=== PATIENT | male | born 1960 | race Two or more races ===

== ENCOUNTER 2019-11-07 14:42 | Inpatient (IN) | payer MEDICARE, OTHER ==
[~2019-11-07] VITALS: Ht 165.1 cm; Wt 59.9 kg
[~2019-11-07 14:42] MED LIST: ACET650S26 NG; AMLO10TA7 GT; Blood Sugar Diagnostic VI; CHOL10002 GT; FOLI0.8T2 GT; HYDR50TA68 GT; INSU100V28 SQ; LOSA50TA3 GT; MINO2.5T GT; PROT30LI GT; SEVE0.8P GT; SUCR1ORA GT; ZINC1CAP2 GT
--- NOTE | 2019-11-07 15:06 | NUR ---
PT IS IN ROOM #1B. DR MIRZA EVALUATED THE PT.
[2019-11-07 15:26] LABS: BASOPHILS # (AUTO) 0.1 K/uL (0.0-8.0); EOSINOPHILS # (AUTO) 0.2 K/uL (0.0-0.7); EOSINOPHILS % (AUTO) 1.3 % (0.0-7.0); NEUTROPHILS # (AUTO) 12.1 K/uL (1.8-8.9); WHITE BLOOD COUNT (AUTO) 14.2 K/uL (3.6-10.2)
[2019-11-07 15:27] LABS: BASOPHILS % (AUTO) 0.9 % (0.0-2.0); LYMPHOCYTES # (AUTO) 1.1 K/uL (20.0-40.0); LYMPHOCYTES % (AUTO) 7.4 % (20.5-51.5); MEAN CORPUSCULAR HEMOGLOBIN 30.6 uug (23.8-33.4); MEAN CORPUSCULAR HGB CONC 34 g/dL (32.5-36.3); MEAN CORPUSCULAR VOLUME 91.4 fL (73.0-96.2); MONOCYTES # (AUTO) 0.7 K/uL (2.0-10.0); NEUTROPHILS % (AUTO) 85.4 % (38.5-71.5); PLATELET COUNT (AUTO) 268 K/uL (152-348)
[2019-11-07] MEDS ORDERED: ONDA4TAB5 GT (15:28)
[2019-11-07] MEDS ORDERED: EPOE1VIA12 SQ (15:28)
[2019-11-07] MEDS ORDERED: IPRA3AMP22 HHN (15:28)
[2019-11-07] MEDS ORDERED: LEVO25TA9 GT (15:28)
[2019-11-07 15:29] LABS: RED BLOOD CELL COUNT(AUTO) 2.23 MIL/uL (4.06-5.63)
[2019-11-07 15:30] LABS: HEMATOCRIT 20.4 % (36.7-47.1); HEMOGLOBIN 6.8 g/dL (12.5-16.3)
[2019-11-07 15:34] LABS: CREATININE 3.2 mg/dL (0.6-1.3); POTASSIUM 2.9 mmol/L (3.5-5.1)
--- NOTE | 2019-11-07 15:37 | NUR ---
called [facility] for panel call
[2019-11-07 15:39] LABS: BILIRUBIN,TOTAL 0.3 mg/dL (0.2-1.0)
[2019-11-07 15:40] LABS: BILIRUBIN,DIRECT 0.1 mg/dL (0.0-0.2); TOTAL PROTEIN, SERUM 7.3 g/dL (6.4-8.2)
--- NOTE | 2019-11-07 17:03 | NUR ---
DR MIRZA DISCUSSED PT CARE WITH DR ARORA. ACCORDING TO DR ARORA PT DOES NOT NEED COVID19 TEST ORIOR TO ADMISSION TO [facility].
[2019-11-07] MEDS ORDERED: Z GUARD REMEDY PASTE 57 GM TUBE TOP PRN (17:15)
[2019-11-07] MEDS ORDERED: MAGNESIUM HYDROXIDE 30 ML LIQUID UDC GT PRN (17:15)
[2019-11-07] MEDS ORDERED: ACETAMINOPHEN 325 MG TABLET GT PRN (17:15)
--- NOTE | 2019-11-07 18:22 | NUR ---
REPORT WAS GIVEN TO RN [facility]. PT WAS TRANSFERED TO [facility] ROOM #312.
[2019-11-07 18:39] LABS: NEUTROPHILS % (MANUAL) 85 % (42-75)
[2019-11-07 18:40] LABS: EOSINOPHILS % (MANUAL) 3 % (0-8); LYMPHOCYTES % (MANUAL) 7 % (20-40); MONOCYTES % (MANUAL) 5 % (2-10)
[2019-11-07 19:45] VITALS: BP 138/50
[2019-11-07] MEDS: POTASSIUM CHLORIDE 50 ML IV SCH ×4 (19:45→23:09)
[2019-11-07] MEDS: HYDROCODONE/APAP 5-325MG TABLET GT PRN (20:39)
[2019-11-07] MEDS ORDERED: ONDANSETRON HCL 4 MG TABLET GT PRN (20:45)
[2019-11-07] MEDS ORDERED: ACETAMINOPHEN 650 MG/20 ML UDC- SA PATIENTS-PAIN ONLY NG PRN (20:45)
[2019-11-07] MEDS ORDERED: INSULIN REGULAR, HUMAN 300 UNIT/3 ML VIAL SQ PRN ×2 (20:45→21:15)
[2019-11-07] MEDS ORDERED: DEXTROSE 50% 50 ML DISP.SYRIN IV PRN (21:15)
[2019-11-07] MEDS ORDERED: BLOOD SUGAR DIAGNOSTIC 1 EACH STRIP VI SCH (21:15)
[2019-11-07] MEDS: MINOXIDIL 2.5 MG TABLET GT SCH (22:34)
[2019-11-07] MEDS: hydrALAZINE HCL 50 MG TABLET GT SCH (22:35)
[2019-11-07] MEDS: SUCRALFATE 1 G/10 ML LIQUID UDC GT SCH (22:38)
[2019-11-07 23:14] VITALS: BP 125/52
[2019-11-07 23:29] VITALS: BP 133/49
[2019-11-08] VITALS (8 sets, daily range): BP systolic 108–147; BP diastolic 27–74
[2019-11-08] MEDS ORDERED: Medication Not On Formulary EA (Ipratropium/Albuterol Sulfate (Ipratr-Albuterol 0.5-3 Mg HHN SCH
[2019-11-08] MEDS: BLOOD SUGAR DIAGNOSTIC 1 EACH STRIP VI SCH ×5 (00:06→23:30)
[2019-11-08] MEDS: NEPRO 1000 ML GT PRN ×2 (00:39→23:30)
[2019-11-08] MEDS: ALBUTEROL SULFATE 2.5 MG/ 0.5 ML NEBU NEB SCH ×4 (02:20→20:53)
[2019-11-08] MEDS: IPRATROPIUM BROMIDE 0.5 MG/2.5 ML NEBU NEB SCH ×4 (02:20→20:53)
[2019-11-08] MEDS: POTASSIUM CHLORIDE 50 ML IV SCH ×4 (03:12→06:07)
[2019-11-08] MEDS: MINOXIDIL 2.5 MG TABLET GT SCH ×3 (05:10→20:47)
[2019-11-08] MEDS: hydrALAZINE HCL 50 MG TABLET GT SCH ×3 (05:10→22:22)
--- NOTE | 2019-11-08 06:00 | NUR ---
ADMITTED TO ROOM 312; ADMISSION PROCEDURES DONE; RECTAL TUBE CHANGED; BLOOD TRANSFUSION DONE AND TOLERATED WELL; MAMTA CARE DONE; REFERRED TO [facility] FOR SKIN ISSUES; POTASSIUM REPLACED PER DR ARORA; REPOSITIONED Q2H; C/O PAIN LAST NIGHT AND MEDICATED WITH NORCO WITH GOOD RESULT.
[2019-11-08] MEDS: SUCRALFATE 1 G/10 ML LIQUID UDC GT SCH ×4 (06:09→20:49)
[2019-11-08] MEDS: LEVOTHYROXINE SODIUM 25 MCG TABLET GT SCH (06:09)
--- NOTE | 2019-11-08 07:15 | NUR ---
Received patient in bed, awake and responsive. trach tube intact and midline. connected to ventilator with Settings of AC 20 VT 550 peep +5 FiO2 40%. No signs of distress noted. No complain of Pain or discomfort. GT intact and patent. Abdomen soft and non distended. Will continue to monitor.
[2019-11-08 07:37] LABS: BASOPHILS # (AUTO) 0.2 K/uL (0.0-8.0); BASOPHILS % (AUTO) 1.4 % (0.0-2.0); EOSINOPHILS # (AUTO) 0.3 K/uL (0.0-0.7); EOSINOPHILS % (AUTO) 1.8 % (0.0-7.0); HEMATOCRIT 22.1 % (36.7-47.1); LYMPHOCYTES # (AUTO) 1.2 K/uL (20.0-40.0); LYMPHOCYTES % (AUTO) 7.8 % (20.5-51.5); MEAN CORPUSCULAR HEMOGLOBIN 30.1 uug (23.8-33.4); MEAN CORPUSCULAR HGB CONC 34 g/dL (32.5-36.3); MEAN CORPUSCULAR VOLUME 89.5 fL (73.0-96.2); MONOCYTES # (AUTO) 0.8 K/uL (2.0-10.0); MONOCYTES % (AUTO) 5.3 % (0.0-11.0); NEUTROPHILS % (AUTO) 83.7 % (38.5-71.5); PLATELET COUNT (AUTO) 241 K/uL (152-348); WHITE BLOOD COUNT (AUTO) 15.5 K/uL (3.6-10.2)
--- NOTE | 2019-11-08 07:46 | NUR ---
PT RECEIVED TRACH TO VENT ON CMV, MINDY #8 TRACH IS PATENT AND SECURE. PT IS ON A MEJIA VENT ON SETTINGS OF A/C 20, VT 550, PEEP +5, AND 40% FIO2. PT IS TOLERATING VENT SETTINGS WELL, NO RESP. DISTRESS NOTED. IN-LINE TX TOLERATED WELL, NO ADVERSE REACTION NOTED. BACK-UP TRACH AND BVM AT BEDSIDE. VENT PLUGGED INTO RED OUTLET. SUCTION PRN. WILL CONTINUE TO MONITOR.
[2019-11-08 07:58] LABS: CREATININE 3.9 mg/dL (0.6-1.3); MAGNESIUM 2.3 mg/dL (1.8-2.4); PHOSPHOROUS 3.2 mg/dL (2.5-4.9); POTASSIUM 3.9 mmol/L (3.5-5.1)
[2019-11-08] MEDS: ZINC SULFATE 220 MG CAPSULE GT SCH (08:10)
[2019-11-08] MEDS: ACETAMINOPHEN 650 MG/20.3 ML LIQUID UDC GT PRN ×2 (08:10→16:51)
[2019-11-08] MEDS: CHOLECALCIFEROL 1,000 UNIT TABLET GT SCH (08:10)
[2019-11-08] MEDS: FOLIC ACID/VITAMIN B COMP W-C TABLET GT SCH (08:11)
[2019-11-08] MEDS: PROTEIN SUPPLEMENT (PROSTAT) 30 ML LIQUID PO SCH (08:11)
[2019-11-08 08:18] LABS: RED BLOOD CELL COUNT(AUTO) 2.47 MIL/uL (4.06-5.63)
[2019-11-08 08:19] LABS: HEMOGLOBIN 7.4 g/dL (12.5-16.3)
[2019-11-08] MEDS: SEVELAMER CARBONATE 800 MG POWD.PACK GT SCH ×3 (08:42→17:29)
[2019-11-08] MEDS: AMLODIPINE 10 MG TABLET GT SCH (09:00)
[2019-11-08] MEDS: LOSARTAN POTASSIUM 50 MG TABLET GT SCH ×2 (09:00→17:00)
--- NOTE | 2019-11-08 09:00 | NUR ---
Blood pressure medication was held, Patient will have Dialysis today.
[2019-11-08] MEDS: HYDROCODONE/APAP 5-325MG TABLET GT PRN ×2 (13:42→20:47)
--- NOTE | 2019-11-08 18:21 | NUR ---
patient in bed, trach tube intact and midline. No signs of distress noted. Afebrile. pain medication given as ordered. Patient is dialyzing at this time started at 1630. BS at 1800 was 114. All needs attended and met. kept clean and comfortable. Will continue to monitor.
--- NOTE | 2019-11-08 18:50 | NUR ---
Dialysis output 2000ml.
[2019-11-09] VITALS: BP 156/44
[2019-11-09] MEDS: IPRATROPIUM BROMIDE 0.5 MG/2.5 ML NEBU NEB SCH ×4 (01:01→19:53)
[2019-11-09] MEDS: ALBUTEROL SULFATE 2.5 MG/ 0.5 ML NEBU NEB SCH ×4 (01:01→19:53)
[2019-11-09] MEDS: HYDROCODONE/APAP 5-325MG TABLET GT PRN ×3 (03:53→14:59)
[2019-11-09] MEDS: MINOXIDIL 2.5 MG TABLET GT SCH ×3 (03:55→21:10)
--- NOTE | 2019-11-09 04:00 | NUR ---
Pt rested well; oral care and trache care done; cleansed enrique rectum and applied mepilex to sacrum; needs attended.
[2019-11-09 04:06] VITALS: BP 134/42
[2019-11-09] MEDS: hydrALAZINE HCL 50 MG TABLET GT SCH ×3 (05:50→21:39)
[2019-11-09] MEDS: BLOOD SUGAR DIAGNOSTIC 1 EACH STRIP VI SCH ×3 (05:51→17:26)
[2019-11-09] MEDS: LEVOTHYROXINE SODIUM 25 MCG TABLET GT SCH (06:17)
[2019-11-09] MEDS: SUCRALFATE 1 G/10 ML LIQUID UDC GT SCH ×4 (06:17→21:11)
--- NOTE | 2019-11-09 06:37 | NUR ---
Pt rested well in between care; VSS; needs attended; HD nurse here and patient refused dialysis this AM; Dr Pantoja here as well and is aware.
[2019-11-09 06:50] LABS: BASOPHILS # (AUTO) 0.1 K/uL (0.0-8.0); BASOPHILS % (AUTO) 0.8 % (0.0-2.0); EOSINOPHILS # (AUTO) 0.3 K/uL (0.0-0.7); EOSINOPHILS % (AUTO) 1.8 % (0.0-7.0); HEMATOCRIT 21.4 % (36.7-47.1); LYMPHOCYTES # (AUTO) 0.8 K/uL (20.0-40.0); LYMPHOCYTES % (AUTO) 4.5 % (20.5-51.5); MEAN CORPUSCULAR HEMOGLOBIN 30.5 uug (23.8-33.4); MEAN CORPUSCULAR HGB CONC 34 g/dL (32.5-36.3); MEAN CORPUSCULAR VOLUME 90.5 fL (73.0-96.2); MONOCYTES # (AUTO) 0.9 K/uL (2.0-10.0); MONOCYTES % (AUTO) 4.9 % (0.0-11.0); NEUTROPHILS # (AUTO) 16.1 K/uL (1.8-8.9); PLATELET COUNT (AUTO) 249 K/uL (152-348); WHITE BLOOD COUNT (AUTO) 18.3 K/uL (3.6-10.2)
[2019-11-09 06:55] LABS: CREATININE 3.3 mg/dL (0.6-1.3); POTASSIUM 3.6 mmol/L (3.5-5.1)
[2019-11-09 07:20] VITALS: BP 186/75
[2019-11-09 07:23] LABS: ABG BASE EXCESS 1.9 mmol/L; ABG HCO3 26.2 mmol/L; ABG PCO2 39.5 mmHg (35.0-45.0); ABG PO2 148.6 mmHg (75.0-100.0); ABG SITE RIGHT RADIAL; ABG TOTAL HEMOGLOBIN 7.4 G/dL (13.5-18.0); COHb 1.2 % (0.5-1.5); MetHb 0.6 % (0.0-1.5); O2Hb 97.8 % (94.0-97.0); VENT MODE VENT - A/C; VT, ABG 550 mL
[2019-11-09] MEDS: ACETAMINOPHEN 650 MG/20.3 ML LIQUID UDC GT PRN ×2 (07:23→13:32)
[2019-11-09] MEDS: PROTEIN SUPPLEMENT (PROSTAT) 30 ML LIQUID PO SCH (07:25)
[2019-11-09] MEDS: SEVELAMER CARBONATE 800 MG POWD.PACK GT SCH ×3 (07:25→17:10)
--- NOTE | 2019-11-09 07:30 | NUR ---
Received patient in bed, trach tube intact and midline connected to Ventilator. No complain of SOB, saturating 100%. patient noted with Temp of 100.1, Tylenol 650mg given as ordered. No complain of pain or discomfort. Kept clean and comfortable. Will continue to monitor.
[2019-11-09 07:53] LABS: HEMOGLOBIN 7.2 g/dL (12.5-16.3); RED BLOOD CELL COUNT(AUTO) 2.36 MIL/uL (4.06-5.63)
[2019-11-09] MEDS: FOLIC ACID/VITAMIN B COMP W-C TABLET GT SCH (08:02)
[2019-11-09] MEDS: CHOLECALCIFEROL 1,000 UNIT TABLET GT SCH (08:02)
[2019-11-09] MEDS: ZINC SULFATE 220 MG CAPSULE GT SCH (08:02)
[2019-11-09] MEDS: LOSARTAN POTASSIUM 50 MG TABLET GT SCH ×2 (08:17→16:41)
[2019-11-09] MEDS: AMLODIPINE 10 MG TABLET GT SCH (08:18)
--- NOTE | 2019-11-09 10:33 | NUR ---
Started Blood transfusion, BP 120/27 P 100 R 20 T 98.8 PA 0/10.
[2019-11-09 11:30] VITALS: BP 130/28
--- NOTE | 2019-11-09 12:07 | NUR ---
WOUND CARE CONSULT: PT NOT TURNED AT THIS TIME DUE TO BLOOD TRANSFUSION IN PROGRESS. LEFT HEEL INTACT DEEP TISSUE INJURY NOTED TO BE PRESENT ON ADMISSION. REVIEWED ADMISSION PHOTOS WHICH SHOW SOME INCONTINENCE ASSOCIATED SKIN DAMAGE AROUND RECTAL TUBE AND THICKENED SCAR TO SACRAL AREA, PRESENT ON ADMISSION. RECOMMENDATIONS MADE FOR SKIN PROTECTION AND WOUND CARE. DISCUSSED WITH NURSING STAFF. MD IN AGREEMENT WITH PLAN OF CARE. Addendum: 11/09/19 at 1211 by GABI NICHOLSON RN FIRST STEP LOW AIRLOSS MATTRESS IS ON ORDER.
[2019-11-09] MEDS ORDERED: EPOETIN ALFA 10,000 UNITS/ML VIAL SQ SCH (15:00)
[2019-11-09 15:01] LABS: BASOPHILS # (AUTO) 0.1 K/uL (0.0-8.0); BASOPHILS % (AUTO) 0.4 % (0.0-2.0); EOSINOPHILS # (AUTO) 0.2 K/uL (0.0-0.7); EOSINOPHILS % (AUTO) 0.6 % (0.0-7.0); HEMATOCRIT 25.6 % (36.7-47.1); HEMOGLOBIN 8.4 g/dL (12.5-16.3); LYMPHOCYTES # (AUTO) 0.9 K/uL (20.0-40.0); MEAN CORPUSCULAR HEMOGLOBIN 29.7 uug (23.8-33.4); MEAN CORPUSCULAR HGB CONC 33 g/dL (32.5-36.3); MONOCYTES # (AUTO) 1.4 K/uL (2.0-10.0); MONOCYTES % (AUTO) 4.8 % (0.0-11.0); NEUTROPHILS # (AUTO) 27.2 K/uL (1.8-8.9); NEUTROPHILS % (AUTO) 91.2 % (38.5-71.5); PLATELET COUNT (AUTO) 272 K/uL (152-348); RED BLOOD CELL COUNT(AUTO) 2.81 MIL/uL (4.06-5.63); WHITE BLOOD COUNT (AUTO) 29.9 K/uL (3.6-10.2)
[2019-11-09 15:28] VITALS: BP 148/56
--- NOTE | 2019-11-09 17:14 | NUR ---
Patient is awake and responsive. trach tube intact and midline, connected to ventilator. Suctioned PRN. Pain medication given as ordered. Patient noted with temperature of 100.0F, tylenol 650 mg given as ordered. continuos cooling measures provided Dr. Orona is aware. current temperature 99.8F. 1 unit PRBC given, current hgb is 8.4. kept clean and comfortable. All needs attended and met. Will endorse to Oncoming Nurse.
[2019-11-09 20:11] VITALS: BP 117/37
--- NOTE | 2019-11-09 20:26 | NUR ---
RECEIVED PT IN BED,,ALERT ORIENTED, VERBALLY RESPONSIVE,MACEDONIAN SPEAKING, ABLE TO MAKE NEEDS KNOWN.TELE READING SINUS TACH 105, HOB UP, REPOSITIONED FOR COMFORT, USES YONKER SUCTION TIP PRN,COOLING MEASURES IMPLEMENTED, STILL WITH TEMP 100.2, GT FEEDING ON AT 60 ML./HR,RT UPPER ARM PICC LINE INTACT AND PATENT, AV SHUNT ON L UPPER ARM PRESENT.SAMANTHA HEELS OFF LOADED.ABDOMEN SOFT AND NON DISTENDE.RECTAL RUBE IN PLACE.CALL LITE W/I REACH.RESP THERAPIST AT BEDSIDE, TREATMENT ADMINISTERED AND TOLERATED WELL.KEPT COOL AND COMFORTABLE.
--- NOTE | 2019-11-09 22:00 | NUR ---
RESTING QUIETLY , NO ACUTE DISTRESS NOTED.
[2019-11-10] VITALS (10 sets, daily range): BP systolic 101–141; BP diastolic 26–60
[2019-11-10] MEDS: BLOOD SUGAR DIAGNOSTIC 1 EACH STRIP VI SCH ×5 (00:15→23:46)
--- NOTE | 2019-11-10 00:15 | NUR ---
ACCUCHECK DONE 106, NO SSX OF DIABETIC CRISIS PRESENTED, LATEST TEMP 99.3, STILL SINUS TACH 95,REPOSITIONED.
[2019-11-10] MEDS: IPRATROPIUM BROMIDE 0.5 MG/2.5 ML NEBU NEB SCH ×4 (01:58→20:08)
[2019-11-10] MEDS: ALBUTEROL SULFATE 2.5 MG/ 0.5 ML NEBU NEB SCH ×4 (01:58→20:08)
[2019-11-10] MEDS: ONDANSETRON 4 MG/2 ML VIAL IV PRN (02:48)
--- NOTE | 2019-11-10 02:56 | NUR ---
suctioned aseptically via trach copious amt of thick greenish secretions,procedure tolerated well by pt, complained of nausea, zofran iv given.no actual emesis noted.
--- NOTE | 2019-11-10 06:32 | NUR ---
ENDORSED TO AM SHIFT NURSE IN AM CARE DONE, GT FEED STOPPED AND WILL BE ON AT 10 ,O2 RESTING AT THIS TIME. SAT AT 100%, SINUS R 77,BS 99.
[2019-11-10] MEDS: MINOXIDIL 2.5 MG TABLET GT SCH ×3 (06:39→20:54)
[2019-11-10] MEDS: hydrALAZINE HCL 50 MG TABLET GT SCH (06:42)
[2019-11-10] MEDS: LEVOTHYROXINE SODIUM 25 MCG TABLET GT SCH (06:46)
[2019-11-10] MEDS: ACETAMINOPHEN 650 MG/20.3 ML LIQUID UDC GT PRN (06:47)
[2019-11-10 06:48] LABS: BASOPHILS # (AUTO) 0.1 K/uL (0.0-8.0); MEAN CORPUSCULAR VOLUME 91.2 fL (73.0-96.2)
[2019-11-10 06:51] LABS: BASOPHILS % (AUTO) 0.4 % (0.0-2.0); EOSINOPHILS % (AUTO) 0.2 % (0.0-7.0); HEMATOCRIT 21.5 % (36.7-47.1); LYMPHOCYTES # (AUTO) 0.9 K/uL (20.0-40.0); LYMPHOCYTES % (AUTO) 3.4 % (20.5-51.5); MEAN CORPUSCULAR HEMOGLOBIN 30.1 uug (23.8-33.4); MEAN CORPUSCULAR HGB CONC 33 g/dL (32.5-36.3); MONOCYTES # (AUTO) 1.2 K/uL (2.0-10.0); MONOCYTES % (AUTO) 4.7 % (0.0-11.0); NEUTROPHILS # (AUTO) 23.8 K/uL (1.8-8.9); NEUTROPHILS % (AUTO) 91.3 % (38.5-71.5); PLATELET COUNT (AUTO) 234 K/uL (152-348); WHITE BLOOD COUNT (AUTO) 26.1 K/uL (3.6-10.2)
[2019-11-10 07:04] LABS: HEMOGLOBIN 7.1 g/dL (12.5-16.3); RED BLOOD CELL COUNT(AUTO) 2.36 MIL/uL (4.06-5.63)
[2019-11-10 07:20] LABS: CREATININE 4.4 mg/dL (0.6-1.3); POTASSIUM 3.7 mmol/L (3.5-5.1)
--- NOTE | 2019-11-10 07:30 | NUR ---
SEEN BY DR ARORA NOTED LOW HH WITH ORDER TO TRANSFUSE 1 UNIT PRBC. PATIENT AWAKE, ALERT AND ABLE TO RESPOND THROUGH GESTURES. NO SS OF DISTRESS WITH VENT SETTINGS AT 20-550-40-5
[2019-11-10] MEDS: SUCRALFATE 1 G/10 ML LIQUID UDC GT SCH ×4 (07:57→20:55)
[2019-11-10] MEDS: HYDROCODONE/APAP 5-325MG TABLET GT PRN (07:58)
[2019-11-10] MEDS: FOLIC ACID/VITAMIN B COMP W-C TABLET GT SCH (08:00)
[2019-11-10] MEDS: CHOLECALCIFEROL 1,000 UNIT TABLET GT SCH (08:00)
[2019-11-10] MEDS: ZINC SULFATE 220 MG CAPSULE GT SCH (08:00)
[2019-11-10] MEDS: SEVELAMER CARBONATE 800 MG POWD.PACK GT SCH ×3 (08:01→17:28)
[2019-11-10] MEDS: PROTEIN SUPPLEMENT (PROSTAT) 30 ML LIQUID PO SCH (08:03)
[2019-11-10] MEDS: LOSARTAN POTASSIUM 50 MG TABLET GT SCH ×2 (08:03→16:15)
[2019-11-10] MEDS: AMLODIPINE 10 MG TABLET GT SCH (08:04)
[2019-11-10] MEDS ORDERED: NEPRO 1000 ML GT PRN (08:15)
--- NOTE | 2019-11-10 09:22 | NUR ---
blood transfusion started by dialysis nurse. closely monitored
--- NOTE | 2019-11-10 10:27 | NUR ---
BLOOD TRANSFUSION COMPLETED WITHOUT ANY REACTION, CONTINUE WITH HD. CLOSELY MONITORED
[2019-11-10] MEDS: NEPRO 1000 ML GT PRN (12:13)
[2019-11-10] MEDS ORDERED: hydrALAZINE HCL 50 MG TABLET GT PRN (13:15)
--- NOTE | 2019-11-10 14:35 | NUR ---
SEEN BY DR COTTRELL MADE AWARE OF LOW BP, ADJUSTED MEDS WITH PARAMETERS.
--- NOTE | 2019-11-10 20:45 | NUR ---
Received hand-off report from IBRAHIMA Ambrosio. Patient received into care, laying in bed, resting comfortably. Patient is alert/oriented x3 and has no complaints of pain or discomfort and this nurse does not observe any s/s of acute distress or discomfort. All safety, vent, and fall precaution measures are in place. Call light and personal items are within reach at all times. Will continue to monitor and assess.
--- NOTE | 2019-11-10 23:00 | NUR ---
Patient requesting to have his feeding turned off. This nurse explained risks/benefits three times regarding turning off feeding but patient still insists on having feeding turned off. This nurse turned off feeding at patient's request.
[2019-11-11] VITALS (18 sets, daily range): BP systolic 55–177; BP diastolic 28–72
--- NOTE | 2019-11-11 00:47 | NUR ---
Patient complaining of bloating/gas pressure. This nurse reviewed emar and found no rx for simethicone. This nurse contacted [facility] and spoke with ty Joyce who gave t.o. for simethicone via [employer].
[2019-11-11] MEDS ORDERED: SIMETHICONE 80 MG TAB.CHEW GT PRN (01:00)
--- NOTE | 2019-11-11 01:00 | NUR ---
This nurse was notified by JOHNY Peraza that patient has temperature of 102.8. This nurse implemented cooling measures and provided patient prescribed Tylenol via gtube. Patient is also complaining of nausea. Addendum: 11/11/19 at 0144 by XENA HOBBS RN [id number] This nurse provided patient with prescribed zofran via IV push to help relieve complaints of nausea. Patient now complaining that he is not getting any air. Pulse ox reflects 98% oxygen saturation, however, this nurse called Respiratory and spoke with RT Garcia who said he will come and see patient regarding request for air.
[2019-11-11] MEDS: ONDANSETRON 4 MG/2 ML VIAL IV PRN ×2 (01:09→17:36)
[2019-11-11] MEDS: ACETAMINOPHEN 650 MG/20.3 ML LIQUID UDC GT PRN ×2 (01:09→13:30)
[2019-11-11] MEDS: ALBUTEROL SULFATE 2.5 MG/ 0.5 ML NEBU NEB SCH ×4 (01:19→20:08)
[2019-11-11] MEDS: IPRATROPIUM BROMIDE 0.5 MG/2.5 ML NEBU NEB SCH ×4 (01:19→20:08)
--- NOTE | 2019-11-11 04:17 | NUR ---
This nurse notified on-call COPING MACHINE OPERATOR Isiah of patient having 2 episodes of coffee ground emesis and noted tachycardia. Waiting for COPING MACHINE OPERATOR's return call.
[2019-11-11] MEDS: MINOXIDIL 2.5 MG TABLET GT SCH ×4 (04:45→20:47)
--- NOTE | 2019-11-11 05:00 | NUR ---
Patient slept intermittently throughout night with all nursing needs met promptly. All safety and fall precaution measures remain in place. Call light and personal items remain within reach.
--- NOTE | 2019-11-11 05:56 | NUR ---
This nurse spoke with HYPERION ANALYST Isiah regarding episodes of emesis, multiple episodes of burping, and this nurse providing gas relief via g-tube. HYPERION ANALYST Isiah advised to place pt as NPO and order GI consult with MD Foote. This nurse read back order to HYPERION ANALYST and processed orders as requested by HYPERION ANALYST.
--- NOTE | 2019-11-11 06:15 | NUR ---
Patient request for this nurse to removed BL compression devices. This nurse explained the risks/benefits three times but patient still request for the compression devices to be removed. This nurse removed BL compression devices per patient's request. Patient then request for this nurse to remove O2 saturation monitor. This nurse advised patient that monitor must stay on so that this nurse can evaluate his oxygen saturation. This nurse left the O2 monitor in place.
[2019-11-11] MEDS: BLOOD SUGAR DIAGNOSTIC 1 EACH STRIP VI SCH ×3 (06:30→17:32)
[2019-11-11] MEDS: LEVOTHYROXINE SODIUM 25 MCG TABLET GT SCH (06:31)
[2019-11-11] MEDS: SUCRALFATE 1 G/10 ML LIQUID UDC GT SCH ×4 (06:31→20:52)
--- NOTE | 2019-11-11 07:31 | NUR ---
pt rec'd awake, alert on recinos vent. pt vent'd via trach in place, patent and secure, pt is tolerating current vent settings well. In-line neb tx's given per MD order. vent alarms audible, checked and reset, bvm/backup trach at bedside.
[2019-11-11] MEDS: SEVELAMER CARBONATE 800 MG POWD.PACK GT SCH ×3 (08:00→17:31)
[2019-11-11] MEDS: PROTEIN SUPPLEMENT (PROSTAT) 30 ML LIQUID PO SCH (08:00)
--- NOTE | 2019-11-11 08:00 | NUR ---
AWAKE ALERT AND ABLE TO ANSWER SIMPLE QUESTIONS APPROPRIATELY, NO SS OF PAIN OR DISTRESS ST ON MONITOR. CONTINUE WITH [facility] OBSERVATION
[2019-11-11 08:35] LABS: BASOPHILS # (AUTO) 0.1 K/uL (0.0-8.0); BASOPHILS % (AUTO) 0.3 % (0.0-2.0); EOSINOPHILS % (AUTO) 0.1 % (0.0-7.0); HEMATOCRIT 25.6 % (36.7-47.1); HEMOGLOBIN 8.5 g/dL (12.5-16.3); LYMPHOCYTES # (AUTO) 1.4 K/uL (20.0-40.0); LYMPHOCYTES % (AUTO) 5.9 % (20.5-51.5); MEAN CORPUSCULAR HEMOGLOBIN 30.4 uug (23.8-33.4); MEAN CORPUSCULAR HGB CONC 33 g/dL (32.5-36.3); MEAN CORPUSCULAR VOLUME 91.3 fL (73.0-96.2); MONOCYTES # (AUTO) 2.1 K/uL (2.0-10.0); MONOCYTES % (AUTO) 8.7 % (0.0-11.0); NEUTROPHILS # (AUTO) 20.4 K/uL (1.8-8.9); PLATELET COUNT (AUTO) 247 K/uL (152-348)
[2019-11-11 08:40] LABS: CREATININE 3.8 mg/dL (0.6-1.3); POTASSIUM 3.2 mmol/L (3.5-5.1)
[2019-11-11] MEDS: LOSARTAN POTASSIUM 50 MG TABLET GT SCH ×2 (08:45→16:17)
[2019-11-11] MEDS: FOLIC ACID/VITAMIN B COMP W-C TABLET GT SCH (08:46)
[2019-11-11] MEDS: CHOLECALCIFEROL 1,000 UNIT TABLET GT SCH (08:46)
[2019-11-11] MEDS: ZINC SULFATE 220 MG CAPSULE GT SCH (08:46)
[2019-11-11] MEDS: AMLODIPINE 10 MG TABLET GT SCH (08:46)
[2019-11-11] MEDS: HYDROCODONE/APAP 5-325MG TABLET GT PRN ×2 (10:01→13:39)
--- NOTE | 2019-11-11 13:18 | NUR ---
CONTINUE WITH [facility] MONITORING, NO SS OF DISTRESS WITH VENT SETS AT 20-550-40-5. REQUIRES FREQUENT SUCTIONING/PATIENT SUCTION SELF ORALLY WITH MODERATE THICK WHITE SECRETION. GOOD ORAL CARE DONE
--- NOTE | 2019-11-11 15:29 | NUR ---
SEEN BY DR COTTRELL FOR CARDIAC FOLLOW-UP, SEE NOTES
--- NOTE | 2019-11-11 17:49 | NUR ---
PATIENT KEEPS WIPING MOUTH WITH WASHCLOTHS AND NOTED TO HAVE DARK BROWN STAINED MODERATE AMOUNT. DR ARORA NOTIFIED AND ORDER STAT H/H
[2019-11-11 19:13] LABS: HEMATOCRIT 22.7 % (36.7-47.1); HEMOGLOBIN 7.5 g/dL (12.5-16.3)
--- NOTE | 2019-11-11 21:30 | NUR ---
Dr Orona here and reported H/H; ordered to transfuse one unit PRBC;
--- NOTE | 2019-11-11 22:30 | NUR ---
Rapid Response called, for low B/P. Transferred patient to ICU #3. Trach Shabbir #8: vent A/C 20, FiO2 100 %, TV 550, PEEP 5: sAo2 100%. Diaphoretic. Andreas colored lloyd. Noted vital signs.
--- NOTE | 2019-11-11 22:30 | NUR ---
Pt found to be diaphoretic; blood sugar check = 102; blood pressure low76/35 and 55/27; Rapid response was called and transferred to CCU bed 3; bedside report given to Mohit.
--- NOTE | 2019-11-11 23:10 | NUR ---
Dr Orona telephone aware pt now in ICU s/p low B/P episode.
[2019-11-12] VITALS (18 sets, daily range): BP systolic 102–153; BP diastolic 30–80
[2019-11-12] MEDS: BLOOD SUGAR DIAGNOSTIC 1 EACH STRIP VI SCH ×5 (00:23→23:38)
[2019-11-12] MEDS: ALBUTEROL SULFATE 2.5 MG/ 0.5 ML NEBU NEB SCH ×4 (01:12→20:13)
[2019-11-12] MEDS: IPRATROPIUM BROMIDE 0.5 MG/2.5 ML NEBU NEB SCH ×4 (01:12→20:13)
[2019-11-12] MEDS: MINOXIDIL 2.5 MG TABLET GT SCH ×2 (04:20→16:15)
[2019-11-12] MEDS: SUCRALFATE 1 G/10 ML LIQUID UDC GT SCH ×4 (05:26→21:00)
[2019-11-12] MEDS: LEVOTHYROXINE SODIUM 25 MCG TABLET GT SCH (05:26)
[2019-11-12 05:38] LABS: BASOPHILS # (AUTO) 0.1 K/uL (0.0-8.0); BASOPHILS % (AUTO) 0.5 % (0.0-2.0); EOSINOPHILS # (AUTO) 0.1 K/uL (0.0-0.7); EOSINOPHILS % (AUTO) 0.3 % (0.0-7.0); HEMATOCRIT 25.5 % (36.7-47.1); HEMOGLOBIN 8.5 g/dL (12.5-16.3); LYMPHOCYTES # (AUTO) 0.9 K/uL (20.0-40.0); MEAN CORPUSCULAR HEMOGLOBIN 30.4 uug (23.8-33.4); MEAN CORPUSCULAR HGB CONC 33 g/dL (32.5-36.3); MEAN CORPUSCULAR VOLUME 91.3 fL (73.0-96.2); MONOCYTES # (AUTO) 0.9 K/uL (2.0-10.0); MONOCYTES % (AUTO) 5.2 % (0.0-11.0); NEUTROPHILS # (AUTO) 15.7 K/uL (1.8-8.9); PLATELET COUNT (AUTO) 220 K/uL (152-348); RED BLOOD CELL COUNT(AUTO) 2.79 MIL/uL (4.06-5.63); WHITE BLOOD COUNT (AUTO) 17.6 K/uL (3.6-10.2)
[2019-11-12 05:46] LABS: BILIRUBIN,TOTAL 0.7 mg/dL (0.2-1.0); CREATININE 4.5 mg/dL (0.6-1.3); MAGNESIUM 2.4 mg/dL (1.8-2.4); PHOSPHOROUS 2.1 mg/dL (2.5-4.9); POTASSIUM 3.4 mmol/L (3.5-5.1); TOTAL PROTEIN, SERUM 7.1 g/dL (6.4-8.2)
--- NOTE | 2019-11-12 07:30 | NUR ---
RECEIVED PT IN BED, HD IN PROGRESS. HR SR. AFEBRILE. NO SOB NOTED ON VENT WITH A SETTING OF AC-20, FIO2-40%, VT-550, PEEP-5. TOLERATING HD
[2019-11-12] MEDS: PROTEIN SUPPLEMENT (PROSTAT) 30 ML LIQUID PO SCH (08:00)
[2019-11-12] MEDS: SEVELAMER CARBONATE 800 MG POWD.PACK GT SCH ×3 (08:00→16:49)
[2019-11-12] MEDS: CHOLECALCIFEROL 1,000 UNIT TABLET GT SCH (09:00)
[2019-11-12] MEDS: LOSARTAN POTASSIUM 50 MG TABLET GT SCH ×2 (09:00→16:49)
[2019-11-12] MEDS: ZINC SULFATE 220 MG CAPSULE GT SCH (09:00)
[2019-11-12] MEDS: AMLODIPINE 10 MG TABLET GT SCH (09:00)
[2019-11-12] MEDS: FOLIC ACID/VITAMIN B COMP W-C TABLET GT SCH (09:00)
--- NOTE | 2019-11-12 09:00 | NUR ---
HEMODIALYSIS DONE. TOTAL FLUID OUT IS 2.5L. PT IS NPO. PEG IS CLAMPED. FLEXISEAL DRAINING MODERATE AMOUNT OF LIQUID BLCKISH STOOLS. GT MEDICATIONS NOT GIVEN BECAUSE PT STILL NPO.
[2019-11-12] MEDS ORDERED: VANCOMYCIN IV 1,000 MG in IV DEXTROSE 5% 250 ML IV ONE (10:00)
--- NOTE | 2019-11-12 10:00 | NUR ---
SEEN AND EXAMINED BY DR ARORA . MARY TO TRANSFER BACK TO [facility].
[2019-11-12] MEDS: CEFEPIME HCL 1 G in IV DEXTROSE 5% 50 ML IV SCH (11:33)
[2019-11-12] MEDS ORDERED: CEFEPIME HCL 2 G in IV DEXTROSE 5% 100 ML IV SCH (14:00)
--- NOTE | 2019-11-12 15:45 | NUR ---
REPORT GIVEN TO HOMER RN.
--- NOTE | 2019-11-12 16:20 | NUR ---
PT TRANSFERRED TO [facility] RM 310 VIA BED. ACCOMPANIED BY RT AND RN. CONDITION IS STABLE
--- NOTE | 2019-11-12 16:30 | NUR ---
Pt received from ccu. Pt is in no acute distress. Call light is within reach. Pt denies any complain of pain.
[2019-11-12 18:12] LABS: BILIRUBIN,TOTAL 0.6 mg/dL (0.2-1.0); MAGNESIUM 2.2 mg/dL (1.8-2.4); PHOSPHOROUS 1.7 mg/dL (2.5-4.9); POTASSIUM 3.2 mmol/L (3.5-5.1)
[2019-11-12] MEDS: HYDROCODONE/APAP 5-325MG TABLET GT PRN (23:38)
[2019-11-13] MEDS: MINOXIDIL 2.5 MG TABLET GT SCH ×2 (00:15→10:01)
[2019-11-13 00:30] VITALS: BP 125/42
[2019-11-13] MEDS: IPRATROPIUM BROMIDE 0.5 MG/2.5 ML NEBU NEB SCH ×4 (02:01→21:40)
[2019-11-13] MEDS: ALBUTEROL SULFATE 2.5 MG/ 0.5 ML NEBU NEB SCH ×4 (02:01→21:40)
[2019-11-13 04:00] VITALS: BP 142/54
[2019-11-13] MEDS: BLOOD SUGAR DIAGNOSTIC 1 EACH STRIP VI SCH ×4 (05:35→23:38)
[2019-11-13] MEDS ORDERED: VANCOMYCIN IV 500 MG in IV DEXTROSE 5% 100 ML IV PRN (06:00)
[2019-11-13 06:53] LABS: BASOPHILS # (AUTO) 0.1 K/uL (0.0-8.0); BASOPHILS % (AUTO) 0.6 % (0.0-2.0); EOSINOPHILS # (AUTO) 0.2 K/uL (0.0-0.7); EOSINOPHILS % (AUTO) 1.2 % (0.0-7.0); HEMATOCRIT 25.7 % (36.7-47.1); HEMOGLOBIN 8.6 g/dL (12.5-16.3); LYMPHOCYTES # (AUTO) 0.8 K/uL (20.0-40.0); LYMPHOCYTES % (AUTO) 5.5 % (20.5-51.5); MEAN CORPUSCULAR HEMOGLOBIN 30.5 uug (23.8-33.4); MEAN CORPUSCULAR HGB CONC 33 g/dL (32.5-36.3); MEAN CORPUSCULAR VOLUME 91.7 fL (73.0-96.2); MONOCYTES # (AUTO) 0.8 K/uL (2.0-10.0); MONOCYTES % (AUTO) 5.6 % (0.0-11.0); NEUTROPHILS # (AUTO) 13.1 K/uL (1.8-8.9); NEUTROPHILS % (AUTO) 87.1 % (38.5-71.5); PLATELET COUNT (AUTO) 223 K/uL (152-348)
[2019-11-13] MEDS: LEVOTHYROXINE SODIUM 25 MCG TABLET GT SCH (07:00)
[2019-11-13 07:02] LABS: CREATININE 3.5 mg/dL (0.6-1.3); MAGNESIUM 2.2 mg/dL (1.8-2.4); POTASSIUM 3.1 mmol/L (3.5-5.1)
[2019-11-13] MEDS: SUCRALFATE 1 G/10 ML LIQUID UDC GT SCH ×4 (07:30→20:48)
[2019-11-13] MEDS: PROTEIN SUPPLEMENT (PROSTAT) 30 ML LIQUID PO SCH (07:34)
[2019-11-13] MEDS: SEVELAMER CARBONATE 800 MG POWD.PACK GT SCH ×3 (07:34→15:27)
--- NOTE | 2019-11-13 07:36 | NUR ---
Kept pt NPO secondary to pt was having severe n/v and abd pain. Will clarify with Hospitalist if they want to restart feeding slowly. Awaiting GI consult. Flexiseal collecting dark brownish stool. Vent settings as ordered. PT on continous pulse ox with saturation of 100%. Flushed NS with minimal resistance on the santana and red lumen and no resistance on white port in PICC line with triple lumen on right brachial no s/s of infiltration and redness. Left av shunt with good bruit. G tube audible in stomach no residual. Pt on air Mattress. Pt vietnamese speaking but able to make his needs known. Pt able to communicate with writing his needs in Mongolian. PT able to self suction himself with Kennedi. PT comfortable in bed and denies any c/o pain. Call light is within reach.
[2019-11-13] MEDS: LOSARTAN POTASSIUM 50 MG TABLET GT SCH ×2 (09:00→15:19)
[2019-11-13] MEDS: FOLIC ACID/VITAMIN B COMP W-C TABLET GT SCH (09:00)
[2019-11-13] MEDS: ZINC SULFATE 220 MG CAPSULE GT SCH (09:00)
[2019-11-13] MEDS: AMLODIPINE 10 MG TABLET GT SCH ×2 (09:00→15:19)
[2019-11-13] MEDS: CHOLECALCIFEROL 1,000 UNIT TABLET GT SCH (10:00)
[2019-11-13] MEDS: CEFEPIME HCL 1 G in IV DEXTROSE 5% 50 ML IV SCH (10:11)
[2019-11-13] MEDS: IV D5/ 0.9% NACL 1,000 ML IV PRN (11:00)
[2019-11-13 11:51] VITALS: BP 146/48
--- NOTE | 2019-11-13 14:00 | NUR ---
Dr rooney aware of K and phos levels. Pharmacy would not replace electrolytes secondary to pt being a kidney patient.
[2019-11-13 15:54] VITALS: BP 181/61
[2019-11-13 18:01] VITALS: BP 150/40
--- NOTE | 2019-11-13 18:01 | NUR ---
Pt remains on recinos vent, with trach in place, patent and secure, tolerating current settings well. In-line neb tx's given per MD order. vent alarms audible, checked and reset, bvm/backup trach at bedside. Secretions, small, thick, white / timmons..
--- NOTE | 2019-11-13 18:03 | NUR ---
B/P rechecked 150/40 HR 82. Pt is in no acute distress. Call light is within reach.
[2019-11-13] MEDS ORDERED: POTASSIUM PHOSPHATE MM 7.5 MMOL in IV NORMAL SALINE 97.5 ML IV ONE (19:00)
[2019-11-13 20:09] VITALS: BP 154/55
--- NOTE | 2019-11-13 23:09 | NUR ---
PT ON CONT MEJIA VENT WITH SAME CURRENT VENT SETTINGS, PT DOES ASSIST AT TIMES, AND AWAKE, CHECK CUFF, SUCTIONED LIGHT PALE YELL TINGE SECRETIONS, GOOD COUGH EFFORT, NO SOB NOTED , NO BLOOD, PT STABLE , TRACH CARE DONE, B/S SLIGHT RHONCHI., Q6 NEB INLINE TOLL WELL. Grace THURMAN SUBPOENA SERVER Addendum: 11/13/19 at 2312 by VICKY THURMAN RT Amended: Links added.
[2019-11-14] MEDS: ENALAPRILAT DIHYDRATE 1.25 MG/1 ML VIAL IV PRN ×2 (00:06→16:20)
[2019-11-14 01:15] LABS: HEPATITIS Be ANTIGEN Negative (Negative)
[2019-11-14] MEDS: IPRATROPIUM BROMIDE 0.5 MG/2.5 ML NEBU NEB SCH ×4 (01:25→19:31)
[2019-11-14] MEDS: ALBUTEROL SULFATE 2.5 MG/ 0.5 ML NEBU NEB SCH ×4 (01:26→19:31)
[2019-11-14 04:00] VITALS: BP 154/65
[2019-11-14 04:12] LABS: HEPATITIS B SURFACE AB Reactive (.); HEPATITIS Be ANTIGEN Negative (Negative)
[2019-11-14] MEDS: BLOOD SUGAR DIAGNOSTIC 1 EACH STRIP VI SCH ×4 (05:14→23:16)
[2019-11-14] MEDS: LEVOTHYROXINE SODIUM 25 MCG TABLET GT SCH (06:14)
--- NOTE | 2019-11-14 06:37 | NUR ---
Patient rested well in between care; repositioned q2h; suctioned secretions orally and via trache; hhn per RT; repositioned q2h; needs attended; BP elevated earlier and vasotec given; HD nurse here and started dialysis.
[2019-11-14 07:25] LABS: BILIRUBIN,TOTAL 0.5 mg/dL (0.2-1.0); CREATININE 4.4 mg/dL (0.6-1.3); MAGNESIUM 2.2 mg/dL (1.8-2.4); PHOSPHOROUS 2.3 mg/dL (2.5-4.9)
[2019-11-14 07:26] LABS: POTASSIUM 2.8 mmol/L (3.5-5.1)
[2019-11-14] MEDS: SUCRALFATE 1 G/10 ML LIQUID UDC GT SCH ×4 (07:30→20:00)
[2019-11-14] MEDS: PROTEIN SUPPLEMENT (PROSTAT) 30 ML LIQUID PO SCH (08:00)
[2019-11-14] MEDS: SEVELAMER CARBONATE 800 MG POWD.PACK GT SCH ×3 (08:00→17:21)
--- NOTE | 2019-11-14 08:00 | NUR ---
AWAKE ALERT WITH ONGOING HEMODIALYSIS TOLERATING FAIRLY, SATURATING 100% WITHE VENT SETTINGS AT 20-550-30-5 SHILEY 8, SR ON MONITOR
[2019-11-14 08:31] LABS: BASOPHILS # (AUTO) 0.1 K/uL (0.0-8.0); BASOPHILS % (AUTO) 0.9 % (0.0-2.0); EOSINOPHILS # (AUTO) 0.2 K/uL (0.0-0.7); EOSINOPHILS % (AUTO) 1.6 % (0.0-7.0); HEMATOCRIT 28.5 % (36.7-47.1); HEMOGLOBIN 9.5 g/dL (12.5-16.3); LYMPHOCYTES % (AUTO) 8.2 % (20.5-51.5); MEAN CORPUSCULAR HEMOGLOBIN 30.6 uug (23.8-33.4); MEAN CORPUSCULAR HGB CONC 34 g/dL (32.5-36.3); MEAN CORPUSCULAR VOLUME 91.1 fL (73.0-96.2); MONOCYTES # (AUTO) 0.8 K/uL (2.0-10.0); NEUTROPHILS # (AUTO) 10.6 K/uL (1.8-8.9); NEUTROPHILS % (AUTO) 83.3 % (38.5-71.5); PLATELET COUNT (AUTO) 238 K/uL (152-348); RED BLOOD CELL COUNT(AUTO) 3.12 MIL/uL (4.06-5.63); WHITE BLOOD COUNT (AUTO) 12.8 K/uL (3.6-10.2)
[2019-11-14] MEDS: CHOLECALCIFEROL 1,000 UNIT TABLET GT SCH (08:41)
[2019-11-14] MEDS: FOLIC ACID/VITAMIN B COMP W-C TABLET GT SCH (08:41)
[2019-11-14] MEDS: ZINC SULFATE 220 MG CAPSULE GT SCH (08:42)
[2019-11-14] MEDS ORDERED: POTASSIUM PHOSPHATE MM 15 MMOL in IV NORMAL SALINE 250 ML IV ONE (09:15)
[2019-11-14] MEDS: IV D5/ 0.9% NACL 1,000 ML IV PRN (09:57)
--- NOTE | 2019-11-14 10:00 | NUR ---
SEEN BY DR ZAMARRIPA FOR PULMONARY FOLLOW-UP NO NEW ORDERS, DR MONTESINOS FOR CARDIO-REPLACED K2.8 WITH KLOR CON IN ADDITION TO K-PHOS 15 MM IV. HEMODIALYSIS COMPLETED WITH NO COMPLICATION
[2019-11-14] MEDS ORDERED: POTASSIUM CHLORIDE 20 MEQ POWDER PACKET GT ONE (11:15)
[2019-11-14] MEDS: ONDANSETRON 4 MG/2 ML VIAL IV PRN (11:27)
[2019-11-14] MEDS: HYDROCODONE/APAP 5-325MG TABLET GT PRN ×2 (11:27→23:33)
[2019-11-14] MEDS: AMLODIPINE 10 MG TABLET GT SCH (11:28)
[2019-11-14] MEDS: LOSARTAN POTASSIUM 50 MG TABLET GT SCH ×2 (11:29→17:21)
[2019-11-14 11:50] VITALS: BP 186/72
--- NOTE | 2019-11-14 12:41 | NUR ---
CONTINUE CURRENT TX PLAN. OER DR NIETO OK TO START TF AT 20ML/HR VIA GT
[2019-11-14] MEDS: DEXTROSE IV SCH (13:40)
[2019-11-14] MEDS: TRIMETHOPRI IV SCH (13:40)
[2019-11-14] MEDS: SULFAMETHOXAZOL IV SCH (13:40)
[2019-11-14] MEDS ORDERED: VANCOMYCIN IV 1,000 MG in IV DEXTROSE 5% 250 ML IV ONE (14:00)
[2019-11-14] MEDS ORDERED: SULFAMETHOXAZOL/TRIMETHOPRI IV 10 ML in IV DEXTROSE 5% 250 ML IV SCH (14:00)
[2019-11-14] MEDS: NEPRO 1000 ML GT PRN (15:13)
[2019-11-14 16:08] VITALS: BP 183/61
--- NOTE | 2019-11-14 17:53 | NUR ---
PATIENT TOLERATING MEDS AND FEEDING THROUGH THE GT, NO SS OF BLEEDING. SR ON MONITOR, AFEBRILE
--- NOTE | 2019-11-14 20:00 | NUR ---
Received patient awake and oriented X 3. In no acute distress. Denies pain. TELE SR at 78. Trach to vent, sating at 98%. Yakut speaking with very little Spanish. PICC on the right upper arm, patent and intact. IVF running. Left upper arm dialysis access, bruit and thrill present. GT feeding is running at 20 cc/hr. Patient c/o slight bloating. Noted open sacral wound, mepilex in place. Anuric. Flexiseal draining brown liquid stool. Flexiseal bag replaced. DVT in place. Safety initiated. Call light within reach. Will closely monitor.
--- NOTE | 2019-11-14 20:00 | NUR ---
BP was elevated at 179/40 HR 76. Apresoline 100 mg. GT given, BP rechecked 169/24 HR 78. Will closely monitor.
[2019-11-14 20:15] VITALS: BP 179/40
--- NOTE | 2019-11-14 23:34 | NUR ---
Patient c/o generalized pain 09/13. [place] given, will closely monitor.
[2019-11-15] VITALS (7 sets, daily range): BP systolic 154–189; BP diastolic 36–68
[2019-11-15] MEDS: IPRATROPIUM BROMIDE 0.5 MG/2.5 ML NEBU NEB SCH ×4 (01:38→20:09)
[2019-11-15] MEDS: ALBUTEROL SULFATE 2.5 MG/ 0.5 ML NEBU NEB SCH ×4 (01:38→20:09)
--- NOTE | 2019-11-15 05:31 | NUR ---
Patient slept intermittently t/o shift. No acute distress noted. Reported generalized pain, medication given, stated relief. Vital signs stable however, BP is elevated 167/36. Tele SR at 71. PICC line in the LISA remains patent and intact, IVF running. Tolerating GT feeding at 200 cc/hr. Flexiseal draining brown loose stool. Remains anuric. Safety and comfort measures maintained t/o shift. All meds given as ordered. All needs met.
[2019-11-15] MEDS: BLOOD SUGAR DIAGNOSTIC 1 EACH STRIP VI SCH ×4 (05:50→23:47)
[2019-11-15] MEDS: LEVOTHYROXINE SODIUM 25 MCG TABLET GT SCH (06:01)
--- NOTE | 2019-11-15 06:22 | NUR ---
Rechecked BP 154/48. Will continue to monitor.
[2019-11-15 07:08] LABS: BASOPHILS # (AUTO) 0.1 K/uL (0.0-8.0); BASOPHILS % (AUTO) 0.8 % (0.0-2.0); EOSINOPHILS # (AUTO) 0.2 K/uL (0.0-0.7); EOSINOPHILS % (AUTO) 2.5 % (0.0-7.0); HEMATOCRIT 30.1 % (36.7-47.1); HEMOGLOBIN 10.3 g/dL (12.5-16.3); LYMPHOCYTES # (AUTO) 1.1 K/uL (20.0-40.0); LYMPHOCYTES % (AUTO) 11.7 % (20.5-51.5); MEAN CORPUSCULAR HGB CONC 34 g/dL (32.5-36.3); MEAN CORPUSCULAR VOLUME 90.5 fL (73.0-96.2); MONOCYTES # (AUTO) 0.7 K/uL (2.0-10.0); MONOCYTES % (AUTO) 7.8 % (0.0-11.0); NEUTROPHILS # (AUTO) 7.4 K/uL (1.8-8.9); NEUTROPHILS % (AUTO) 77.2 % (38.5-71.5); PLATELET COUNT (AUTO) 250 K/uL (152-348); RED BLOOD CELL COUNT(AUTO) 3.33 MIL/uL (4.06-5.63); WHITE BLOOD COUNT (AUTO) 9.5 K/uL (3.6-10.2)
--- NOTE | 2019-11-15 07:10 | NUR ---
Received patient in bed, awake and responsive. Trach intact and midline connected to ventilator with Settings of AC 20 VT 550 peep +5 FiO2 40%, saturating 100%. No complain of SOB. Afebrile. No complain or discomfort at this time. GT intact and patent, Will turn ON at 10AM. Will continue to monitor.
[2019-11-15 07:36] LABS: CREATININE 3.3 mg/dL (0.6-1.3); MAGNESIUM 2.1 mg/dL (1.8-2.4); PHOSPHOROUS 2.4 mg/dL (2.5-4.9); POTASSIUM 3.1 mmol/L (3.5-5.1)
[2019-11-15] MEDS: SUCRALFATE 1 G/10 ML LIQUID UDC GT SCH ×4 (07:49→20:34)
[2019-11-15] MEDS: FOLIC ACID/VITAMIN B COMP W-C TABLET GT SCH (08:01)
[2019-11-15] MEDS: CHOLECALCIFEROL 1,000 UNIT TABLET GT SCH (08:01)
[2019-11-15] MEDS: SEVELAMER CARBONATE 800 MG POWD.PACK GT SCH (08:01)
[2019-11-15] MEDS: ZINC SULFATE 220 MG CAPSULE GT SCH (08:01)
[2019-11-15] MEDS: AMLODIPINE 10 MG TABLET GT SCH (08:04)
[2019-11-15] MEDS: LOSARTAN POTASSIUM 50 MG TABLET GT SCH ×2 (08:04→16:37)
[2019-11-15] MEDS: PROTEIN SUPPLEMENT (PROSTAT) 30 ML LIQUID PO SCH (08:07)
[2019-11-15] MEDS: hydrALAZINE HCL 50 MG TABLET GT SCH ×3 (09:07→23:16)
[2019-11-15] MEDS ORDERED: POTASSIUM PHOSPHATE MM 15 MMOL in IV NORMAL SALINE 250 ML IV ONE (11:00)
[2019-11-15] MEDS: SULFAMETHOXAZOL IV SCH (14:10)
[2019-11-15] MEDS: TRIMETHOPRI IV SCH (14:10)
[2019-11-15] MEDS: DEXTROSE IV SCH (14:10)
[2019-11-15] MEDS: IV D5/ 0.9% NACL 1,000 ML IV PRN (15:01)
[2019-11-15] MEDS: ACIDOPHILUS/BULGARICUS CHEW TAB GT SCH (16:33)
--- NOTE | 2019-11-15 18:08 | NUR ---
Patient in bed, awake, and responsive, trach tube intact and midline. No signs of distress noted. GT intact and patent, GTF running at 20cc/hr. Patient still noted with GI discomfort. Kept clean and comfortable. All needs attended and met. Will endorse to Oncoming Nurse.
--- NOTE | 2019-11-15 19:40 | NUR ---
Awake during initial rounds, in bed, on mechanical ventilator, tolerating prescribed setting. No s/s of respiratory distress., saturating 96%. Denies any pain/discomforts at this time. GT feeding via Enteral pump. no s/s of aspiration, no gastric residual, tolerating feeding well. Safety measures and fall prevention maintained. Continue care as planned.
[2019-11-15] MEDS: HYDROCODONE/APAP 5-325MG TABLET GT PRN (20:34)
[2019-11-16 00:06] VITALS: BP 150/41
[2019-11-16] MEDS: IPRATROPIUM BROMIDE 0.5 MG/2.5 ML NEBU NEB SCH ×4 (01:20→21:59)
[2019-11-16] MEDS: ALBUTEROL SULFATE 2.5 MG/ 0.5 ML NEBU NEB SCH ×4 (01:20→21:59)
[2019-11-16] MEDS: HYDROCODONE/APAP 5-325MG TABLET GT PRN ×2 (04:41→14:47)
[2019-11-16] MEDS: hydrALAZINE HCL 50 MG TABLET GT SCH ×3 (05:15→22:03)
[2019-11-16] MEDS: LEVOTHYROXINE SODIUM 25 MCG TABLET GT SCH (05:15)
[2019-11-16] MEDS: BLOOD SUGAR DIAGNOSTIC 1 EACH STRIP VI SCH ×3 (05:18→17:24)
[2019-11-16] MEDS: SUCRALFATE 1 G/10 ML LIQUID UDC GT SCH ×4 (05:27→20:11)
--- NOTE | 2019-11-16 06:08 | NUR ---
HD in progress.
--- NOTE | 2019-11-16 06:29 | NUR ---
Shift End Report: VS stable. Medicated twice for complaint of generalized pain. Continuous GT feeding at 20 cc/hour, tolerated well. Maintained fluid restriction d/t renal problem. No s/s of hypo/hyperglycemia. Still had episode of loose/watery BM with some mucus and red bright blood on it possible from the sacral multiple wounds. Good enrique-care/skin care rendered. Swollen scrotal area noted, elevated with towel. Tolerating HD right now. Continue current plan of care. Remain afebrile.
[2019-11-16 06:50] LABS: BASOPHILS # (AUTO) 0.1 K/uL (0.0-8.0); BASOPHILS % (AUTO) 1.1 % (0.0-2.0); EOSINOPHILS # (AUTO) 0.3 K/uL (0.0-0.7); EOSINOPHILS % (AUTO) 3.5 % (0.0-7.0); HEMATOCRIT 30.5 % (36.7-47.1); HEMOGLOBIN 10.4 g/dL (12.5-16.3); LYMPHOCYTES # (AUTO) 1.3 K/uL (20.0-40.0); LYMPHOCYTES % (AUTO) 14.9 % (20.5-51.5); MEAN CORPUSCULAR HEMOGLOBIN 31.1 uug (23.8-33.4); MEAN CORPUSCULAR HGB CONC 34 g/dL (32.5-36.3); MEAN CORPUSCULAR VOLUME 91.1 fL (73.0-96.2); MONOCYTES # (AUTO) 0.8 K/uL (2.0-10.0); MONOCYTES % (AUTO) 8.9 % (0.0-11.0); NEUTROPHILS # (AUTO) 6.1 K/uL (1.8-8.9); NEUTROPHILS % (AUTO) 71.6 % (38.5-71.5); PLATELET COUNT (AUTO) 283 K/uL (152-348); RED BLOOD CELL COUNT(AUTO) 3.35 MIL/uL (4.06-5.63); WHITE BLOOD COUNT (AUTO) 8.5 K/uL (3.6-10.2)
--- NOTE | 2019-11-16 07:00 | NUR ---
RECEIVED WITH ON-GOING HEMODIALYSI AT BEDSIDE, AWAKE ALERT AND RESPONSIVE, ABLE TO VERBALIZE NEEDS. SR ON MONITOR. NO SS OF PAIN OR DISTRESS WITH VENT SETTINGS AT 20-550-30-5 SATURATING 100%
[2019-11-16 07:06] LABS: ALANINE AMINOTRANSFERASE < 6 U/L (16-63); ALKALINE PHOSPHATASE 109 U/L (50-136); ASPARTATE AMINOTRANSFERASE 18 U/L (15-37); BILIRUBIN,TOTAL 0.3 mg/dL (0.2-1.0); CARBON DIOXIDE 26 mmol/L (21-32); CHLORIDE 108 mmol/L (98-107); CREATININE 3.9 mg/dL (0.6-1.3); GLUCOSE 123 mg/dL (74-106); MAGNESIUM 2.2 mg/dL (1.8-2.4); PHOSPHOROUS 3.7 mg/dL (2.5-4.9); POTASSIUM 2.9 mmol/L (3.5-5.1); TOTAL PROTEIN, SERUM 6.6 g/dL (6.4-8.2); UREA NITROGEN, BLOOD 44 mg/dL (7-18)
--- NOTE | 2019-11-16 07:40 | NUR ---
Pt is on dialysis. No SOB noted. Pt vital sign stable. will cont to monitor.
[2019-11-16] MEDS ORDERED: POTASSIUM CHLORIDE 20 MEQ POWDER PACKET GT ONE (08:30)
[2019-11-16] MEDS: CHOLECALCIFEROL 1,000 UNIT TABLET GT SCH (10:14)
[2019-11-16] MEDS: ACIDOPHILUS/BULGARICUS CHEW TAB GT SCH ×2 (10:14→17:24)
[2019-11-16] MEDS: LOSARTAN POTASSIUM 50 MG TABLET GT SCH ×2 (10:15→17:24)
[2019-11-16] MEDS: FOLIC ACID/VITAMIN B COMP W-C TABLET GT SCH (10:15)
[2019-11-16] MEDS: ZINC SULFATE 220 MG CAPSULE GT SCH (10:15)
[2019-11-16] MEDS: PROTEIN SUPPLEMENT (PROSTAT) 30 ML LIQUID PO SCH (10:16)
[2019-11-16] MEDS: AMLODIPINE 10 MG TABLET GT SCH (10:16)
[2019-11-16 11:30] VITALS: BP 153/57
[2019-11-16] MEDS: SULFAMETHOXAZOL IV SCH (14:45)
[2019-11-16] MEDS: DEXTROSE IV SCH (14:45)
[2019-11-16] MEDS: TRIMETHOPRI IV SCH (14:45)
[2019-11-16] MEDS ORDERED: EPOETIN ALFA 10,000 UNITS/ML VIAL SQ SCH (15:00)
[2019-11-16] MEDS: NEPRO 1000 ML GT PRN (15:12)
[2019-11-16 15:14] VITALS: BP 178/71
--- NOTE | 2019-11-16 15:57 | NUR ---
SEEN BY DR ZAMARRIPA, NO NEW ORDERS. SEE NOTES
--- NOTE | 2019-11-16 17:13 | NUR ---
DR MONTESINOS IN MADE AWARE OF HR 37-50 IN AND OUT JUNCTIONAL, ASYMPTOMATIC. ALSO MADE AWARE ABOUT FAMILY WANTING TO TAKE PATIENT HOME. PLS SEE NOTES
[2019-11-16] MEDS: IV D5/ 0.9% NACL 1,000 ML IV PRN (17:48)
[2019-11-16 20:00] VITALS: BP 156/38
--- NOTE | 2019-11-16 20:00 | NUR ---
Received patient lying in bed. Asleep but easily arouse to verbal stimuli. AOx4. Non-verbal but able to make needs known. HOB elevated. Denies any SOB or pain at this time. Gt feeding ongoing. PICC line on right upper arm intact and patent. IVF infusing. NSR on tele at 75/min. Trach with vent on place. O2 sat at 99%. Continue to monitor.
[2019-11-16 20:15] VITALS: BP 126/38
[2019-11-17] VITALS (8 sets, daily range): BP systolic 130–170; BP diastolic 35–93
[2019-11-17] MEDS: BLOOD SUGAR DIAGNOSTIC 1 EACH STRIP VI SCH ×4 (00:35→17:40)
[2019-11-17] MEDS: IPRATROPIUM BROMIDE 0.5 MG/2.5 ML NEBU NEB SCH ×4 (01:30→21:07)
[2019-11-17] MEDS: ALBUTEROL SULFATE 2.5 MG/ 0.5 ML NEBU NEB SCH ×4 (01:30→21:07)
[2019-11-17] MEDS: HYDROCODONE/APAP 5-325MG TABLET GT PRN ×3 (02:45→20:13)
--- NOTE | 2019-11-17 05:18 | NUR ---
PT ON CONT MEJIA VENT WITH SHILEY #[address], WITH SAME CURRENT VENT SETTINGS, PT DOES ASSIST,AT TIMES, CHECK CUFF, CHANGE HME, DOING WELL, SUCTION SLIGHT PALE YELL TINGE SECRETIONS, , NEB INLINE X 2 , ALL VENT ALARMS GOOD, NO VENT CHANGES MADE, PT AWAKE A LOT DOING NIGHT, NO SIGNS OF RESP. DISTRESS. Grace OMALLEYP Addendum: 11/17/19 at 0521 by VICKY THURMAN RT Amended: Links added.
--- NOTE | 2019-11-17 06:11 | NUR ---
AOx4. Non-verbal but able to make needs known. HOB kept elevated. Denies any SOB. Worthing given for complain of headache and effective. Patient able to suction secretions PRN and has small amount of thick mucus. GT feeding and flushing well tolerated. PICC line on right upper arm intact and patent. IVF infusing. NSR on tele at 77/min. Needs attended to and met. Turned and reposition q2HR. Safety measure maintained and call miranda within reach.
[2019-11-17] MEDS: LEVOTHYROXINE SODIUM 25 MCG TABLET GT SCH (06:30)
[2019-11-17] MEDS: SUCRALFATE 1 G/10 ML LIQUID UDC GT SCH ×4 (06:30→22:27)
[2019-11-17] MEDS: hydrALAZINE HCL 50 MG TABLET GT SCH ×3 (06:31→22:28)
--- NOTE | 2019-11-17 07:30 | NUR ---
STARTED ON C-PAP 11/03 SATURATING 100%. WILL FOLLOW-UP ABG ORDERED
[2019-11-17 08:53] LABS: ABG BASE EXCESS 1.6 mmol/L; ABG HCO3 25.4 mmol/L; ABG PCO2 36.9 mmHg (35.0-45.0); ABG PH 7.455 (7.350-7.450); ABG PO2 149.6 mmHg (75.0-100.0); ABG SITE RIGHT RADIAL; ABG TOTAL HEMOGLOBIN 10.7 G/dL (13.5-18.0); COHb 0.3 % (0.5-1.5); CPAP,BG 8 cmH20; MetHb 0.6 % (0.0-1.5); O2Hb 98.1 % (94.0-97.0); VENT MODE CPAP
--- NOTE | 2019-11-17 09:00 | NUR ---
ABG DONE WILL GIVE RESULTS TO JACOBY ZAMARRIPA . PATIENT VERY COMFORTABLE WITH CURRENT SETTINGS.
[2019-11-17] MEDS: ACIDOPHILUS/BULGARICUS CHEW TAB GT SCH ×2 (09:17→17:40)
[2019-11-17] MEDS: CHOLECALCIFEROL 1,000 UNIT TABLET GT SCH (09:17)
[2019-11-17] MEDS: ZINC SULFATE 220 MG CAPSULE GT SCH (09:17)
[2019-11-17] MEDS: AMLODIPINE 10 MG TABLET GT SCH (09:18)
[2019-11-17] MEDS: FOLIC ACID/VITAMIN B COMP W-C TABLET GT SCH (09:18)
[2019-11-17] MEDS: LOSARTAN POTASSIUM 50 MG TABLET GT SCH ×2 (09:19→17:00)
[2019-11-17] MEDS: PROTEIN SUPPLEMENT (PROSTAT) 30 ML LIQUID PO SCH (09:22)
--- NOTE | 2019-11-17 10:00 | NUR ---
STARTED FEEDING TOLERATED VIA GT, AM CARE AND WOUND CARE DONE. MEDICATED X1 WITH NORCO FOR GENERALIZED PAIN WITH GOOD RELIEF. CONTINUE WITH C-PAP TOLERATED PER DR ZAMARRIPA
[2019-11-17] MEDS: NEPRO 1000 ML GT PRN (10:46)
--- NOTE | 2019-11-17 12:00 | NUR ---
SEEN BY DR ZAMARRIPA AND DR MONTESINOS FOR FOLLOW-UP SEE NOTES
[2019-11-17] MEDS: TRIMETHOPRI IV SCH (14:07)
[2019-11-17] MEDS: DEXTROSE IV SCH (14:07)
[2019-11-17] MEDS: SULFAMETHOXAZOL IV SCH (14:07)
[2019-11-17] MEDS: IV D5/ 0.9% NACL 1,000 ML IV PRN (14:32)
--- NOTE | 2019-11-17 17:10 | NUR ---
tolerating c-pap at 8/30 saturating 100%. no ss of distress. PM care done. tolerating feeding at 20mls/hr
--- NOTE | 2019-11-17 17:18 | NUR ---
PLAN DC TO SNF IN AM IF REMAINS STABLE. SEE DR NIETO'S NOTES
[2019-11-18] MEDS: BLOOD SUGAR DIAGNOSTIC 1 EACH STRIP VI SCH ×2 (00:29→05:29)
[2019-11-18 00:36] VITALS: BP 144/38
[2019-11-18] MEDS: ALBUTEROL SULFATE 2.5 MG/ 0.5 ML NEBU NEB SCH ×3 (00:45→15:16)
[2019-11-18] MEDS: IPRATROPIUM BROMIDE 0.5 MG/2.5 ML NEBU NEB SCH ×3 (00:45→15:16)
[2019-11-18] MEDS: ONDANSETRON 4 MG/2 ML VIAL IV PRN ×3 (02:54→14:05)
[2019-11-18] MEDS: hydrALAZINE HCL 50 MG TABLET GT SCH ×2 (05:29→14:00)
[2019-11-18 05:31] VITALS: BP 108/62
[2019-11-18] MEDS: LEVOTHYROXINE SODIUM 25 MCG TABLET GT SCH (06:16)
--- NOTE | 2019-11-18 06:17 | NUR ---
Pt rested well in between care; no distress; oral trache and enrique care done; per RT pt tolerated CPAP overnight and now on P MIST; needs attended; BM x1 incontinence care done; nauseous earlier; zofran given IVP.
--- NOTE | 2019-11-18 07:32 | NUR ---
Pt received on cool aerosol, 30%, SpO2 100%.. Tolerating well.. Post ABG, lowered FiO2 to 28%.. Secretions, moderate amount, thick, yellow..
[2019-11-18 08:00] VITALS: BP 159/59
--- NOTE | 2019-11-18 08:00 | NUR ---
Report received.Pt remains awake,alert.Trach Shiley #8 intact,patent.No SOB noted.Seen,examined by .
[2019-11-18 08:44] LABS: ABG BASE EXCESS -0.1 mmol/L; ABG HCO3 24.3 mmol/L; ABG PCO2 38.7 mmHg (35.0-45.0); ABG PH 7.416 (7.350-7.450); ABG PO2 135.6 mmHg (75.0-100.0); ABG SITE RIGHT RADIAL; ABG TOTAL HEMOGLOBIN 10.9 G/dL (13.5-18.0); COHb 0.7 % (0.5-1.5); MetHb 0.8 % (0.0-1.5); O2Hb 97.2 % (94.0-97.0); VENT MODE T-Piece- cool aerosol 30%
[2019-11-18] MEDS: CHOLECALCIFEROL 1,000 UNIT TABLET GT SCH (09:09)
[2019-11-18] MEDS: FOLIC ACID/VITAMIN B COMP W-C TABLET GT SCH (09:09)
[2019-11-18] MEDS: SUCRALFATE 1 G/10 ML LIQUID UDC GT SCH ×3 (09:09→16:25)
[2019-11-18] MEDS: ZINC SULFATE 220 MG CAPSULE GT SCH (09:09)
[2019-11-18] MEDS: ACIDOPHILUS/BULGARICUS CHEW TAB GT SCH ×2 (09:09→16:26)
[2019-11-18] MEDS: AMLODIPINE 10 MG TABLET GT SCH (09:10)
[2019-11-18] MEDS: LOSARTAN POTASSIUM 50 MG TABLET GT SCH ×2 (09:10→16:26)
[2019-11-18] MEDS: PROTEIN SUPPLEMENT (PROSTAT) 30 ML LIQUID PO SCH (09:11)
[2019-11-18] MEDS ORDERED: SULF10VI2 IV (14:30)
[2019-11-18] MEDS ORDERED: Nepro GT (14:30)
[2019-11-18] MEDS ORDERED: SUCR1ORA GT (14:30)
[2019-11-18] MEDS ORDERED: PROT30LI PO (14:30)
[2019-11-18] MEDS ORDERED: SIME80TA45 GT (14:30)
[2019-11-18] MEDS ORDERED: MENT71OI TOP (14:30)
[2019-11-18] MEDS ORDERED: ACID1TAB4 GT (14:30)
[2019-11-18] MEDS ORDERED: MINOXIDIL 2.5 MG TABLET GT ONE (14:32)
[2019-11-18] MEDS: TRIMETHOPRI IV SCH (15:23)
[2019-11-18] MEDS: SULFAMETHOXAZOL IV SCH (15:23)
[2019-11-18] MEDS: DEXTROSE IV SCH (15:23)
[2019-11-18 15:55] VITALS: BP 159/49
[2019-11-18 16:26] VITALS: BP 159/68
[2019-11-18] MEDS: HYDROCODONE/APAP 5-325MG TABLET GT PRN (16:27)
--- NOTE | 2019-11-18 17:39 | NUR ---
Called to [facility] .Report was given to IBRAHIMA Serrano
--- NOTE | 2019-11-18 19:21 | NUR ---
Pt was discharged to [facility] via ambulance.
== END 2019-11-18 19:25 | DRG 870 ==
LOC: ER 14:42 → TELE-TD3 18:23 → ICUOV2 11-11 22:30 → CCU 11-11 22:31 → MEDSURG3 11-12 16:30 → TELE-TD3 11-12 16:32
PROVIDERS: ADMIT Family Medicine; ATTEND Internal Medicine
PROC: 30233N1 Transfusion of Nonautologous Red Blood Cells into Peripheral Vein, Percutaneous Approach (ICD-10-PCS; principal; 2019-11-07)
PROC: 5A1955Z Respiratory Ventilation, Greater than 96 Consecutive Hours (ICD-10-PCS; 2019-11-07)
PROC: 5A1D70Z Performance of Urinary Filtration, Intermittent, Less than 6 Hours Per Day (ICD-10-PCS; 2019-11-08)
DX: A41.9 Sepsis, unspecified organism (principal); R53.2 Functional quadriplegia; N18.6 End stage renal disease; E43 Unspecified severe protein-calorie malnutrition; J96.22 Acute and chronic respiratory failure with hypercapnia; J96.21 Acute and chronic respiratory failure with hypoxia; J69.0 Pneumonitis due to inhalation of food and vomit; I50.33 Acute on chronic diastolic (congestive) heart failure; G92 Toxic encephalopathy; K92.2 Gastrointestinal hemorrhage, unspecified; D62 Acute posthemorrhagic anemia; I13.2 Hypertensive heart and chronic kidney disease with heart failure and with stage 5 chronic kidney disease, or end stage renal disease; E87.1 Hypo-osmolality and hyponatremia; D68.69 Other thrombophilia; Z99.11 Dependence on respirator [ventilator] status; D63.1 Anemia in chronic kidney disease; Z99.2 Dependence on renal dialysis; Z86.19 Personal history of other infectious and parasitic diseases; E86.1 Hypovolemia; E87.6 Hypokalemia; E11.22 Type 2 diabetes mellitus with diabetic chronic kidney disease; E03.9 Hypothyroidism, unspecified; E88.09 Other disorders of plasma-protein metabolism, not elsewhere classified; R13.10 Dysphagia, unspecified; N25.0 Renal osteodystrophy; Z68.22 Body mass index [BMI] 22.0-22.9, adult; Z86.74 Personal history of sudden cardiac arrest; R19.5 Other fecal abnormalities; I25.10 Atherosclerotic heart disease of native coronary artery without angina pectoris; I35.0 Nonrheumatic aortic (valve) stenosis; Z87.891 Personal history of nicotine dependence; Z79.4 Long term (current) use of insulin; Z93.1 Gastrostomy status; I25.2 Old myocardial infarction
CPT/HCPCS: 36415; 36600; 70030-TC; 71045; 82803; 83735; 84100; 85018; 85025; 85730; 86140; 86704; 86706; 86850; 86900; 86901; 86920; 87040; 87070; 87077; 87350; 90937; 93005; 94002; 94003; 94640; A4217; A4663; G0378; J0692; J0885; J1815; J2405; J3370; J3480; J3490; J3590; J7030; J7040; J7042; J7050; J7060; P9016-BL; P9021

== ENCOUNTER 2019-12-05 15:21 | Inpatient (IN) | payer MEDICARE, OTHER ==
[~2019-12-05] VITALS: Ht 160 cm; Wt 69.7 kg
[~2019-12-05 15:21] MED LIST changes: +ACID1TAB4 GT; -Blood Sugar Diagnostic VI; +EPOE1VIA12 SQ; -INSU100V28 SQ; +IPRA3AMP22 HHN; +LEVO25TA9 GT; +MENT71OI TOP; +Nepro GT; +ONDA4TAB5 GT; -PROT30LI GT; +PROT30LI PO; +SIME80TA45 GT; +SULF10VI2 IV
[2019-12-05 15:59] LABS: EOSINOPHILS # (AUTO) 0.1 K/uL (0.0-0.7); LYMPHOCYTES # (AUTO) 0.8 K/uL (20.0-40.0); LYMPHOCYTES % (AUTO) 15.2 % (20.5-51.5); MEAN CORPUSCULAR HEMOGLOBIN 33.1 uug (23.8-33.4); MONOCYTES # (AUTO) 0.5 K/uL (2.0-10.0)
[2019-12-05 16:05] LABS: BASOPHILS % (AUTO) 0.5 % (0.0-2.0); EOSINOPHILS % (AUTO) 1.8 % (0.0-7.0); MEAN CORPUSCULAR HGB CONC 34 g/dL (32.5-36.3); MONOCYTES % (AUTO) 10.4 % (0.0-11.0); NEUTROPHILS # (AUTO) 3.8 K/uL (1.8-8.9); NEUTROPHILS % (AUTO) 72.1 % (38.5-71.5); PLATELET COUNT (AUTO) 200 K/uL (152-348); WHITE BLOOD COUNT (AUTO) 5.2 K/uL (3.6-10.2)
[2019-12-05 16:06] LABS: RED BLOOD CELL COUNT(AUTO) 1.64 MIL/uL (4.06-5.63)
[2019-12-05 16:10] LABS: HEMATOCRIT 16.1 % (36.7-47.1); HEMOGLOBIN 5.4 g/dL (12.5-16.3)
[2019-12-05] MEDS ORDERED: ACETAMINOPHEN ES 500 MG TABLET GT ONE (16:15)
[2019-12-05] MEDS ORDERED: ACETAMINOPHEN 650 MG/20.3 ML LIQUID UDC ONE ×2 (16:15)
[2019-12-05] MEDS ORDERED: PIPERACILLIN SODIUM/TAZOBACTAM 3.375 G in IV DEXTROSE 5% 50 ML IV ONE (16:15)
[2019-12-05 16:16] LABS: CREATININE 2.8 mg/dL (0.6-1.3); POTASSIUM 3.7 mmol/L (3.5-5.1)
[2019-12-05] MEDS ORDERED: PIPERACILLIN/TAZOBACTAM/D5W 50 ML IV ONE (16:18)
[2019-12-05 16:21] LABS: BILIRUBIN,DIRECT 0.3 mg/dL (0.0-0.2); TOTAL PROTEIN, SERUM 6.4 g/dL (6.4-8.2)
[2019-12-05 16:25] LABS: MAGNESIUM 2.3 mg/dL (1.8-2.4); PHOSPHOROUS 2.7 mg/dL (2.5-4.9)
[2019-12-05] MEDS ORDERED: PANTOPRAZOLE SODIUM IV 80 MG in IV DEXTROSE 5% 500 ML IV ONE (16:30)
[2019-12-05] MEDS ORDERED: PANTOPRAZOLE SODIUM 40 MG VIAL IV ONE (16:30)
--- NOTE | 2019-12-05 16:35 | NUR ---
Per pt to be admitted to tele, [facility] paged.
[2019-12-05 16:40] LABS: THYROID STIMULATING HORMONE 9.67 mIU/mL (0.358-3.740)
--- NOTE | 2019-12-05 16:40 | NUR ---
Tele floor called for bed assignment.
[2019-12-05] MEDS ORDERED: levoFLOXacin 750 MG/D5W 150 ML PIGGYBACK IV ONE (16:45)
[2019-12-05] MEDS ORDERED: VANCOMYCIN IV 1,000 MG in IV DEXTROSE 5% 250 ML IV ONE (16:45)
[2019-12-05] MEDS ORDERED: levoFLOXacin 750MG/D5W 150 ML IV ONE (16:46)
[2019-12-05] MEDS ORDERED: VANCOMYCIN IV 200 ML ONE (16:46)
[2019-12-05] MEDS ORDERED: AMIN887L GT (16:52)
[2019-12-05] MEDS ORDERED: ALPR0.5T GT (16:52)
[2019-12-05 17:03] LABS: *OCCULT BLOOD STOOL NEGATIVE (NEGATIVE)
[2019-12-05] MEDS ORDERED: PANTOPRAZOLE SODIUM IV 40 MG in IV DEXTROSE 5% 100 ML IV SCH (17:45)
[2019-12-05] MEDS ORDERED: ACETAMINOPHEN 325 MG SUPP RC ONE (17:45)
[2019-12-05 17:47] LABS: EOSINOPHILS % (MANUAL) 2 % (0-8); LYMPHOCYTES % (MANUAL) 12 % (20-40); MONOCYTES % (MANUAL) 15 % (2-10); NEUTROPHILS % (MANUAL) 71 % (42-75)
[2019-12-05] MEDS ORDERED: DEXTROSE 50% 50 ML DISP.SYRIN IV PRN (18:15)
[2019-12-05] MEDS ORDERED: INSULIN REGULAR, HUMAN 300 UNIT/3 ML VIAL SQ PRN (18:15)
[2019-12-05] MEDS ORDERED: ONDANSETRON HCL 4 MG TABLET GT PRN (18:30)
[2019-12-05] MEDS ORDERED: SIMETHICONE 80 MG TAB.CHEW GT PRN (18:30)
[2019-12-05 18:36] VITALS: BP 204/50
[2019-12-05 18:45] VITALS: BP 163/37
--- NOTE | 2019-12-05 19:20 | NUR ---
Pt in bed awake. Tajik speaking. Came here for generalized weakness with Hgb of 5.4. Will transfuse 3 units of PRBC. Denies SOB/chest pain. Patient on trach with 4L of O2. Gtube intact and patent. Pt is noted with L. lateral ft, Medial buttocks and sacral and L hand full thickness loss. LISA midline and RA IV intact and patent. Pt is on isolation, had a history of Covid. PCR still pending. Safety measures in place. Call light within reach. Will continue with the plan of care.
[2019-12-05] MEDS: IPRATROPIUM BROMIDE 0.5 MG/2.5 ML NEBU NEB SCH (19:30)
[2019-12-05] MEDS: ALBUTEROL SULFATE 2.5 MG/ 0.5 ML NEBU NEB SCH (19:30)
[2019-12-05 20:24] VITALS: BP 136/70
--- NOTE | 2019-12-05 20:38 | NUR ---
Patient will have dialysis tomorrow, nurse will just give 1 unit of PRBC tonight, 2 units will be transfused by dialysis nurse. Charge nurse Apurva and Dr. Pulido both are aware.
[2019-12-05] MEDS: MINOXIDIL 2.5 MG TABLET GT SCH (20:49)
[2019-12-05] MEDS: PANTOPRAZOLE SODIUM 40 MG VIAL IV SCH (20:49)
[2019-12-05] MEDS: SUCRALFATE 1 G/10 ML LIQUID UDC GT SCH (20:49)
[2019-12-05] MEDS: SULFAMETHOXAZOL/TRIMETHOPRI IV 15 ML in IV DEXTROSE 5% 250 ML IV SCH (20:50)
[2019-12-05] MEDS: BLOOD SUGAR DIAGNOSTIC 1 EACH STRIP VI SCH (23:38)
[2019-12-06] VITALS (16 sets, daily range): BP systolic 124–179; BP diastolic 35–54
--- NOTE | 2019-12-06 00:10 | NUR ---
Pt is currently getting blood transfusion. V/S stable. will monitor
[2019-12-06] MEDS: ALPRAZOLAM 0.5 MG TABLET GT PRN (00:14)
[2019-12-06] MEDS: ACETAMINOPHEN 650 MG/20.3 ML LIQUID UDC GT PRN ×3 (00:14→17:16)
[2019-12-06] MEDS: IPRATROPIUM BROMIDE 0.5 MG/2.5 ML NEBU NEB SCH ×4 (01:25→19:46)
[2019-12-06] MEDS: ALBUTEROL SULFATE 2.5 MG/ 0.5 ML NEBU NEB SCH ×4 (01:25→19:47)
[2019-12-06] MEDS: MINOXIDIL 2.5 MG TABLET GT SCH ×3 (02:30→18:19)
--- NOTE | 2019-12-06 02:49 | NUR ---
Pt's blood pressure is 172/42. Nanette Patiño NP aware. No new orders. Will continue to monitor.
[2019-12-06] MEDS: LEVOTHYROXINE SODIUM 50 MCG TABLET GT SCH (06:00)
[2019-12-06] MEDS: BLOOD SUGAR DIAGNOSTIC 1 EACH STRIP VI SCH ×4 (06:00→23:46)
[2019-12-06] MEDS: NEPRO 1000 ML GT PRN (06:01)
[2019-12-06] MEDS: SUCRALFATE 1 G/10 ML LIQUID UDC GT SCH ×4 (06:30→20:21)
--- NOTE | 2019-12-06 06:47 | NUR ---
Patient slept intermittently through the night. Pt has no s/s of acute distress. Pt tolerated blood transfusion, V/S stable. Gtube intact with Nepro running at 20cc. Comfort care and needs attended. Repositioned for comfort. Incontinence care provided. Safety measures in place. Call light within reach. Will endorse to the oncoming nurse accordingly.
--- NOTE | 2019-12-06 07:25 | NUR ---
Received report from overnight associate nurse, patient in bed on back, with trach to 4L oxygen. Sinus rhythm on the monitor, continuous pulse ox reading 100%. Suction equipment set up and tubing attached. Scd's placed on patient with dvt pump. Midline to right upper arm. No distress noted at this time, and diaper removed to reveal soft brown stool on open wound, mepilex applied.
[2019-12-06] MEDS ORDERED: Medication Not On Formulary EA (Protein Supplement (Prosource) 30 ML) PO SCH (08:00)
[2019-12-06 08:54] LABS: CREATININE 3.2 mg/dL (0.6-1.3); POTASSIUM 3.8 mmol/L (3.5-5.1)
[2019-12-06 09:00] LABS: MAGNESIUM 2.3 mg/dL (1.8-2.4); PHOSPHOROUS 3.2 mg/dL (2.5-4.9); TOTAL PROTEIN, SERUM 6.3 g/dL (6.4-8.2)
[2019-12-06] MEDS: ZINC SULFATE 220 MG CAPSULE GT SCH (09:03)
[2019-12-06] MEDS: FOLIC ACID/VITAMIN B COMP W-C TABLET GT SCH (09:03)
[2019-12-06] MEDS: CHOLECALCIFEROL 1,000 UNIT TABLET GT SCH (09:03)
[2019-12-06] MEDS: PANTOPRAZOLE SODIUM 40 MG VIAL IV SCH ×2 (09:03→20:21)
[2019-12-06] MEDS: ACIDOPHILUS/BULGARICUS CHEW TAB GT SCH ×2 (09:04→17:16)
[2019-12-06] MEDS: LOSARTAN POTASSIUM 50 MG TABLET GT SCH ×2 (09:04→17:16)
[2019-12-06] MEDS: AMLODIPINE 10 MG TABLET GT SCH (09:05)
[2019-12-06] MEDS: SEVELAMER CARBONATE 800 MG POWD.PACK GT SCH ×3 (09:05→17:17)
[2019-12-06] MEDS: PROTEIN SUPPLEMENT (PROSTAT) 30 ML LIQUID GT SCH (09:05)
[2019-12-06] MEDS: hydrALAZINE HCL 50 MG TABLET PO SCH ×3 (09:07→21:44)
[2019-12-06] MEDS: SULFAMETHOXAZOL/TRIMETHOPRI IV 15 ML in IV DEXTROSE 5% 250 ML IV SCH ×2 (09:14→20:24)
[2019-12-06 09:19] LABS: BASOPHILS # (AUTO) 0.1 K/uL (0.0-8.0); BASOPHILS % (AUTO) 0.8 % (0.0-2.0); EOSINOPHILS # (AUTO) 0.3 K/uL (0.0-0.7); EOSINOPHILS % (AUTO) 4.2 % (0.0-7.0); LYMPHOCYTES # (AUTO) 1.2 K/uL (20.0-40.0); LYMPHOCYTES % (AUTO) 16.5 % (20.5-51.5); MEAN CORPUSCULAR HGB CONC 35 g/dL (32.5-36.3); MEAN CORPUSCULAR VOLUME 94.7 fL (73.0-96.2); MONOCYTES # (AUTO) 0.7 K/uL (2.0-10.0); MONOCYTES % (AUTO) 9.7 % (0.0-11.0); NEUTROPHILS # (AUTO) 4.9 K/uL (1.8-8.9); NEUTROPHILS % (AUTO) 68.8 % (38.5-71.5); PLATELET COUNT (AUTO) 187 K/uL (152-348); WHITE BLOOD COUNT (AUTO) 7.1 K/uL (3.6-10.2)
[2019-12-06 09:31] LABS: RED BLOOD CELL COUNT(AUTO) 2.03 MIL/uL (4.06-5.63)
[2019-12-06 09:32] LABS: HEMATOCRIT 19.3 % (36.7-47.1); HEMOGLOBIN 6.7 g/dL (12.5-16.3)
[2019-12-06 09:42] LABS: THYROID STIMULATING HORMONE 11.121 mIU/mL (0.358-3.740)
--- NOTE | 2019-12-06 11:06 | NUR ---
WOUND CARE CONSULT: REVIEWED CHART, NURSING DOCUMENTATION AND PHOTOS WHICH INDICATE SACRAL SCARRING WITH ULCER TO SACRUM EXTENDING TO BUTTOCKS AND LEFT FOOT DEEP TISSUE INJURY, PRESENT ON ADMISSION. RECOMMEND SURGICAL AND DPM CONSULTS. DR KUMAR AND DR GILL NOTIFIED OF CONSULT REQUESTS. FIRST STEP LOW AIRLOSS MATTRESS IS ON ORDER. RECOMMENDATIONS MADE FOR SKIN PROTECTION. DISCUSSED WITH NURSING STAFF. MD IN AGREEMENT WITH PLAN OF CARE.
[2019-12-06 13:48] LABS: EOSINOPHILS % (MANUAL) 3 % (0-8); LYMPHOCYTES % (MANUAL) 15 % (20-40); MONOCYTES % (MANUAL) 6 % (2-10); NEUTROPHILS % (MANUAL) 76 % (42-75)
--- NOTE | 2019-12-06 14:19 | NUR ---
patient receiving dialysis at this time, no hydralizine given.
--- NOTE | 2019-12-06 15:28 | NUR ---
Blood completed with dialysis and no complications.
--- NOTE | 2019-12-06 16:09 | NUR ---
2nd unit of blood complete , no adverse reactions noted.
[2019-12-06] MEDS ORDERED: METOCLOPRAMIDE HCL 10 MG/2 ML VIAL IV PRN (18:45)
--- NOTE | 2019-12-06 18:57 | NUR ---
patient continues to be on trach with 4L oxygen and t-piece. Sinus rhythm on the monitor, left upper arm shunt with dialysis today removing 3500ml. G-tube in place with nepro 20cc running and patient tolerating it. Received a call from Dr. Foote that patient is to be prepped at 8pm for EGD and colonoscpy tomorrow and tube feeding stopped before prep.
[2019-12-06] MEDS ORDERED: GOLYTELY 4000 ML BOTTLE PO ONE (19:00)
[2019-12-06] MEDS ORDERED: IV D5W-0.45% NS 1000 ML BAG IV PRN (19:45)
--- NOTE | 2019-12-06 20:00 | NUR ---
RECEIVED PT ALERT & ORIENTED X3, UNDERSTAND SPANISH WELL, OTHERWISE SPEAKS NEPALI. ON 02 @ 4L T-PIECE W/ O2 SAT OF 100%. OFF TUBE FDG @ 1930 WHEN GOLYTELY SOLUTION STARTED VIA G-TUBE. MIDLINE INTACT & PATENT ON LISA. HEP LOCK INTACT ON LISA. NOT IN ANY DISTRESS.
[2019-12-06] MEDS: THERAHONEY GEL 1.5 OZ TUBE TOP SCH (20:15)
[2019-12-06] MEDS: IV D5 1/2 NS 1000 ML 1,000 ML IV PRN (20:27)
--- NOTE | 2019-12-06 20:27 | NUR ---
STARTED ON IVF D51/2 NS @ 75CC/HR VIA MIDLINE ON LISA.
--- NOTE | 2019-12-07 | NUR ---
ZOË DONE BS-92. DOMINGA DALE IN PROGRESS VIA G-TUBE.
[2019-12-07 00:09] VITALS: BP 129/32
[2019-12-07] MEDS: IPRATROPIUM BROMIDE 0.5 MG/2.5 ML NEBU NEB SCH ×4 (01:18→19:28)
[2019-12-07] MEDS: ALBUTEROL SULFATE 2.5 MG/ 0.5 ML NEBU NEB SCH ×4 (01:19→19:28)
[2019-12-07] MEDS: MINOXIDIL 2.5 MG TABLET GT SCH ×3 (02:04→18:40)
[2019-12-07] MEDS: ACETAMINOPHEN 650 MG/20.3 ML LIQUID UDC GT PRN ×2 (02:14→20:54)
[2019-12-07 04:15] VITALS: BP 149/37
--- NOTE | 2019-12-07 05:30 | NUR ---
LARGE AMT OF BOWEL MOVEMENT AFTER THE GOLYTELY. BEDBATH GIVEN.
[2019-12-07] MEDS: hydrALAZINE HCL 50 MG TABLET PO SCH ×3 (05:32→21:07)
[2019-12-07] MEDS: BLOOD SUGAR DIAGNOSTIC 1 EACH STRIP VI SCH ×3 (05:50→17:45)
[2019-12-07] MEDS ORDERED: SORBITOL 70% SOLUTION 30 ML UDC PO ONE (06:00)
[2019-12-07 06:07] LABS: BASOPHILS # (AUTO) 0.1 K/uL (0.0-8.0); BASOPHILS % (AUTO) 1.4 % (0.0-2.0); EOSINOPHILS # (AUTO) 0.1 K/uL (0.0-0.7); LYMPHOCYTES # (AUTO) 0.8 K/uL (20.0-40.0); LYMPHOCYTES % (AUTO) 12.4 % (20.5-51.5); MEAN CORPUSCULAR HEMOGLOBIN 32.7 uug (23.8-33.4); MEAN CORPUSCULAR HGB CONC 36 g/dL (32.5-36.3); MEAN CORPUSCULAR VOLUME 91.2 fL (73.0-96.2); MONOCYTES # (AUTO) 0.7 K/uL (2.0-10.0); MONOCYTES % (AUTO) 11.3 % (0.0-11.0); NEUTROPHILS # (AUTO) 4.4 K/uL (1.8-8.9); NEUTROPHILS % (AUTO) 72.9 % (38.5-71.5); PLATELET COUNT (AUTO) 172 K/uL (152-348); RED BLOOD CELL COUNT(AUTO) 2.75 MIL/uL (4.06-5.63); WHITE BLOOD COUNT (AUTO) 6.1 K/uL (3.6-10.2)
[2019-12-07] MEDS: LEVOTHYROXINE SODIUM 50 MCG TABLET GT SCH (06:20)
[2019-12-07 06:32] LABS: CREATININE 2.5 mg/dL (0.6-1.3); MAGNESIUM 2.1 mg/dL (1.8-2.4); PHOSPHOROUS 2.5 mg/dL (2.5-4.9); POTASSIUM 3.3 mmol/L (3.5-5.1)
[2019-12-07] MEDS: SUCRALFATE 1 G/10 ML LIQUID UDC GT SCH ×4 (06:42→20:29)
[2019-12-07] MEDS ORDERED: POTASSIUM CHLORIDE 20 MEQ POWDER PACKET GT ONE (07:00)
[2019-12-07 07:34] LABS: ABG BASE EXCESS 6.3 mmol/L; ABG HCO3 31.4 mmol/L; ABG PCO2 48.6 mmHg (35.0-45.0); ABG PH 7.428 (7.350-7.450); ABG PO2 102.8 mmHg (75.0-100.0); ABG SITE RIGHT RADIAL; COHb 2.6 % (0.5-1.5); MetHb 0.6 % (0.0-1.5); O2Hb 95.1 % (94.0-97.0)
[2019-12-07] MEDS: PANTOPRAZOLE SODIUM 40 MG VIAL IV SCH ×2 (08:14→20:29)
[2019-12-07] MEDS: ACIDOPHILUS/BULGARICUS CHEW TAB GT SCH ×2 (08:43→16:40)
[2019-12-07] MEDS: LOSARTAN POTASSIUM 50 MG TABLET GT SCH ×2 (08:43→16:57)
[2019-12-07] MEDS: FOLIC ACID/VITAMIN B COMP W-C TABLET GT SCH (08:44)
[2019-12-07] MEDS: ZINC SULFATE 220 MG CAPSULE GT SCH (08:44)
[2019-12-07] MEDS: SEVELAMER CARBONATE 800 MG POWD.PACK GT SCH ×3 (08:44→17:00)
[2019-12-07] MEDS: CHOLECALCIFEROL 1,000 UNIT TABLET GT SCH (08:44)
[2019-12-07] MEDS: AMLODIPINE 10 MG TABLET GT SCH (08:44)
[2019-12-07] MEDS: PROTEIN SUPPLEMENT (PROSTAT) 30 ML LIQUID GT SCH (08:44)
[2019-12-07 08:45] VITALS: BP 96/41
[2019-12-07] MEDS: SULFAMETHOXAZOL/TRIMETHOPRI IV 15 ML in IV DEXTROSE 5% 250 ML IV SCH (08:52)
[2019-12-07] MEDS: THERAHONEY GEL 1.5 OZ TUBE TOP SCH (08:52)
--- NOTE | 2019-12-07 09:38 | NUR ---
Pt resting in bed. No signs of distress and does not complain of pain. Pt had EXTRA LARGE bowel movement and was cleaned, changed, and made comfortable. Currently using a Trach and O2 saturation on monitor maintained at 100%. Wound care done on sacrum and foot during change. Patient comfortable. Will continue to monitor.
--- NOTE | 2019-12-07 12:57 | NUR ---
patient was picked up for EGD and colonoscopy in stable condition.
[2019-12-07] MEDS ORDERED: LIDOCAINE-MPF 2% 5 ML VIAL IJ ONE (13:45)
[2019-12-07] MEDS ORDERED: IV NORMAL SALINE 1000 ML BAG IV ONE (13:45)
[2019-12-07] MEDS ORDERED: PROPOFOL 200 MG/20 ML BOTTLE IV ONE (13:45)
[2019-12-07] MEDS ORDERED: EPOETIN ALFA 10,000 UNITS/ML VIAL SQ SCH (15:00)
[2019-12-07 15:06] VITALS: BP 151/29
[2019-12-07] MEDS: IV D5 1/2 NS 1000 ML 1,000 ML IV PRN (16:13)
[2019-12-07] MEDS: NEPRO 1000 ML GT PRN (16:28)
--- NOTE | 2019-12-07 17:00 | NUR ---
Dr. Foote with Order to Resume GTF Nephro at 20cc/hr.
--- NOTE | 2019-12-07 18:07 | NUR ---
Patient in bed, awake, alert and verbally responsive. trach tube intact and midline. No signs of distress noted. No SOB. No complain of pain or discomfort. EGD with colonoscopy was done by Dr. Foote. GT intact and patent, on nephro at 20cc/hr. Kept clean and comfortable. All needs attended and met. Will endorse to oncoming Nurse.
[2019-12-07 20:18] VITALS: BP 143/36
--- NOTE | 2019-12-07 21:00 | NUR ---
RECEIVED PATIENT IN BED, ASLEEP, EASILY AROUSABLE WITH CALLING OF NAME. ALERT AND VERBALLY RESPONSIVE. DIVEHI SPEAKING. PATIENT WITH TRACH AT 4L/MIN, NO RESPIRATORY DISTRESS. GT FEEDING ONGOING, TOLERATED WELL. GT SITE INTACT AND PATENT. MIDLINE AT RIGHT UPPER ARM AND PERIPHERAL LINE AT RIGHT AC ARE BOTH INTACT WITH NO S/S COMPLICATIONS. NO COMPLAINTS OF PAIN AT THIS TIME. FALL, SAFETY, AND ASPIRATION PRECAUTIONS OBSERVED. WILL CONTINUE TO ATTEND AND ANTICIPATE PATIENT'S NEEDS. WILL CONTINUE TO MONITOR PATIENT.
[2019-12-08] VITALS (11 sets, daily range): BP systolic 98–181; BP diastolic 33–50
[2019-12-08] MEDS: BLOOD SUGAR DIAGNOSTIC 1 EACH STRIP VI SCH ×5 (00:18→23:59)
[2019-12-08] MEDS: ALBUTEROL SULFATE 2.5 MG/ 0.5 ML NEBU NEB SCH ×4 (00:36→19:15)
[2019-12-08] MEDS: IPRATROPIUM BROMIDE 0.5 MG/2.5 ML NEBU NEB SCH ×4 (00:36→19:15)
[2019-12-08] MEDS: MINOXIDIL 2.5 MG TABLET GT SCH ×3 (01:42→18:30)
[2019-12-08] MEDS: hydrALAZINE HCL 50 MG TABLET PO SCH ×3 (05:29→21:11)
[2019-12-08] MEDS: LEVOTHYROXINE SODIUM 50 MCG TABLET GT SCH (06:05)
[2019-12-08] MEDS: IV D5 1/2 NS 1000 ML 1,000 ML IV PRN ×2 (06:23→23:49)
--- NOTE | 2019-12-08 06:30 | NUR ---
PATIENT IN BED, ASLEEP, WITH ONGOING DIALYSIS, ACCESS SITE LAKSHMI AV FISTULA. PATIENT IN NO DISTRESS. NO COMPLAINTS OF PAIN. ALL NEEDS ATTENDED.
[2019-12-08] MEDS: SUCRALFATE 1 G/10 ML LIQUID UDC GT SCH ×4 (06:33→21:11)
[2019-12-08 07:32] LABS: BASOPHILS # (AUTO) 0.1 K/uL (0.0-8.0); BASOPHILS % (AUTO) 0.9 % (0.0-2.0); EOSINOPHILS # (AUTO) 0.1 K/uL (0.0-0.7); EOSINOPHILS % (AUTO) 1.2 % (0.0-7.0); LYMPHOCYTES # (AUTO) 0.7 K/uL (20.0-40.0); LYMPHOCYTES % (AUTO) 11.5 % (20.5-51.5); MEAN CORPUSCULAR HEMOGLOBIN 31.7 uug (23.8-33.4); MEAN CORPUSCULAR HGB CONC 35 g/dL (32.5-36.3); MEAN CORPUSCULAR VOLUME 91.8 fL (73.0-96.2); MONOCYTES # (AUTO) 0.6 K/uL (2.0-10.0); NEUTROPHILS # (AUTO) 4.3 K/uL (1.8-8.9); NEUTROPHILS % (AUTO) 76.4 % (38.5-71.5); PLATELET COUNT (AUTO) 163 K/uL (152-348); WHITE BLOOD COUNT (AUTO) 5.7 K/uL (3.6-10.2)
[2019-12-08 07:38] LABS: CREATININE 2.7 mg/dL (0.6-1.3); MAGNESIUM 2.1 mg/dL (1.8-2.4); PHOSPHOROUS 2.3 mg/dL (2.5-4.9); POTASSIUM 3.6 mmol/L (3.5-5.1)
[2019-12-08 07:45] LABS: RED BLOOD CELL COUNT(AUTO) 2.24 MIL/uL (4.06-5.63)
--- NOTE | 2019-12-08 08:00 | NUR ---
Received pt awake and alert on hemodialysis. No signs of pain or acute distress. Remains SR on monitor. Will observe.
[2019-12-08 08:23] LABS: HEMATOCRIT 20.6 % (36.7-47.1); HEMOGLOBIN 7.1 g/dL (12.5-16.3)
[2019-12-08] MEDS: LOSARTAN POTASSIUM 50 MG TABLET GT SCH ×2 (09:08→16:31)
[2019-12-08] MEDS: CHOLECALCIFEROL 1,000 UNIT TABLET GT SCH (09:08)
[2019-12-08] MEDS: FOLIC ACID/VITAMIN B COMP W-C TABLET GT SCH (09:08)
[2019-12-08] MEDS: ACIDOPHILUS/BULGARICUS CHEW TAB GT SCH ×2 (09:08→16:16)
[2019-12-08] MEDS: ZINC SULFATE 220 MG CAPSULE GT SCH (09:08)
[2019-12-08] MEDS: AMLODIPINE 10 MG TABLET GT SCH (09:09)
[2019-12-08] MEDS: PANTOPRAZOLE SODIUM 40 MG VIAL IV SCH ×2 (09:09→21:11)
[2019-12-08] MEDS: ALPRAZOLAM 0.5 MG TABLET GT PRN ×2 (09:12)
[2019-12-08] MEDS: ACETAMINOPHEN 650 MG/20.3 ML LIQUID UDC GT PRN ×2 (09:13→19:33)
[2019-12-08 09:14] LABS: *IMMUNOGLOBULIN G, SERUM 2012 mg/dL (603-1613); IMMUNOGLOBULIN A, SERUM 224 mg/dL (90-386); IMMUNOGLOBULIN M, SERUM 67 mg/dL (20-172)
[2019-12-08] MEDS: PROTEIN SUPPLEMENT (PROSTAT) 30 ML LIQUID GT SCH (09:16)
[2019-12-08] MEDS: THERAHONEY GEL 1.5 OZ TUBE TOP SCH (09:16)
--- NOTE | 2019-12-08 10:00 | NUR ---
Hemodialysis completed without any complication and removed 2 liters of dialysis fluid. Pt tolerated well.
[2019-12-08 12:17] LABS: IRON, SERUM 47 ug/dL (50-175)
[2019-12-08] MEDS ORDERED: SEVELAMER CARBONATE 800 MG POWD.PACK GT SCH (13:00)
--- NOTE | 2019-12-08 13:27 | NUR ---
Seen by Dr. Vigil and noted low hgb and said that it was ok to give 1 unit of blood without dialysis. Will f/u with labs in the morning.
--- NOTE | 2019-12-08 15:00 | NUR ---
blood transfusion 1 unit packed RBCs started. Will monitor
--- NOTE | 2019-12-08 17:43 | NUR ---
blood transfusion complete with out any complication.
--- NOTE | 2019-12-08 18:35 | NUR ---
MINOXIDIL NOT GIVEN FOR 1829 DOSE - BP 97/43
--- NOTE | 2019-12-08 21:30 | NUR ---
RECEIVED PATIENT IN BED, WITH HEAD OF BED ELEVATED AT 45 DEGREES, ASPIRATION PRECAUTIONS OBSERVED, ONGOING TUBE FEEDING OF NEPRO AT 20CC/HR. ONGOING IV FLUID VIA MIDLINE AT RIGHT UPPER ARM, MID LINE INTACT WITH NO SIGNS OF COMPLICATION OR INFILTRATION. PATIENT RECEIVED DUE MEDICATIONS, TOLERATED WELL. TRACH CARE RENDERED BY RT. PT IN NO RESPIRATORY DISTRESS. WILL CONTINUE TO MONITOR PATIENT.
[2019-12-09 00:45] VITALS: BP 144/30
[2019-12-09] MEDS: IPRATROPIUM BROMIDE 0.5 MG/2.5 ML NEBU NEB SCH ×4 (01:16→19:48)
[2019-12-09] MEDS: ALBUTEROL SULFATE 2.5 MG/ 0.5 ML NEBU NEB SCH ×4 (01:17→19:48)
[2019-12-09] MEDS: MINOXIDIL 2.5 MG TABLET GT SCH ×3 (02:36→17:55)
[2019-12-09] MEDS: ACETAMINOPHEN 650 MG/20.3 ML LIQUID UDC GT PRN ×3 (02:48→21:27)
--- NOTE | 2019-12-09 04:29 | NUR ---
PATIENT IN BED, ASLEEP AT THIS TIME. NO CHANGES NOTED DURING THE NIGHT. ALL NEEDS ATTENDED AND ANTICIPATED. FALL, SAFETY, AND ASPIRATION PRECAUTIONS OBSERVED.
[2019-12-09 04:50] VITALS: BP 149/38
[2019-12-09 06:06] LABS: BASOPHILS # (AUTO) 0.2 K/uL (0.0-8.0); BASOPHILS % (AUTO) 2.7 % (0.0-2.0); EOSINOPHILS # (AUTO) 0.2 K/uL (0.0-0.7); EOSINOPHILS % (AUTO) 2.6 % (0.0-7.0); HEMATOCRIT 26.4 % (36.7-47.1); LYMPHOCYTES # (AUTO) 0.9 K/uL (20.0-40.0); LYMPHOCYTES % (AUTO) 13.4 % (20.5-51.5); MEAN CORPUSCULAR HEMOGLOBIN 31.7 uug (23.8-33.4); MEAN CORPUSCULAR HGB CONC 34 g/dL (32.5-36.3); MEAN CORPUSCULAR VOLUME 92.8 fL (73.0-96.2); MONOCYTES # (AUTO) 0.7 K/uL (2.0-10.0); MONOCYTES % (AUTO) 11.1 % (0.0-11.0); NEUTROPHILS # (AUTO) 4.7 K/uL (1.8-8.9); NEUTROPHILS % (AUTO) 70.2 % (38.5-71.5); PLATELET COUNT (AUTO) 177 K/uL (152-348); RED BLOOD CELL COUNT(AUTO) 2.85 MIL/uL (4.06-5.63); WHITE BLOOD COUNT (AUTO) 6.6 K/uL (3.6-10.2)
[2019-12-09] MEDS: BLOOD SUGAR DIAGNOSTIC 1 EACH STRIP VI SCH ×3 (06:09→18:44)
[2019-12-09 06:16] LABS: CREATININE 2.5 mg/dL (0.6-1.3); MAGNESIUM 2.1 mg/dL (1.8-2.4); PHOSPHOROUS 2.1 mg/dL (2.5-4.9); POTASSIUM 3.7 mmol/L (3.5-5.1)
[2019-12-09] MEDS: LEVOTHYROXINE SODIUM 50 MCG TABLET GT SCH (06:18)
[2019-12-09] MEDS: hydrALAZINE HCL 50 MG TABLET PO SCH ×3 (06:18→22:11)
[2019-12-09] MEDS: SUCRALFATE 1 G/10 ML LIQUID UDC GT SCH ×4 (06:33→21:09)
[2019-12-09] MEDS: THERAHONEY GEL 1.5 OZ TUBE TOP SCH (09:00)
[2019-12-09] MEDS: PROTEIN SUPPLEMENT (PROSTAT) 30 ML LIQUID GT SCH (09:00)
[2019-12-09] MEDS: LOSARTAN POTASSIUM 50 MG TABLET GT SCH ×2 (10:22→17:19)
[2019-12-09] MEDS: PANTOPRAZOLE SODIUM 40 MG VIAL IV SCH ×2 (10:22→21:10)
[2019-12-09] MEDS: FOLIC ACID/VITAMIN B COMP W-C TABLET GT SCH (10:22)
[2019-12-09] MEDS: ZINC SULFATE 220 MG CAPSULE GT SCH (10:22)
[2019-12-09] MEDS: CHOLECALCIFEROL 1,000 UNIT TABLET GT SCH (10:22)
[2019-12-09] MEDS: ACIDOPHILUS/BULGARICUS CHEW TAB GT SCH ×2 (10:23→17:19)
[2019-12-09] MEDS: AMLODIPINE 10 MG TABLET GT SCH (10:23)
[2019-12-09] MEDS ORDERED: MIRALAX 17 GM POWD.PACK PO PRN (12:15)
[2019-12-09] MEDS: IV D5 1/2 NS 1000 ML 1,000 ML IV PRN (16:50)
[2019-12-09] MEDS: NEPRO 1000 ML GT PRN (17:13)
--- NOTE | 2019-12-09 20:00 | NUR ---
Received patient lying in bed. AAOx3. No s/s of acute distress noted at this time. Addendum: 12/09/19 at 2226 by GAGAN LI RN G tube patent and intact. Zero residual at the beginning of shift. Nepro running at 20cc/hr. Right upper arm midline patent and intact. Infusing continuous fluids per order. Tracheostomy intact, care rendered by RT. Jermaine CRUMP. Will continue to monitor.
[2019-12-09 20:36] VITALS: BP 141/38
[2019-12-10] MEDS: BLOOD SUGAR DIAGNOSTIC 1 EACH STRIP VI SCH ×4 (00:08→17:14)
[2019-12-10 00:26] VITALS: BP 124/38
[2019-12-10] MEDS: ALBUTEROL SULFATE 2.5 MG/ 0.5 ML NEBU NEB SCH ×4 (00:40→19:39)
[2019-12-10] MEDS: IPRATROPIUM BROMIDE 0.5 MG/2.5 ML NEBU NEB SCH ×4 (00:40→19:39)
[2019-12-10] MEDS: MINOXIDIL 2.5 MG TABLET GT SCH ×3 (02:30→17:30)
[2019-12-10 02:45] VITALS: BP 128/35
[2019-12-10 05:11] VITALS: BP 147/32
[2019-12-10] MEDS: hydrALAZINE HCL 50 MG TABLET PO SCH ×3 (05:48→21:40)
[2019-12-10] MEDS: LEVOTHYROXINE SODIUM 50 MCG TABLET GT SCH (06:09)
[2019-12-10 06:21] LABS: BASOPHILS # (AUTO) 0.1 K/uL (0.0-8.0); BASOPHILS % (AUTO) 1.3 % (0.0-2.0); EOSINOPHILS # (AUTO) 0.3 K/uL (0.0-0.7); EOSINOPHILS % (AUTO) 4.2 % (0.0-7.0); HEMOGLOBIN 8.2 g/dL (12.5-16.3); LYMPHOCYTES # (AUTO) 0.9 K/uL (20.0-40.0); LYMPHOCYTES % (AUTO) 13.3 % (20.5-51.5); MEAN CORPUSCULAR HEMOGLOBIN 31.9 uug (23.8-33.4); MEAN CORPUSCULAR HGB CONC 34 g/dL (32.5-36.3); MEAN CORPUSCULAR VOLUME 93.2 fL (73.0-96.2); MONOCYTES # (AUTO) 0.6 K/uL (2.0-10.0); MONOCYTES % (AUTO) 9.8 % (0.0-11.0); NEUTROPHILS # (AUTO) 4.7 K/uL (1.8-8.9); NEUTROPHILS % (AUTO) 71.4 % (38.5-71.5); PLATELET COUNT (AUTO) 169 K/uL (152-348); RED BLOOD CELL COUNT(AUTO) 2.57 MIL/uL (4.06-5.63); WHITE BLOOD COUNT (AUTO) 6.6 K/uL (3.6-10.2)
[2019-12-10 06:38] LABS: CREATININE 3.1 mg/dL (0.6-1.3); MAGNESIUM 2.1 mg/dL (1.8-2.4); PHOSPHOROUS 2.4 mg/dL (2.5-4.9); POTASSIUM 3.7 mmol/L (3.5-5.1)
[2019-12-10] MEDS: ACETAMINOPHEN 650 MG/20.3 ML LIQUID UDC GT PRN ×3 (06:40→20:27)
[2019-12-10] MEDS: SUCRALFATE 1 G/10 ML LIQUID UDC GT SCH ×4 (06:41→20:27)
--- NOTE | 2019-12-10 07:30 | NUR ---
Awake, alert, oriented x 3. on moderate high back rest. Trach to 4L with O2 sat 96%. GTube feedings, ongoing.
[2019-12-10 08:07] LABS: A/G RATIO 0.7 (0.7-1.7); ALBUMIN 2.6 g/dL (2.9-4.4); ALPHA-1-GLOBULIN 0.3 g/dL (0.0-0.4); ALPHA-2-GLOBULIN 0.6 g/dL (0.4-1.0); BETA GLOBULIN 0.9 g/dL (0.7-1.3); GAMMA GLOBULIN 1.7 g/dL (0.4-1.8); GLOBULIN, TOTAL 3.5 g/dL (2.2-3.9); M-SPIKE Not Observed g/dL (Not Observed)
[2019-12-10 09:38] VITALS: BP 148/49
[2019-12-10] MEDS: LOSARTAN POTASSIUM 50 MG TABLET GT SCH ×2 (09:56→17:02)
[2019-12-10] MEDS: ZINC SULFATE 220 MG CAPSULE GT SCH (09:57)
[2019-12-10] MEDS: AMLODIPINE 10 MG TABLET GT SCH (09:57)
[2019-12-10] MEDS: FOLIC ACID/VITAMIN B COMP W-C TABLET GT SCH (09:57)
[2019-12-10] MEDS: PANTOPRAZOLE SODIUM 40 MG VIAL IV SCH ×2 (09:57→20:27)
[2019-12-10] MEDS: CHOLECALCIFEROL 1,000 UNIT TABLET GT SCH (09:57)
[2019-12-10] MEDS: ACIDOPHILUS/BULGARICUS CHEW TAB GT SCH ×2 (09:57→17:02)
[2019-12-10] MEDS: PROTEIN SUPPLEMENT (PROSTAT) 30 ML LIQUID GT SCH (09:58)
[2019-12-10] MEDS: THERAHONEY GEL 1.5 OZ TUBE TOP SCH (09:58)
[2019-12-10] MEDS: ALPRAZOLAM 0.5 MG TABLET GT PRN (10:15)
--- NOTE | 2019-12-10 10:15 | NUR ---
Complained of headache and anxiety. Tylenol and Alprazolam given as ordered , with relief.
[2019-12-10] MEDS ORDERED: LIDOCAINE HCL 1% 20 ML VIAL IJ PRN (11:00)
--- NOTE | 2019-12-10 13:30 | NUR ---
ST ejsse done, with recommendation for puree
[2019-12-10] MEDS ORDERED: NEUTRA PHOS PACKET GT ONE (14:00)
--- NOTE | 2019-12-10 15:09 | NUR ---
Consent for Bone marrow biopsy through interpreter for the deaf signed by patient. Materials needed prepared. Hemodialysis started, RN at bedside
[2019-12-10 15:18] VITALS: BP 143/60
--- NOTE | 2019-12-10 17:54 | NUR ---
Hemodialysis done with 500 ml output. Had BM again to loose dark orange yellow stool. Incontinence care done. Wound care done. Repositioned in bed comfortably. Trach with passey valve applied tolerated. O2 sat 100%.
[2019-12-10 19:30] VITALS: BP 138/62
[2019-12-11] MEDS: BLOOD SUGAR DIAGNOSTIC 1 EACH STRIP VI SCH ×4 (00:21→18:00)
[2019-12-11] MEDS: IPRATROPIUM BROMIDE 0.5 MG/2.5 ML NEBU NEB SCH ×4 (01:46→20:07)
[2019-12-11] MEDS: ALBUTEROL SULFATE 2.5 MG/ 0.5 ML NEBU NEB SCH ×4 (01:46→20:07)
[2019-12-11 02:42] VITALS: BP 146/69
[2019-12-11] MEDS: MINOXIDIL 2.5 MG TABLET GT SCH ×3 (02:48→17:31)
[2019-12-11] MEDS: ACETAMINOPHEN 650 MG/20.3 ML LIQUID UDC GT PRN ×4 (02:51→23:49)
[2019-12-11 04:30] VITALS: BP 146/62
[2019-12-11 05:57] LABS: BASOPHILS # (AUTO) 0.1 K/uL (0.0-8.0); BASOPHILS % (AUTO) 1.3 % (0.0-2.0); EOSINOPHILS # (AUTO) 0.3 K/uL (0.0-0.7); EOSINOPHILS % (AUTO) 3.8 % (0.0-7.0); HEMATOCRIT 23.6 % (36.7-47.1); LYMPHOCYTES # (AUTO) 0.8 K/uL (20.0-40.0); LYMPHOCYTES % (AUTO) 12.5 % (20.5-51.5); MEAN CORPUSCULAR HEMOGLOBIN 31.8 uug (23.8-33.4); MEAN CORPUSCULAR HGB CONC 34 g/dL (32.5-36.3); MEAN CORPUSCULAR VOLUME 93.4 fL (73.0-96.2); MONOCYTES # (AUTO) 0.6 K/uL (2.0-10.0); MONOCYTES % (AUTO) 8.9 % (0.0-11.0); NEUTROPHILS # (AUTO) 4.9 K/uL (1.8-8.9); NEUTROPHILS % (AUTO) 73.5 % (38.5-71.5); PLATELET COUNT (AUTO) 181 K/uL (152-348); RED BLOOD CELL COUNT(AUTO) 2.53 MIL/uL (4.06-5.63); WHITE BLOOD COUNT (AUTO) 6.7 K/uL (3.6-10.2)
[2019-12-11 06:12] LABS: CREATININE 2.9 mg/dL (0.6-1.3); PHOSPHOROUS 2.5 mg/dL (2.5-4.9); POTASSIUM 4.2 mmol/L (3.5-5.1)
[2019-12-11] MEDS: LEVOTHYROXINE SODIUM 50 MCG TABLET GT SCH (06:23)
[2019-12-11] MEDS: SUCRALFATE 1 G/10 ML LIQUID UDC GT SCH ×4 (06:23→21:44)
[2019-12-11] MEDS: hydrALAZINE HCL 50 MG TABLET PO SCH ×3 (06:24→21:44)
--- NOTE | 2019-12-11 07:57 | NUR ---
REPORT RECEIVED FROM IBRAHIMA GILLETTE
[2019-12-11 08:00] VITALS: BP 155/43
--- NOTE | 2019-12-11 08:59 | NUR ---
CALLED PHARMACY TO BRING LIDOCAINE FOR BONE BIOPSY PROCEDURE. THEY SAID THEY WILL BRING
[2019-12-11] MEDS: PROTEIN SUPPLEMENT (PROSTAT) 30 ML LIQUID GT SCH (09:00)
[2019-12-11] MEDS: THERAHONEY GEL 1.5 OZ TUBE TOP SCH (09:00)
--- NOTE | 2019-12-11 09:38 | NUR ---
CALLED PHARMACY AGAIN THAT LIDOCAINE NEEDED FOR THE PROCEDURE. ALSO COZAAR IS NOT LOGGED IN [facility]. THEY SAID THEY WILL BRING
--- NOTE | 2019-12-11 10:04 | NUR ---
LIDOCAINE BROUGHT FROM PHARMACY AND PLACED IN THE BIN IN PATIENT ROOM WITH BIOPSY SUPPLIES
--- NOTE | 2019-12-11 10:05 | NUR ---
PT IS HERE FOR EVAL
[2019-12-11] MEDS: AMLODIPINE 10 MG TABLET GT SCH (10:34)
[2019-12-11] MEDS: CHOLECALCIFEROL 1,000 UNIT TABLET GT SCH (10:34)
[2019-12-11] MEDS: FOLIC ACID/VITAMIN B COMP W-C TABLET GT SCH (10:34)
[2019-12-11] MEDS: ACIDOPHILUS/BULGARICUS CHEW TAB GT SCH ×2 (10:34→17:32)
[2019-12-11] MEDS: PANTOPRAZOLE SODIUM 40 MG VIAL IV SCH ×2 (10:34→21:44)
[2019-12-11] MEDS: ZINC SULFATE 220 MG CAPSULE GT SCH (10:34)
[2019-12-11] MEDS: LOSARTAN POTASSIUM 50 MG TABLET GT SCH ×2 (10:36→17:17)
--- NOTE | 2019-12-11 12:30 | NUR ---
called [facility] regarding patient's diet and oral intake. they said that patient was strictly on tube feeding
--- NOTE | 2019-12-11 12:40 | NUR ---
COMMUNICATED WITH TIMOTHY Do NP THAT IN [facility] PATIENT WAS ON TUBE FEEDING AT 40 ML/HR. TIMOTHY INCREASED FEEDING RATE TO 40 ML/HR
[2019-12-11] MEDS ORDERED: NEPRO 1000 ML GT PRN (14:30)
--- NOTE | 2019-12-11 19:30 | NUR ---
Received pt with Dr. Dale at bedside during bone medley biopsy aspiration procedure.
[2019-12-11 20:22] LABS: BASOPHILS # (AUTO) 0.1 K/uL (0.0-8.0); BASOPHILS % (AUTO) 1.4 % (0.0-2.0); EOSINOPHILS # (AUTO) 0.3 K/uL (0.0-0.7); EOSINOPHILS % (AUTO) 4.2 % (0.0-7.0); HEMATOCRIT 23.5 % (36.7-47.1); LYMPHOCYTES # (AUTO) 0.8 K/uL (20.0-40.0); LYMPHOCYTES % (AUTO) 10.9 % (20.5-51.5); MEAN CORPUSCULAR HEMOGLOBIN 31.9 uug (23.8-33.4); MEAN CORPUSCULAR HGB CONC 34 g/dL (32.5-36.3); MEAN CORPUSCULAR VOLUME 93.8 fL (73.0-96.2); MONOCYTES # (AUTO) 0.7 K/uL (2.0-10.0); MONOCYTES % (AUTO) 9.2 % (0.0-11.0); NEUTROPHILS # (AUTO) 5.4 K/uL (1.8-8.9); NEUTROPHILS % (AUTO) 74.3 % (38.5-71.5); PLATELET COUNT (AUTO) 188 K/uL (152-348); RED BLOOD CELL COUNT(AUTO) 2.51 MIL/uL (4.06-5.63); WHITE BLOOD COUNT (AUTO) 7.3 K/uL (3.6-10.2)
--- NOTE | 2019-12-11 20:30 | NUR ---
Specimen for bon medley biopsy sent to lab.
[2019-12-11 20:36] VITALS: BP 156/46
--- NOTE | 2019-12-11 21:00 | NUR ---
Patient resting in bed. No signs of distress noted. Does not complain of pain. Trach intact and O2 saturation on monitor maintained at 100%. Intact midline. Patient comfortable. Will continue to monitor.
--- NOTE | 2019-12-11 22:00 | NUR ---
All due medication administered, crushed and through G-tube. On going Nepro 40 ml/ hr. All needs attended to, repositioned for comfort on left side.
--- NOTE | 2019-12-12 | NUR ---
Pt complained of pain in hip and head, administered Tylenol Accucheck 84.
[2019-12-12 00:13] VITALS: BP 154/48
[2019-12-12] MEDS: BLOOD SUGAR DIAGNOSTIC 1 EACH STRIP VI SCH ×4 (00:14→18:33)
[2019-12-12] MEDS: ALBUTEROL SULFATE 2.5 MG/ 0.5 ML NEBU NEB SCH ×4 (00:53→19:41)
[2019-12-12] MEDS: IPRATROPIUM BROMIDE 0.5 MG/2.5 ML NEBU NEB SCH ×4 (00:53→19:41)
[2019-12-12] MEDS: MINOXIDIL 2.5 MG TABLET GT SCH ×3 (02:29→18:40)
[2019-12-12 04:19] LABS: *OCCULT BLOOD STOOL POSITIVE (NEGATIVE)
[2019-12-12 04:58] VITALS: BP 169/43
[2019-12-12] MEDS: hydrALAZINE HCL 50 MG TABLET PO SCH ×2 (06:07→14:12)
[2019-12-12] MEDS: LEVOTHYROXINE SODIUM 50 MCG TABLET GT SCH (06:07)
[2019-12-12] MEDS: SUCRALFATE 1 G/10 ML LIQUID UDC GT SCH ×3 (06:07→15:30)
[2019-12-12 07:12] LABS: BASOPHILS # (AUTO) 0.1 K/uL (0.0-8.0); BASOPHILS % (AUTO) 1.2 % (0.0-2.0); EOSINOPHILS # (AUTO) 0.4 K/uL (0.0-0.7); EOSINOPHILS % (AUTO) 4.3 % (0.0-7.0); HEMATOCRIT 24.2 % (36.7-47.1); HEMOGLOBIN 8.2 g/dL (12.5-16.3); LYMPHOCYTES # (AUTO) 0.7 K/uL (20.0-40.0); LYMPHOCYTES % (AUTO) 8.8 % (20.5-51.5); MEAN CORPUSCULAR HEMOGLOBIN 31.7 uug (23.8-33.4); MEAN CORPUSCULAR HGB CONC 34 g/dL (32.5-36.3); MONOCYTES # (AUTO) 0.7 K/uL (2.0-10.0); MONOCYTES % (AUTO) 8.4 % (0.0-11.0); NEUTROPHILS # (AUTO) 6.5 K/uL (1.8-8.9); NEUTROPHILS % (AUTO) 77.3 % (38.5-71.5); PLATELET COUNT (AUTO) 198 K/uL (152-348); RED BLOOD CELL COUNT(AUTO) 2.57 MIL/uL (4.06-5.63); WHITE BLOOD COUNT (AUTO) 8.3 K/uL (3.6-10.2)
[2019-12-12 07:16] LABS: CREATININE 3.5 mg/dL (0.6-1.3); POTASSIUM 4.2 mmol/L (3.5-5.1)
[2019-12-12 08:30] VITALS: BP 165/47
[2019-12-12] MEDS: FOLIC ACID/VITAMIN B COMP W-C TABLET GT SCH (08:32)
[2019-12-12] MEDS: LOSARTAN POTASSIUM 50 MG TABLET GT SCH ×2 (08:32→17:16)
[2019-12-12] MEDS: CHOLECALCIFEROL 1,000 UNIT TABLET GT SCH (08:32)
[2019-12-12] MEDS: ACIDOPHILUS/BULGARICUS CHEW TAB GT SCH ×2 (08:33→17:16)
[2019-12-12] MEDS: ZINC SULFATE 220 MG CAPSULE GT SCH (08:33)
[2019-12-12] MEDS: AMLODIPINE 10 MG TABLET GT SCH (08:33)
[2019-12-12] MEDS: PANTOPRAZOLE SODIUM 40 MG VIAL IV SCH (08:33)
[2019-12-12] MEDS: THERAHONEY GEL 1.5 OZ TUBE TOP SCH (08:34)
[2019-12-12] MEDS: PROTEIN SUPPLEMENT (PROSTAT) 30 ML LIQUID GT SCH (08:34)
[2019-12-12 10:53] VITALS: BP 90/43
[2019-12-12] MEDS: ACETAMINOPHEN 650 MG/20.3 ML LIQUID UDC GT PRN (15:23)
[2019-12-12 16:15] VITALS: BP 144/43
--- NOTE | 2019-12-12 18:00 | NUR ---
Pt stable throughout shift, AOx4, on trach mask 3L with 99-100% saturation. On tele SR denied any chest pain. Pt able to tolerate PO pureed diet for oral gratificiation. LISA midline flushed and patent. Left fistula noted with bruit. Wound treatment done as ordered. Gtube in place running Nepro 40cc/hr with no residual. Pt had small liquid stool. On air mattress. Safety and aspiration precaution in place.
--- NOTE | 2019-12-12 18:03 | NUR ---
Gave report to Ariana ALEXANDRA in [facility] for transfer endorsement
[2019-12-12 18:41] VITALS: BP 161/62
--- NOTE | 2019-12-12 20:49 | NUR ---
Report given to EMTNandini. Discharge instructions given to patient. Patient left in stable condition
[2019-12-13 06:09] LABS: HEPATITIS Be ANTIGEN Negative (Negative)
== END 2019-12-12 23:08 | DRG 291 ==
LOC: ER 15:25 → TELE3 17:32
PROVIDERS: ADMIT Registered Nurse; ATTEND Registered Nurse
PROC: 05H533Z Insertion of Infusion Device into Right Subclavian Vein, Percutaneous Approach (ICD-10-PCS; 2019-12-05)
PROC: B546ZZA Ultrasonography of Right Subclavian Vein, Guidance (ICD-10-PCS; 2019-12-05)
PROC: 30233N1 Transfusion of Nonautologous Red Blood Cells into Peripheral Vein, Percutaneous Approach (ICD-10-PCS; principal; 2019-12-06)
PROC: 5A1D70Z Performance of Urinary Filtration, Intermittent, Less than 6 Hours Per Day (ICD-10-PCS; 2019-12-06)
PROC: 0DBE8ZX Excision of Large Intestine, Via Natural or Artificial Opening Endoscopic, Diagnostic (ICD-10-PCS; 2019-12-07)
PROC: 0DB68ZX Excision of Stomach, Via Natural or Artificial Opening Endoscopic, Diagnostic (ICD-10-PCS; 2019-12-07)
PROC: 07DR3ZX Extraction of Iliac Bone Marrow, Percutaneous Approach, Diagnostic (ICD-10-PCS; 2019-12-11)
DX: I13.2 Hypertensive heart and chronic kidney disease with heart failure and with stage 5 chronic kidney disease, or end stage renal disease (principal); L89.323 Pressure ulcer of left buttock, stage 3; N18.6 End stage renal disease; E43 Unspecified severe protein-calorie malnutrition; J96.22 Acute and chronic respiratory failure with hypercapnia; J96.21 Acute and chronic respiratory failure with hypoxia; I50.33 Acute on chronic diastolic (congestive) heart failure; J15.9 Unspecified bacterial pneumonia; E87.1 Hypo-osmolality and hyponatremia; G61.0 Guillain-Barre syndrome; D63.1 Anemia in chronic kidney disease; Z86.19 Personal history of other infectious and parasitic diseases; Z93.1 Gastrostomy status; E11.22 Type 2 diabetes mellitus with diabetic chronic kidney disease; Z99.2 Dependence on renal dialysis; Z86.74 Personal history of sudden cardiac arrest; I25.10 Atherosclerotic heart disease of native coronary artery without angina pectoris; E03.9 Hypothyroidism, unspecified; I48.91 Unspecified atrial fibrillation; Z93.0 Tracheostomy status; E88.09 Other disorders of plasma-protein metabolism, not elsewhere classified; I25.2 Old myocardial infarction; N25.0 Renal osteodystrophy; L89.896 Pressure-induced deep tissue damage of other site; Z68.27 Body mass index [BMI] 27.0-27.9, adult; L89.156 Pressure-induced deep tissue damage of sacral region; K44.9 Diaphragmatic hernia without obstruction or gangrene; K64.8 Other hemorrhoids; K29.70 Gastritis, unspecified, without bleeding; Z79.4 Long term (current) use of insulin; L89.899 Pressure ulcer of other site, unspecified stage
CPT/HCPCS: 36415; 36600; 70030-TC; 71045; 82747; 82784; 83550; 83605; 83615; 83690; 83735; 84100; 84155; 84165; 84443; 85014; 85025; 85730; 86140; 86334; 86704; 86850; 86900; 86901; 86920; 87040; 87350; 87400; 88313-TC; 88342; 90937; 93005; 94640; A4217; A4663; C1758; C9113; G0378; J0885; J1815; J1956; J2543; J3370; J3490; J3590; J7030; J7040; J7050; J7060; P9016-BL; P9021; U0003-CS

== ENCOUNTER 2020-02-27 16:40 | Inpatient (IN) | payer MEDICARE, OTHER ==
[~2020-02-27] VITALS: Ht 162.6 cm; Wt 58.1 kg
[~2020-02-27 16:40] MED LIST changes: +ALPR0.5T GT; +AMIN887L GT; +AMLO10TA59 GT; -AMLO10TA7 GT; -MENT71OI TOP; -SULF10VI2 IV
[2020-02-27] MEDS ORDERED: IV NORMAL SALINE 500 ML BAG IV ONE (16:45)
[2020-02-27] MEDS ORDERED: PANTOPRAZOLE SODIUM 40 MG VIAL IV ONE (16:45)
[2020-02-27 17:22] LABS: *OCCULT BLOOD STOOL POSITIVE (NEGATIVE)
[2020-02-27] MEDS ORDERED: PANTOPRAZOLE SODIUM 40 MG VIAL ONE (17:24)
[2020-02-27 17:29] LABS: BASOPHILS # (AUTO) 0.1 K/uL (0.0-8.0); EOSINOPHILS # (AUTO) 0.2 K/uL (0.0-0.7); LYMPHOCYTES # (AUTO) 0.7 K/uL (20.0-40.0)
[2020-02-27 17:34] LABS: BASOPHILS % (AUTO) 0.7 % (0.0-2.0)
[2020-02-27 17:36] LABS: EOSINOPHILS % (AUTO) 1.9 % (0.0-7.0); MEAN CORPUSCULAR HEMOGLOBIN 26.4 uug (23.8-33.4); MEAN CORPUSCULAR HGB CONC 32 g/dL (32.5-36.3); MEAN CORPUSCULAR VOLUME 81.5 fL (73.0-96.2); MONOCYTES % (AUTO) 9.5 % (0.0-11.0); NEUTROPHILS # (AUTO) 8.4 K/uL (1.8-8.9); NEUTROPHILS % (AUTO) 80.9 % (38.5-71.5); PLATELET COUNT (AUTO) 301 K/uL (152-348); WHITE BLOOD COUNT (AUTO) 10.4 K/uL (3.6-10.2)
[2020-02-27 17:38] LABS: RED BLOOD CELL COUNT(AUTO) 1.89 MIL/uL (4.06-5.63)
[2020-02-27 17:41] LABS: IRON, SERUM 36 ug/dL (50-175)
[2020-02-27 17:43] LABS: HEMATOCRIT 15.4 % (36.7-47.1)
[2020-02-27 17:51] LABS: BILIRUBIN,DIRECT 0.1 mg/dL (0.0-0.2); BILIRUBIN,TOTAL 0.3 mg/dL (0.2-1.0); CREATININE 2.6 mg/dL (0.6-1.3); POTASSIUM 3.2 mmol/L (3.5-5.1); TOTAL PROTEIN, SERUM 7.4 g/dL (6.4-8.2)
[2020-02-27 17:57] LABS: LIPASE 153 U/L (73-393)
--- NOTE | 2020-02-27 17:58 | NUR ---
Charis CUSTOMER SUPPORT MANAGER condenser cleaner for Epic panel here to eval patient.
[2020-02-27 18:03] LABS: EOSINOPHILS % (MANUAL) 3 % (0-8); LYMPHOCYTES % (MANUAL) 8 % (20-40); MONOCYTES % (MANUAL) 6 % (2-10); NEUTROPHILS % (MANUAL) 83 % (42-75)
[2020-02-27] MEDS: POTASSIUM CHLORIDE 50 ML IV SCH (18:53)
[2020-02-27] MEDS ORDERED: ONDANSETRON 4 MG/2 ML VIAL IV PRN (19:45)
[2020-02-27] MEDS: MINOXIDIL 2.5 MG TABLET GT SCH (19:45)
[2020-02-27] MEDS ORDERED: Z GUARD REMEDY PASTE 57 GM TUBE TOP PRN (19:45)
[2020-02-27] MEDS ORDERED: SIMETHICONE 80 MG TAB.CHEW GT PRN (19:45)
[2020-02-27] MEDS ORDERED: MORPHINE SULFATE 2 MG/1 ML DISP.SYRIN IV PRN (19:45)
[2020-02-27] MEDS: SUCRALFATE 1 G/10 ML LIQUID UDC GT SCH (21:00)
--- NOTE | 2020-02-27 21:16 | NUR ---
Report given to IBRAHIMA Hadley for continuity of care
--- NOTE | 2020-02-27 21:52 | NUR ---
Patient transferred to room #319
[2020-02-27 22:00] VITALS: BP 154/51
[2020-02-27] MEDS: hydrALAZINE HCL 50 MG TABLET GT SCH (22:00)
--- NOTE | 2020-02-27 22:00 | NUR ---
Pt received from ER via [facility]. Denies SOB or pain at this time. All belongings accounted for. Assessment complete. No other issues or concerns at this time.
[2020-02-27] MEDS ORDERED: NEPRO 1000 ML GT PRN (22:30)
[2020-02-27 22:53] VITALS: BP 155/54
[2020-02-27 23:14] VITALS: BP 148/32
[2020-02-27 23:30] VITALS: BP 140/30
[2020-02-28] VITALS (16 sets, daily range): BP systolic 126–169; BP diastolic 31–60
[2020-02-28] MEDS: MINOXIDIL 2.5 MG TABLET GT SCH ×3 (03:45→21:13)
[2020-02-28] MEDS: ACETAMINOPHEN 650 MG/20.3 ML LIQUID UDC NG PRN (04:14)
--- NOTE | 2020-02-28 04:37 | NUR ---
Tolerated first blood transfusion well. Upon getting ready to infuse 2nd unit, pt had temp of 99.6. Nanette Patiño INSPECTOR HEALTH CARE FACILITIES notified. Gave pt tylenol and 20 min later temp was 97.8. Second unit is now transfusing. No complications so far. No other issues or concerns at this time.
--- NOTE | 2020-02-28 04:41 | NUR ---
BP meds held due to blood transfusion in process and BP 148/32
[2020-02-28] MEDS: hydrALAZINE HCL 50 MG TABLET GT SCH ×3 (06:00→21:14)
--- NOTE | 2020-02-28 06:35 | NUR ---
Pt slept throughout the night with no complaints. Is still transfusing second unit of blood and is tolerating well with no complaints. No acute distress noted. Pt is on a trach with 4L. Denies pain at this time. Will endorse to day shift.
[2020-02-28] MEDS: LEVOTHYROXINE SODIUM 50 MCG TABLET GT SCH (06:40)
[2020-02-28] MEDS: SUCRALFATE 1 G/10 ML LIQUID UDC GT SCH ×4 (06:40→21:12)
[2020-02-28 07:16] LABS: BASOPHILS # (AUTO) 0.1 K/uL (0.0-8.0); BASOPHILS % (AUTO) 0.7 % (0.0-2.0); BILIRUBIN,TOTAL 0.3 mg/dL (0.2-1.0); CREATININE 2.9 mg/dL (0.6-1.3); EOSINOPHILS # (AUTO) 0.1 K/uL (0.0-0.7); EOSINOPHILS % (AUTO) 1.2 % (0.0-7.0); LYMPHOCYTES # (AUTO) 0.8 K/uL (20.0-40.0); LYMPHOCYTES % (AUTO) 6.5 % (20.5-51.5); MAGNESIUM 2.5 mg/dL (1.8-2.4); MEAN CORPUSCULAR HEMOGLOBIN 27.5 uug (23.8-33.4); MEAN CORPUSCULAR HGB CONC 32 g/dL (32.5-36.3); MEAN CORPUSCULAR VOLUME 85.8 fL (73.0-96.2); MONOCYTES # (AUTO) 1.1 K/uL (2.0-10.0); NEUTROPHILS % (AUTO) 82.6 % (38.5-71.5); PHOSPHOROUS 2.8 mg/dL (2.5-4.9); PLATELET COUNT (AUTO) 295 K/uL (152-348); POTASSIUM 3.7 mmol/L (3.5-5.1); TOTAL PROTEIN, SERUM 7.2 g/dL (6.4-8.2); WHITE BLOOD COUNT (AUTO) 12.1 K/uL (3.6-10.2)
[2020-02-28 07:23] LABS: THYROID STIMULATING HORMONE 3.299 mIU/mL (0.358-3.740)
[2020-02-28] MEDS ORDERED: Medication Not On Formulary EA (Protein Supplement (Prosource) 30 ML) PO SCH (08:00)
[2020-02-28] MEDS: POTASSIUM CHLORIDE 50 ML IV SCH (08:00)
[2020-02-28] MEDS ORDERED: PROTEIN SUPPLEMENT (PROSTAT) 30 ML LIQUID GT SCH (08:00)
[2020-02-28] MEDS ORDERED: PANTOPRAZOLE ORAL SUSPENSION 40 MG SUSPDR.PKT GT SCH (09:00)
[2020-02-28] MEDS ORDERED: LEVOTHYROXINE SODIUM 25 MCG TABLET GT SCH (09:00)
[2020-02-28] MEDS ORDERED: PANTOPRAZOLE SODIUM 40 MG VIAL IV SCH (09:00)
[2020-02-28] MEDS: ACIDOPHILUS/BULGARICUS CHEW TAB GT SCH ×2 (10:30→17:26)
[2020-02-28] MEDS: FOLIC ACID/VITAMIN B COMP W-C TABLET GT SCH (10:31)
[2020-02-28] MEDS: CHOLECALCIFEROL 1,000 UNIT TABLET GT SCH (10:31)
[2020-02-28] MEDS: ZINC SULFATE 220 MG CAPSULE GT SCH (10:31)
[2020-02-28] MEDS: PROTEIN SUPPLEMENT (PROSTAT) 30 ML LIQUID GT SCH (10:32)
[2020-02-28] MEDS: LOSARTAN POTASSIUM 50 MG TABLET GT SCH ×2 (10:38→21:12)
[2020-02-28] MEDS: AMLODIPINE 10 MG TABLET GT SCH (10:38)
[2020-02-28] MEDS: SEVELAMER CARBONATE 800 MG POWD.PACK GT SCH ×3 (10:43→17:26)
[2020-02-28] MEDS: NEPRO 1000 ML GT PRN ×2 (11:30→13:39)
[2020-02-28 11:38] LABS: HEMOGLOBIN 6.4 g/dL (12.5-16.3); RED BLOOD CELL COUNT(AUTO) 2.33 MIL/uL (4.06-5.63)
[2020-02-28] MEDS: ALPRAZOLAM 0.5 MG TABLET GT PRN (13:36)
[2020-02-28] MEDS: HYDROCODONE/APAP 5-325MG TABLET GT PRN (13:37)
--- NOTE | 2020-02-28 19:45 | NUR ---
PATIENT IN BED ALERT ORIENTED, NO SOB NO CHEST PAIN. PATIENT HAS NO COMPLAIN OF PAIN, LEFT UPPER ARM AV SHUNT INTACT, NO BLEEDING NOTED, ON GTF TOLERATE WELL, TRACH INTACT, WITH VALVE IN PLACE, ABLE TO VERBALIZES NEEDS, CONT TO MONITOR.
[2020-02-28 20:57] LABS: BAND % (MANUAL) 1 % (0-10); EOSINOPHILS % (MANUAL) 1 % (0-8); LYMPHOCYTES % (MANUAL) 12 % (20-40); MONOCYTES % (MANUAL) 6 % (2-10); NEUTROPHILS % (MANUAL) 80 % (42-75)
[2020-02-28] MEDS: PANTOPRAZOLE SODIUM 40 MG VIAL IV SCH (21:12)
--- NOTE | 2020-02-28 23:16 | NUR ---
PATIENT ALERT ORIENTED, NO SOB NO CHEST PAIN, TELE MONITOR SINUS RHYTHM AT THIS TIME. TRANSFUSING PRBC TOLERATE WELL, NO S/S OF ADVERSE REACTION NOTED, NO COUGHING, NO CONGESTON , CONT TO MONITOR.
[2020-02-29] VITALS (8 sets, daily range): BP systolic 117–170; BP diastolic 31–50
--- NOTE | 2020-02-29 01:38 | NUR ---
PATIENT TRANSFUSED 1 UNIT PRBC TOLERATE WELL, NO SOB NO CHEST PAIN, NO CONGESTION NO COUGHING NOTED, NO ADVERSE REACTION NOTED. CONT TO MONITOR.
[2020-02-29] MEDS: hydrALAZINE HCL 50 MG TABLET GT SCH ×3 (06:00→22:00)
[2020-02-29] MEDS: LEVOTHYROXINE SODIUM 50 MCG TABLET GT SCH (06:00)
[2020-02-29] MEDS: MINOXIDIL 2.5 MG TABLET GT SCH ×3 (06:00→22:00)
[2020-02-29] MEDS: SUCRALFATE 1 G/10 ML LIQUID UDC GT SCH ×4 (06:00→21:41)
[2020-02-29 06:03] LABS: BASOPHILS # (AUTO) 0.1 K/uL (0.0-8.0); BASOPHILS % (AUTO) 0.6 % (0.0-2.0); EOSINOPHILS # (AUTO) 0.1 K/uL (0.0-0.7); EOSINOPHILS % (AUTO) 0.7 % (0.0-7.0); HEMATOCRIT 23.5 % (36.7-47.1); HEMOGLOBIN 7.7 g/dL (12.5-16.3); LYMPHOCYTES # (AUTO) 0.5 K/uL (20.0-40.0); LYMPHOCYTES % (AUTO) 4.3 % (20.5-51.5); MEAN CORPUSCULAR HEMOGLOBIN 27.8 uug (23.8-33.4); MEAN CORPUSCULAR HGB CONC 33 g/dL (32.5-36.3); MEAN CORPUSCULAR VOLUME 85.1 fL (73.0-96.2); MONOCYTES # (AUTO) 1.1 K/uL (2.0-10.0); MONOCYTES % (AUTO) 8.7 % (0.0-11.0); NEUTROPHILS # (AUTO) 10.5 K/uL (1.8-8.9); NEUTROPHILS % (AUTO) 85.7 % (38.5-71.5); PLATELET COUNT (AUTO) 290 K/uL (152-348); RED BLOOD CELL COUNT(AUTO) 2.76 MIL/uL (4.06-5.63); WHITE BLOOD COUNT (AUTO) 12.3 K/uL (3.6-10.2)
[2020-02-29] MEDS: ACETAMINOPHEN 650 MG/20.3 ML LIQUID UDC NG PRN ×2 (06:09→23:36)
--- NOTE | 2020-02-29 06:39 | NUR ---
PATIENT ALERT ORIENTED, NO SOB NO CHEST PAIN, NO DESATURATION NOTED. PATIENT TRACH INTACT, GT INTACT NO RESIDUAL NOTED. TREATMENT DONE ON GT SITE AND RT DID TRACH CARE. PATIENT HAS NO ADVERSE REACTION FROM BLOOD TRANSFUSION. KEPT COMFORTABLE.
[2020-02-29 07:24] LABS: CREATININE 2.7 mg/dL (0.6-1.3); MAGNESIUM 2.6 mg/dL (1.8-2.4); POTASSIUM 3.7 mmol/L (3.5-5.1)
[2020-02-29] MEDS ORDERED: EPOETIN ALFA 10,000 UNITS/ML VIAL SQ SCH (09:00)
[2020-02-29] MEDS: ACIDOPHILUS/BULGARICUS CHEW TAB GT SCH ×2 (09:06→17:00)
[2020-02-29] MEDS: LOSARTAN POTASSIUM 50 MG TABLET GT SCH ×2 (09:06→21:42)
[2020-02-29] MEDS: FOLIC ACID/VITAMIN B COMP W-C TABLET GT SCH (09:06)
[2020-02-29] MEDS: PROTEIN SUPPLEMENT (PROSTAT) 30 ML LIQUID GT SCH (09:06)
[2020-02-29] MEDS: ZINC SULFATE 220 MG CAPSULE GT SCH (09:06)
[2020-02-29] MEDS: CHOLECALCIFEROL 1,000 UNIT TABLET GT SCH (09:06)
[2020-02-29] MEDS: HYDROCODONE/APAP 5-325MG TABLET GT PRN (09:07)
[2020-02-29] MEDS: AMLODIPINE 10 MG TABLET GT SCH (09:07)
[2020-02-29] MEDS: PANTOPRAZOLE SODIUM 40 MG VIAL IV SCH ×2 (09:09→21:41)
[2020-02-29] MEDS: SEVELAMER CARBONATE 800 MG POWD.PACK GT SCH ×3 (09:12→17:00)
[2020-02-29] MEDS: EPOETIN ALFA 20,000 UNIT/ML ML SQ SCH (11:00)
[2020-02-29] MEDS: NEPRO 1000 ML GT PRN (13:03)
--- NOTE | 2020-02-29 14:30 | NUR ---
Gt plugged. Attempts to declog gt unsuccessful. Coughing up sputum most of the am. Suctioned prn.
--- NOTE | 2020-02-29 16:30 | NUR ---
Rafael Steele notified of mrsa of nares., and clogged gt. - orders received.
--- NOTE | 2020-02-29 19:30 | NUR ---
Pt received awake and alert in bed. Denies pain at this time. Denies SOB. Pt was suctioned through trach and tolerated well. Denies any discomfort. No other issues or concerns at this time.
[2020-03-01 01:05] VITALS: BP 140/41
[2020-03-01 05:30] VITALS: BP 147/33
[2020-03-01] MEDS: hydrALAZINE HCL 50 MG TABLET GT SCH ×3 (05:37→22:00)
[2020-03-01] MEDS: MINOXIDIL 2.5 MG TABLET GT SCH ×3 (05:37→22:00)
[2020-03-01] MEDS: LEVOTHYROXINE SODIUM 50 MCG TABLET GT SCH (06:02)
[2020-03-01] MEDS: SUCRALFATE 1 G/10 ML LIQUID UDC GT SCH ×4 (06:34→21:07)
--- NOTE | 2020-03-01 06:44 | NUR ---
Pt slept throughout the night with no complaints. Denies pain or SOB at this time. On 4L sating at 100%. All medications given throughout GT with no complications. Will endorse to day shift.
[2020-03-01 08:00] VITALS: BP 151/40
[2020-03-01 09:26] LABS: BASOPHILS # (AUTO) 0.1 K/uL (0.0-8.0); BASOPHILS % (AUTO) 0.5 % (0.0-2.0); EOSINOPHILS # (AUTO) 0.1 K/uL (0.0-0.7); EOSINOPHILS % (AUTO) 0.7 % (0.0-7.0); HEMATOCRIT 23.6 % (36.7-47.1); HEMOGLOBIN 7.9 g/dL (12.5-16.3); LYMPHOCYTES # (AUTO) 0.7 K/uL (20.0-40.0); MEAN CORPUSCULAR HEMOGLOBIN 28.1 uug (23.8-33.4); MEAN CORPUSCULAR HGB CONC 34 g/dL (32.5-36.3); MEAN CORPUSCULAR VOLUME 83.7 fL (73.0-96.2); MONOCYTES # (AUTO) 1.2 K/uL (2.0-10.0); MONOCYTES % (AUTO) 7.2 % (0.0-11.0); NEUTROPHILS # (AUTO) 14.8 K/uL (1.8-8.9); NEUTROPHILS % (AUTO) 87.6 % (38.5-71.5); PLATELET COUNT (AUTO) 330 K/uL (152-348); RED BLOOD CELL COUNT(AUTO) 2.82 MIL/uL (4.06-5.63); WHITE BLOOD COUNT (AUTO) 16.9 K/uL (3.6-10.2)
[2020-03-01] MEDS: ACIDOPHILUS/BULGARICUS CHEW TAB GT SCH ×2 (09:40→17:03)
[2020-03-01] MEDS: LOSARTAN POTASSIUM 50 MG TABLET GT SCH ×2 (09:40→21:07)
[2020-03-01] MEDS: FOLIC ACID/VITAMIN B COMP W-C TABLET GT SCH (09:40)
[2020-03-01] MEDS: CHOLECALCIFEROL 1,000 UNIT TABLET GT SCH (09:40)
[2020-03-01] MEDS: AMLODIPINE 10 MG TABLET GT SCH (09:40)
[2020-03-01] MEDS: PROTEIN SUPPLEMENT (PROSTAT) 30 ML LIQUID GT SCH (09:40)
[2020-03-01] MEDS: PANTOPRAZOLE SODIUM 40 MG VIAL IV SCH ×2 (09:41→21:57)
[2020-03-01] MEDS: SEVELAMER CARBONATE 800 MG POWD.PACK GT SCH ×3 (09:41→17:03)
[2020-03-01] MEDS: ZINC SULFATE 220 MG CAPSULE GT SCH (09:41)
[2020-03-01] MEDS: HYDROCODONE/APAP 5-325MG TABLET GT PRN (09:43)
[2020-03-01 09:44] LABS: CREATININE 2.3 mg/dL (0.6-1.3); MAGNESIUM 2.4 mg/dL (1.8-2.4); PHOSPHOROUS 1.4 mg/dL (2.5-4.9); POTASSIUM 4.5 mmol/L (3.5-5.1)
[2020-03-01 11:50] VITALS: BP 150/34
[2020-03-01] MEDS: MUPIROCIN 2% OINT 22 GM TUBE NS SCH ×2 (13:33→21:11)
[2020-03-01] MEDS: ALPRAZOLAM 0.5 MG TABLET GT PRN (13:34)
[2020-03-01] MEDS ORDERED: NEUTRA PHOS PACKET PO ONE (15:45)
[2020-03-01 16:31] VITALS: BP 118/34
[2020-03-01] MEDS: NEPRO 1000 ML GT PRN (17:49)
[2020-03-01 20:00] VITALS: BP 108/71
--- NOTE | 2020-03-01 20:00 | NUR ---
NSG: Pt received alert and oriented lying in bed. Denies pain or discomfort at this time. Denies SOB. Pt was suctioned through trach and tolerated well. No other issues or concerns at this time. call light w/in reach.
[2020-03-01] MEDS: ACETAMINOPHEN 650 MG/20.3 ML LIQUID UDC NG PRN (21:15)
--- NOTE | 2020-03-01 21:15 | NUR ---
patient c/o gen: pain. tylenol 650 mg given via gt.
--- NOTE | 2020-03-01 22:15 | NUR ---
patient stated i am feeling better now. Tylenol effective for pain.
[2020-03-02] VITALS: BP 112/68
[2020-03-02 04:00] VITALS: BP 112/65
--- NOTE | 2020-03-02 04:45 | NUR ---
Remain calm and cooperative. GTF running on 50 cc/hrs. f/c draining yellow urine. patient resting quietly. no s/s of pain or discomfort noted at this time. call light w/in reach.
[2020-03-02] MEDS: hydrALAZINE HCL 50 MG TABLET GT SCH ×3 (05:04→22:11)
[2020-03-02] MEDS: MINOXIDIL 2.5 MG TABLET GT SCH ×3 (05:04→22:12)
[2020-03-02] MEDS: LEVOTHYROXINE SODIUM 50 MCG TABLET GT SCH (06:06)
[2020-03-02] MEDS: SUCRALFATE 1 G/10 ML LIQUID UDC GT SCH ×4 (06:12→22:28)
[2020-03-02] MEDS: PROTEIN SUPPLEMENT (PROSTAT) 30 ML LIQUID GT SCH (08:36)
[2020-03-02] MEDS: MUPIROCIN 2% OINT 22 GM TUBE NS SCH ×2 (08:36→22:16)
[2020-03-02] MEDS: SEVELAMER CARBONATE 800 MG POWD.PACK GT SCH ×3 (08:36→17:00)
[2020-03-02] MEDS: ACIDOPHILUS/BULGARICUS CHEW TAB GT SCH ×2 (08:37→17:00)
[2020-03-02] MEDS: PANTOPRAZOLE SODIUM 40 MG VIAL IV SCH ×2 (08:37→22:12)
[2020-03-02] MEDS: ZINC SULFATE 220 MG CAPSULE GT SCH (08:37)
[2020-03-02] MEDS: CHOLECALCIFEROL 1,000 UNIT TABLET GT SCH (08:38)
[2020-03-02] MEDS: AMLODIPINE 10 MG TABLET GT SCH (08:38)
[2020-03-02] MEDS: FOLIC ACID/VITAMIN B COMP W-C TABLET GT SCH (08:38)
[2020-03-02] MEDS: LOSARTAN POTASSIUM 50 MG TABLET GT SCH ×2 (08:38→22:10)
[2020-03-02] MEDS ORDERED: NEUTRA PHOS PACKET GT ONE (11:00)
[2020-03-02 11:12] VITALS: BP 135/35
--- NOTE | 2020-03-02 14:00 | NUR ---
found patient lying on kinked gt. gt occluded. Unsuccessful attempts made unplug gt.
[2020-03-02 15:46] VITALS: BP 138/36
--- NOTE | 2020-03-02 17:30 | NUR ---
Still unable to declog gt.
[2020-03-02 18:43] LABS: *BILIRUBIN,URIN NEGATIVE (NEGATIVE); *BLOOD, URINE 3+ (NEGATIVE); *CLARITY,URINE SLIGHTLY CLOUDY (CLEAR); *COLOR,URINE DARK YELLOW (YELLOW); *KETONES,URINE 1+ (NEGATIVE); *UROBILINOGEN,URINE 0.2 E.U./dl (NORMAL); LEUKOCYTE ESTERASE ,URINE NEGATIVE (NEGATIVE); NITRITE, URINE NEGATIVE (NEGATIVE); PH,URINE 5.5 (5.0-8.0); UGLUCOSE NEGATIVE (NEGATIVE)
[2020-03-02 18:57] LABS: RBC,URINE 80-100 /HPF (0-3)
[2020-03-02 18:58] LABS: BACTERIA,URINE FEW /HPF (NONE SEEN); SQUAMOUS EPITHELIAL CELL,UR NONE SEEN /HPF (NONE SEEN)
[2020-03-02 18:59] LABS: CALCIUM OXALATE CRYSTALS,UR FEW /HPF (NONE SEEN)
[2020-03-02 20:50] VITALS: BP 126/38
[2020-03-02] MEDS: HYDROCODONE/APAP 5-325MG TABLET GT PRN (22:12)
[2020-03-03 01:08] VITALS: BP 124/34
[2020-03-03 05:36] VITALS: BP 159/43
[2020-03-03] MEDS: MINOXIDIL 2.5 MG TABLET GT SCH ×3 (06:21→22:00)
[2020-03-03] MEDS: LEVOTHYROXINE SODIUM 50 MCG TABLET GT SCH (06:21)
[2020-03-03] MEDS: SUCRALFATE 1 G/10 ML LIQUID UDC GT SCH ×4 (06:21→20:43)
[2020-03-03] MEDS: hydrALAZINE HCL 50 MG TABLET GT SCH ×3 (06:23→22:00)
[2020-03-03 07:42] LABS: BASOPHILS # (AUTO) 0.1 K/uL (0.0-8.0); BASOPHILS % (AUTO) 0.4 % (0.0-2.0); EOSINOPHILS # (AUTO) 0.2 K/uL (0.0-0.7); EOSINOPHILS % (AUTO) 1.2 % (0.0-7.0); HEMATOCRIT 25.4 % (36.7-47.1); HEMOGLOBIN 8.1 g/dL (12.5-16.3); LYMPHOCYTES # (AUTO) 0.7 K/uL (20.0-40.0); LYMPHOCYTES % (AUTO) 4.4 % (20.5-51.5); MEAN CORPUSCULAR HEMOGLOBIN 27.1 uug (23.8-33.4); MEAN CORPUSCULAR HGB CONC 32 g/dL (32.5-36.3); MEAN CORPUSCULAR VOLUME 84.5 fL (73.0-96.2); MONOCYTES # (AUTO) 0.9 K/uL (2.0-10.0); MONOCYTES % (AUTO) 5.9 % (0.0-11.0); NEUTROPHILS # (AUTO) 13.6 K/uL (1.8-8.9); NEUTROPHILS % (AUTO) 88.1 % (38.5-71.5); PLATELET COUNT (AUTO) 345 K/uL (152-348); WHITE BLOOD COUNT (AUTO) 15.5 K/uL (3.6-10.2)
[2020-03-03 08:05] LABS: BILIRUBIN,TOTAL 0.4 mg/dL (0.2-1.0); CREATININE 4.1 mg/dL (0.6-1.3); MAGNESIUM 2.7 mg/dL (1.8-2.4); PHOSPHOROUS 2.2 mg/dL (2.5-4.9); POTASSIUM 4.8 mmol/L (3.5-5.1); TOTAL PROTEIN, SERUM 8.2 g/dL (6.4-8.2)
[2020-03-03] MEDS: ZINC SULFATE 220 MG CAPSULE GT SCH (09:28)
[2020-03-03] MEDS: FOLIC ACID/VITAMIN B COMP W-C TABLET GT SCH (09:28)
[2020-03-03] MEDS: PANTOPRAZOLE SODIUM 40 MG VIAL IV SCH ×2 (09:28→20:45)
[2020-03-03] MEDS: ACETAMINOPHEN 650 MG/20.3 ML LIQUID UDC NG PRN ×2 (09:28→20:47)
[2020-03-03] MEDS: CHOLECALCIFEROL 1,000 UNIT TABLET GT SCH (09:28)
[2020-03-03] MEDS: LOSARTAN POTASSIUM 50 MG TABLET GT SCH ×2 (09:29→22:00)
[2020-03-03] MEDS: ACIDOPHILUS/BULGARICUS CHEW TAB GT SCH ×2 (09:29→16:30)
[2020-03-03] MEDS: PROTEIN SUPPLEMENT (PROSTAT) 30 ML LIQUID GT SCH (09:30)
[2020-03-03] MEDS: AMLODIPINE 10 MG TABLET GT SCH (09:30)
[2020-03-03] MEDS: MUPIROCIN 2% OINT 22 GM TUBE NS SCH ×2 (09:31→23:28)
[2020-03-03] MEDS: SEVELAMER CARBONATE 800 MG POWD.PACK GT SCH ×3 (09:31→16:34)
[2020-03-03 11:47] VITALS: BP 135/43
[2020-03-03 15:25] VITALS: BP 132/49
[2020-03-03] MEDS ORDERED: NEUTRA PHOS PACKET PO ONE (17:45)
[2020-03-03 20:35] VITALS: BP 135/33
--- NOTE | 2020-03-03 21:54 | NUR ---
PATIENT HAS ELEVATED TEMP 101.4, NOTIFY CHEYENNE ADMISSIONS DIRECTOR WITH ORDER BLOOD CULTURE. GIVEN TYLENOL PLUS COOLING MEASURE. CONT TO MONITOR.
[2020-03-04 04:25] VITALS: BP 129/30
[2020-03-04] MEDS: hydrALAZINE HCL 50 MG TABLET GT SCH ×3 (06:00→21:22)
[2020-03-04] MEDS: MINOXIDIL 2.5 MG TABLET GT SCH ×3 (06:00→21:23)
[2020-03-04] MEDS: ACETAMINOPHEN 650 MG/20.3 ML LIQUID UDC NG PRN ×2 (06:40→13:44)
--- NOTE | 2020-03-04 06:43 | NUR ---
PATIENT BLOOD PRESSURE LOW, ALL BP MEDS HELD, PATIENT HAS ELEVATED TEMP 101. GIVEN TYLENOL AND COOLING MEASURES, TX DONE ON SACRAL, L TROCHANTER, CONT TO MONITOR.
[2020-03-04] MEDS: NEPRO 1000 ML GT PRN (06:45)
[2020-03-04] MEDS: LEVOTHYROXINE SODIUM 50 MCG TABLET GT SCH (06:50)
[2020-03-04 07:15] LABS: CREATININE 3.6 mg/dL (0.6-1.3); MAGNESIUM 2.5 mg/dL (1.8-2.4); PHOSPHOROUS 1.6 mg/dL (2.5-4.9); POTASSIUM 5.1 mmol/L (3.5-5.1)
[2020-03-04] MEDS: SUCRALFATE 1 G/10 ML LIQUID UDC GT SCH ×4 (07:30→21:12)
--- NOTE | 2020-03-04 07:45 | NUR ---
Sleeping. O2 per trach mask at 4L. Gtube on
[2020-03-04 08:53] LABS: BASOPHILS # (AUTO) 0.1 K/uL (0.0-8.0); LYMPHOCYTES # (AUTO) 0.5 K/uL (20.0-40.0); MONOCYTES # (AUTO) 0.8 K/uL (2.0-10.0)
[2020-03-04 08:55] LABS: BASOPHILS % (AUTO) 0.8 % (0.0-2.0); EOSINOPHILS % (AUTO) 0.2 % (0.0-7.0); HEMATOCRIT 21.4 % (36.7-47.1); LYMPHOCYTES % (AUTO) 4.6 % (20.5-51.5); MEAN CORPUSCULAR HEMOGLOBIN 28.5 uug (23.8-33.4); MEAN CORPUSCULAR HGB CONC 34 g/dL (32.5-36.3); MEAN CORPUSCULAR VOLUME 85.1 fL (73.0-96.2); NEUTROPHILS # (AUTO) 9.5 K/uL (1.8-8.9); NEUTROPHILS % (AUTO) 87.4 % (38.5-71.5); PLATELET COUNT (AUTO) 282 K/uL (152-348); RED BLOOD CELL COUNT(AUTO) 2.52 MIL/uL (4.06-5.63); WHITE BLOOD COUNT (AUTO) 10.9 K/uL (3.6-10.2)
[2020-03-04] MEDS: ZINC SULFATE 220 MG CAPSULE GT SCH (09:48)
[2020-03-04] MEDS: FOLIC ACID/VITAMIN B COMP W-C TABLET GT SCH (09:48)
[2020-03-04] MEDS: PANTOPRAZOLE SODIUM 40 MG VIAL IV SCH ×2 (09:48→21:12)
[2020-03-04] MEDS: ACIDOPHILUS/BULGARICUS CHEW TAB GT SCH ×2 (09:48→18:03)
[2020-03-04] MEDS: LOSARTAN POTASSIUM 50 MG TABLET GT SCH ×2 (09:49→21:00)
[2020-03-04] MEDS: MUPIROCIN 2% OINT 22 GM TUBE NS SCH ×2 (09:49→21:24)
[2020-03-04] MEDS: CHOLECALCIFEROL 1,000 UNIT TABLET GT SCH (09:54)
[2020-03-04] MEDS: SEVELAMER CARBONATE 800 MG POWD.PACK GT SCH ×3 (09:55→18:03)
[2020-03-04] MEDS: PROTEIN SUPPLEMENT (PROSTAT) 30 ML LIQUID GT SCH (09:57)
[2020-03-04] MEDS: AMLODIPINE 10 MG TABLET GT SCH (09:57)
[2020-03-04 10:15] LABS: HEMOGLOBIN 7.2 g/dL (12.5-16.3)
--- NOTE | 2020-03-04 10:30 | NUR ---
Patient scheduled to have surgery (right total hip arthoplasty). Patient left unit for surgery conducted by MD Julian. Taken out by bed. Addendum: 03/04/20 at 1953 by RAMESH CAMERON RN note not for this patient
--- NOTE | 2020-03-04 11:53 | NUR ---
WOUND CARE CONSULT: PT PRESENTS WITH RASH TO PERINEUM, GROIN AREAS AND PENIS, SACRAL SCAR, LEFT BUTTOCK SCARRING, SCARRING TO HEELS AND ANKLES, AND LEFT POSTERIOR THIGH ABSCESS WITH PURULENT DRAINAGE, PRESENT ON ADMISSION. DISCUSSED WITH NILES ALEJANDRE NP. GENERAL SURGERY CONSULT TO BE CALLED BY ATTENDING SHEET METAL SMITH. RECOMMENDATIONS MADE FOR SKIN PROTECTION. DISCUSSED WITH NURSING STAFF. MD IN AGREEMENT WITH PLAN OF CARE. Addendum: 03/04/20 at 1156 by GABI NICHOLSON RN Amended: Links added.
[2020-03-04] MEDS: CEFTRIAXONE 1 G in IV DEXTROSE 5% 50 ML IV SCH (12:13)
[2020-03-04 12:32] LABS: BASOPHILS # (AUTO) 0.1 K/uL (0.0-8.0); BASOPHILS % (AUTO) 0.6 % (0.0-2.0); EOSINOPHILS # (AUTO) 0.1 K/uL (0.0-0.7); EOSINOPHILS % (AUTO) 0.7 % (0.0-7.0); HEMATOCRIT 21.9 % (36.7-47.1); LYMPHOCYTES # (AUTO) 0.6 K/uL (20.0-40.0); LYMPHOCYTES % (AUTO) 5.4 % (20.5-51.5); MEAN CORPUSCULAR HEMOGLOBIN 27.1 uug (23.8-33.4); MEAN CORPUSCULAR HGB CONC 32 g/dL (32.5-36.3); MEAN CORPUSCULAR VOLUME 84.9 fL (73.0-96.2); MONOCYTES # (AUTO) 0.8 K/uL (2.0-10.0); MONOCYTES % (AUTO) 7.2 % (0.0-11.0); NEUTROPHILS % (AUTO) 86.1 % (38.5-71.5); PLATELET COUNT (AUTO) 279 K/uL (152-348); RED BLOOD CELL COUNT(AUTO) 2.58 MIL/uL (4.06-5.63); WHITE BLOOD COUNT (AUTO) 11.7 K/uL (3.6-10.2)
[2020-03-04 12:34] LABS: CREATININE 3.7 mg/dL (0.6-1.3); MAGNESIUM 2.6 mg/dL (1.8-2.4); POTASSIUM 4.9 mmol/L (3.5-5.1)
[2020-03-04 12:42] VITALS: BP 130/29
--- NOTE | 2020-03-04 14:00 | NUR ---
Patient is alert and orientated x4. G-tube clogged throughout morning, and was successfully declogged. Trach care completed. Patient swabbed for Covid-19 as per order, pending results. Per metal gauge maker, general surgery to be called by attending SAP GATHERER to evaluation of abscess. Safety precautions in place, bed in lowest position, call light in place.
[2020-03-04 16:05] VITALS: BP 110/25
[2020-03-04] MEDS ORDERED: VANCOMYCIN IV 1,000 MG in IV DEXTROSE 5% 250 ML IV ONE (16:30)
--- NOTE | 2020-03-04 18:00 | NUR ---
Oral care and trach care done. Nephro per Gtube tolerated. Repositioned in bed comfortably.
[2020-03-04] MEDS: CLOTRIMAZOLE 1% CREAM 30 GM TUBE TOP SCH (18:05)
[2020-03-04 20:30] VITALS: BP 122/30
[2020-03-04] MEDS: METRONIDAZOLE 500 MG/NS 100ML 500 MG in PREMIXED 1 EACH IV SCH (21:12)
[2020-03-05] VITALS (8 sets, daily range): BP systolic 103–161; BP diastolic 49–78
[2020-03-05] MEDS: ACETAMINOPHEN 650 MG/20.3 ML LIQUID UDC NG PRN ×2 (01:05→21:01)
[2020-03-05] MEDS: METRONIDAZOLE 500 MG/NS 100ML 500 MG in PREMIXED 1 EACH IV SCH ×3 (05:20→22:19)
[2020-03-05] MEDS: hydrALAZINE HCL 50 MG TABLET GT SCH ×3 (05:22→22:17)
[2020-03-05] MEDS: MINOXIDIL 2.5 MG TABLET GT SCH ×3 (05:23→22:18)
[2020-03-05] MEDS: LEVOTHYROXINE SODIUM 50 MCG TABLET GT SCH (05:25)
[2020-03-05] MEDS: SUCRALFATE 1 G/10 ML LIQUID UDC GT SCH ×4 (07:30→21:00)
[2020-03-05 08:00] LABS: CREATININE 4.3 mg/dL (0.6-1.3); MAGNESIUM 2.7 mg/dL (1.8-2.4); PHOSPHOROUS 2.4 mg/dL (2.5-4.9); POTASSIUM 5.2 mmol/L (3.5-5.1); VANCOMYCIN,RANDOM 15.2 ug/mL (18.0-26.0)
[2020-03-05 08:06] LABS: HEPATITIS B SURFACE AB Reactive (.); HEPATITIS B SURFACE AG Negative (Negative)
[2020-03-05 08:57] LABS: BASOPHILS # (AUTO) 0.1 K/uL (0.0-8.0); BASOPHILS % (AUTO) 0.6 % (0.0-2.0); EOSINOPHILS # (AUTO) 0.2 K/uL (0.0-0.7); EOSINOPHILS % (AUTO) 1.4 % (0.0-7.0); LYMPHOCYTES # (AUTO) 0.7 K/uL (20.0-40.0); LYMPHOCYTES % (AUTO) 4.9 % (20.5-51.5); MEAN CORPUSCULAR HEMOGLOBIN 27.1 uug (23.8-33.4); MEAN CORPUSCULAR HGB CONC 32 g/dL (32.5-36.3); MEAN CORPUSCULAR VOLUME 84.1 fL (73.0-96.2); MONOCYTES # (AUTO) 0.9 K/uL (2.0-10.0); MONOCYTES % (AUTO) 6.3 % (0.0-11.0); NEUTROPHILS # (AUTO) 12.6 K/uL (1.8-8.9); NEUTROPHILS % (AUTO) 86.8 % (38.5-71.5); PLATELET COUNT (AUTO) 267 K/uL (152-348); WHITE BLOOD COUNT (AUTO) 14.5 K/uL (3.6-10.2)
[2020-03-05] MEDS: LOSARTAN POTASSIUM 50 MG TABLET GT SCH ×2 (10:02→22:17)
[2020-03-05] MEDS: CHOLECALCIFEROL 1,000 UNIT TABLET GT SCH (10:02)
[2020-03-05] MEDS: PANTOPRAZOLE SODIUM 40 MG VIAL IV SCH ×2 (10:03→21:00)
[2020-03-05] MEDS: FOLIC ACID/VITAMIN B COMP W-C TABLET GT SCH (10:03)
[2020-03-05] MEDS: ZINC SULFATE 220 MG CAPSULE GT SCH (10:03)
[2020-03-05] MEDS: AMLODIPINE 10 MG TABLET GT SCH (10:03)
[2020-03-05] MEDS: ACIDOPHILUS/BULGARICUS CHEW TAB GT SCH ×2 (10:03→17:42)
[2020-03-05] MEDS: HYDROCODONE/APAP 5-325MG TABLET GT PRN (10:04)
--- NOTE | 2020-03-05 10:05 | NUR ---
Hemodialysis done. 1500 ccs output. Due meds given. Trach care and wound care completed. Wound GS/CS specimen sent to lab.
[2020-03-05] MEDS: SEVELAMER CARBONATE 800 MG POWD.PACK GT SCH ×3 (10:13→17:41)
[2020-03-05] MEDS: PROTEIN SUPPLEMENT (PROSTAT) 30 ML LIQUID GT SCH (10:13)
[2020-03-05] MEDS: MUPIROCIN 2% OINT 22 GM TUBE NS SCH ×2 (10:14→22:18)
[2020-03-05] MEDS: CLOTRIMAZOLE 1% CREAM 30 GM TUBE TOP SCH ×2 (10:14→17:42)
[2020-03-05] MEDS ORDERED: VANCOMYCIN IV 500 MG in IV DEXTROSE 5% 100 ML IV PRN (10:30)
[2020-03-05 10:32] LABS: RED BLOOD CELL COUNT(AUTO) 2.38 MIL/uL (4.06-5.63)
[2020-03-05 10:33] LABS: HEMOGLOBIN 6.5 g/dL (12.5-16.3)
[2020-03-05] MEDS: CEFTRIAXONE 1 G in IV DEXTROSE 5% 50 ML IV SCH (12:41)
[2020-03-05] MEDS: NEPRO 1000 ML GT PRN (12:45)
--- NOTE | 2020-03-05 16:39 | NUR ---
Hemoglobin: 6.5. Orders received. PRBC 1 unit started. monitored per protocol.
[2020-03-05 17:48] LABS: BAND % (MANUAL) 3 % (0-10); EOSINOPHILS % (MANUAL) 2 % (0-8); LYMPHOCYTES % (MANUAL) 5 % (20-40); MONOCYTES % (MANUAL) 4 % (2-10); NEUTROPHILS % (MANUAL) 86 % (42-75)
--- NOTE | 2020-03-05 18:55 | NUR ---
Delmy REEDER seen patient, plan is to have surgery tomorrow for right thigh wound. Called Delmy to clarify orders for consent. Waiting for call back. Endorsed for further followup.
--- NOTE | 2020-03-05 20:05 | NUR ---
Patient in bed .Awake syriac speaking.S/p Blood transfusion.Trach in place with shiley #[address] with 4LPM O2,saturating at 94%.Gt in place with Nepro running at 50cc/hr.No residual noted. HOB elevated.Aspiration precaution observed.Iv on right hand patent and intact.Iv ATB given.No a/r noted.Due meds given.Received report that patient is negative of covid. Patient made aware.will continue to monitor.
[2020-03-06 04:19] VITALS: BP 134/44
[2020-03-06] MEDS: METRONIDAZOLE 500 MG/NS 100ML 500 MG in PREMIXED 1 EACH IV SCH ×2 (05:10→13:27)
[2020-03-06] MEDS: hydrALAZINE HCL 50 MG TABLET GT SCH ×3 (06:00→22:00)
[2020-03-06] MEDS: MINOXIDIL 2.5 MG TABLET GT SCH ×3 (06:00→22:00)
[2020-03-06] MEDS: LEVOTHYROXINE SODIUM 50 MCG TABLET GT SCH (06:21)
[2020-03-06 07:02] LABS: BASOPHILS # (AUTO) 0.1 K/uL (0.0-8.0); BASOPHILS % (AUTO) 0.4 % (0.0-2.0); EOSINOPHILS # (AUTO) 0.2 K/uL (0.0-0.7); EOSINOPHILS % (AUTO) 1.3 % (0.0-7.0); HEMATOCRIT 23.9 % (36.7-47.1); HEMOGLOBIN 7.9 g/dL (12.5-16.3); LYMPHOCYTES # (AUTO) 0.7 K/uL (20.0-40.0); LYMPHOCYTES % (AUTO) 5.3 % (20.5-51.5); MEAN CORPUSCULAR HEMOGLOBIN 28.6 uug (23.8-33.4); MEAN CORPUSCULAR HGB CONC 33 g/dL (32.5-36.3); MEAN CORPUSCULAR VOLUME 86.8 fL (73.0-96.2); MONOCYTES # (AUTO) 0.8 K/uL (2.0-10.0); MONOCYTES % (AUTO) 6.8 % (0.0-11.0); NEUTROPHILS # (AUTO) 10.6 K/uL (1.8-8.9); NEUTROPHILS % (AUTO) 86.2 % (38.5-71.5); PLATELET COUNT (AUTO) 264 K/uL (152-348); RED BLOOD CELL COUNT(AUTO) 2.75 MIL/uL (4.06-5.63); WHITE BLOOD COUNT (AUTO) 12.3 K/uL (3.6-10.2)
[2020-03-06 07:16] LABS: CREATININE 3.4 mg/dL (0.6-1.3); MAGNESIUM 2.6 mg/dL (1.8-2.4); PHOSPHOROUS 2.4 mg/dL (2.5-4.9); POTASSIUM 4.6 mmol/L (3.5-5.1)
[2020-03-06] MEDS: SUCRALFATE 1 G/10 ML LIQUID UDC GT SCH ×4 (07:30→21:00)
[2020-03-06] MEDS: PROTEIN SUPPLEMENT (PROSTAT) 30 ML LIQUID GT SCH (08:00)
[2020-03-06] MEDS: PANTOPRAZOLE SODIUM 40 MG VIAL IV SCH ×2 (08:40→21:00)
[2020-03-06] MEDS: MUPIROCIN 2% OINT 22 GM TUBE NS SCH ×2 (08:47→21:00)
[2020-03-06] MEDS: CLOTRIMAZOLE 1% CREAM 30 GM TUBE TOP SCH ×2 (08:50→17:02)
[2020-03-06] MEDS: ACIDOPHILUS/BULGARICUS CHEW TAB GT SCH ×2 (09:00→17:01)
[2020-03-06] MEDS: ZINC SULFATE 220 MG CAPSULE GT SCH (09:00)
[2020-03-06] MEDS: AMLODIPINE 10 MG TABLET GT SCH (09:00)
[2020-03-06] MEDS: LOSARTAN POTASSIUM 50 MG TABLET GT SCH ×2 (09:00→21:00)
[2020-03-06] MEDS: FOLIC ACID/VITAMIN B COMP W-C TABLET GT SCH (09:00)
[2020-03-06] MEDS: CHOLECALCIFEROL 1,000 UNIT TABLET GT SCH (09:00)
[2020-03-06] MEDS: SEVELAMER CARBONATE 800 MG POWD.PACK GT SCH ×3 (09:00→17:31)
[2020-03-06 12:00] VITALS: BP 137/34
[2020-03-06] MEDS: CEFTRIAXONE 1 G in IV DEXTROSE 5% 50 ML IV SCH (12:12)
[2020-03-06 15:55] VITALS: BP 149/43
--- NOTE | 2020-03-06 16:15 | NUR ---
Patient seen and examined by Dr. Navarrete and per MD, discontinue NPO and may continue with GT feeding, with plan of debridement on Tuesday, patient made aware and agreeable.
--- NOTE | 2020-03-06 17:00 | NUR ---
Linn Flores SUPERVISOR MICROFILM DUPLICATING UNIT made aware regarding Dr. Navarrete's plan and ordered to resume GT feeding. GT feeding resumed, patient tolerated well. Patient remains alert, oriented x 4, not in any form of distress on trach. He denies any pain or discomfort. Will continue to monitor.
[2020-03-06 20:00] VITALS: BP 149/43
--- NOTE | 2020-03-06 20:00 | NUR ---
RECD PT IN BED, ALERT AND ORIENTED, NO VOICED COMPLAINTS ,TRACH TO MIDLINE, NO ACUTE RESP DISTRESS NOTED. NEEDS ATTENDED TO,.LEFT AV SHUNT PRESENT,IV SITE ON RT. HAND PATENT AND INTACT,COVID NEGATIVE.
[2020-03-06 20:21] VITALS: BP 175/69
[2020-03-07] VITALS: BP 175/69
--- NOTE | 2020-03-07 00:40 | NUR ---
PT HAD A BIG BOWEL MOVEMENT, NEEDED TO BE CLEANED, REPOSITIONED FOR COMFORT, MEDICATED W/ NORCO 1 TAB P.O. TO HELP RELIEVE GEN PAIN,
[2020-03-07] MEDS: METRONIDAZOLE 500 MG/NS 100ML 500 MG in PREMIXED 1 EACH IV SCH ×4 (01:48→22:02)
--- NOTE | 2020-03-07 02:45 | NUR ---
RELIEF AFFORDED, PT RESTING QUIETLY. KEPT DRY AND CLEAN, GT PATENT AND INTACT, NEPHRO INFUSING WELL AR ORDERED RATE, TOLERATED WELL BY PT.DUE MEDS GIVEN.SLEPT ON AND OFF.
[2020-03-07 04:21] VITALS: BP 166/41
[2020-03-07 06:07] LABS: BASOPHILS # (AUTO) 0.1 K/uL (0.0-8.0); BASOPHILS % (AUTO) 0.8 % (0.0-2.0); EOSINOPHILS # (AUTO) 0.1 K/uL (0.0-0.7); EOSINOPHILS % (AUTO) 1.4 % (0.0-7.0); HEMATOCRIT 24.5 % (36.7-47.1); HEMOGLOBIN 8.1 g/dL (12.5-16.3); LYMPHOCYTES # (AUTO) 0.8 K/uL (20.0-40.0); LYMPHOCYTES % (AUTO) 7.7 % (20.5-51.5); MEAN CORPUSCULAR HEMOGLOBIN 28.4 uug (23.8-33.4); MEAN CORPUSCULAR HGB CONC 33 g/dL (32.5-36.3); MEAN CORPUSCULAR VOLUME 86.1 fL (73.0-96.2); MONOCYTES # (AUTO) 0.7 K/uL (2.0-10.0); MONOCYTES % (AUTO) 6.6 % (0.0-11.0); NEUTROPHILS # (AUTO) 8.5 K/uL (1.8-8.9); NEUTROPHILS % (AUTO) 83.5 % (38.5-71.5); PLATELET COUNT (AUTO) 288 K/uL (152-348); RED BLOOD CELL COUNT(AUTO) 2.84 MIL/uL (4.06-5.63); WHITE BLOOD COUNT (AUTO) 10.2 K/uL (3.6-10.2)
--- NOTE | 2020-03-07 07:00 | NUR ---
FF MEDS.APRESOLINE,MINOXIDIL,FLAGYL IV AND SYNTHROID NOT SCANNED, DIALYSIS IN PROGRESS, ENDORSED TO AM SHIFT.
[2020-03-07 07:45] LABS: POTASSIUM 5.1 mmol/L (3.5-5.1)
[2020-03-07] MEDS: MINOXIDIL 2.5 MG TABLET GT SCH ×3 (07:58→22:04)
[2020-03-07] MEDS: LEVOTHYROXINE SODIUM 50 MCG TABLET GT SCH (07:59)
[2020-03-07 08:07] LABS: CREATININE 4.2 mg/dL (0.6-1.3); PHOSPHOROUS 2.9 mg/dL (2.5-4.9); VANCOMYCIN,RANDOM 10.7 ug/mL (18.0-26.0)
[2020-03-07] MEDS: ZINC SULFATE 220 MG CAPSULE GT SCH (10:02)
[2020-03-07] MEDS: ACIDOPHILUS/BULGARICUS CHEW TAB GT SCH ×2 (10:02→17:44)
[2020-03-07] MEDS: FOLIC ACID/VITAMIN B COMP W-C TABLET GT SCH (10:02)
[2020-03-07] MEDS: PANTOPRAZOLE SODIUM 40 MG VIAL IV SCH ×2 (10:02→20:47)
[2020-03-07] MEDS: SEVELAMER CARBONATE 800 MG POWD.PACK GT SCH ×3 (10:02→17:44)
[2020-03-07] MEDS: CHOLECALCIFEROL 1,000 UNIT TABLET GT SCH (10:02)
[2020-03-07] MEDS: PROTEIN SUPPLEMENT (PROSTAT) 30 ML LIQUID GT SCH (10:05)
[2020-03-07] MEDS: MUPIROCIN 2% OINT 22 GM TUBE NS SCH ×2 (10:07→21:00)
[2020-03-07] MEDS: SUCRALFATE 1 G/10 ML LIQUID UDC GT SCH ×4 (10:17→20:47)
[2020-03-07] MEDS: EPOETIN ALFA 20,000 UNIT/ML ML SQ SCH (10:38)
[2020-03-07] MEDS: ACETAMINOPHEN 650 MG/20.3 ML LIQUID UDC NG PRN (10:41)
[2020-03-07] MEDS: AMLODIPINE 10 MG TABLET GT SCH (10:58)
[2020-03-07] MEDS: hydrALAZINE HCL 50 MG TABLET GT SCH ×3 (10:58→22:03)
[2020-03-07] MEDS: LOSARTAN POTASSIUM 50 MG TABLET GT SCH ×2 (10:59→20:50)
[2020-03-07] MEDS: CLOTRIMAZOLE 1% CREAM 30 GM TUBE TOP SCH ×2 (11:01→17:45)
[2020-03-07] MEDS: CEFTRIAXONE 1 G in IV DEXTROSE 5% 50 ML IV SCH (11:14)
[2020-03-07 11:59] VITALS: BP 142/36
[2020-03-07] MEDS: ALPRAZOLAM 0.5 MG TABLET GT PRN (12:55)
[2020-03-07] MEDS ORDERED: VANCOMYCIN IV 1,000 MG in IV DEXTROSE 5% 250 ML IV ONE (15:00)
[2020-03-07 16:39] VITALS: BP 128/39
--- NOTE | 2020-03-07 18:18 | NUR ---
Patient remains alert, oriented x 4, not in any form of distress, on 4 L oxygen via trach mask. He denies any pain or discomfort at this time. Kept clean and comfortable. Turned and repositioned every 2 hours. Patient had hemodialysis today and 2500ml fluid removed. Needs attended to promptly. Call light and frequently used items placed within patient's reach. Patient seen by Linn Flores RURAL CARRIER ASSOCIATE, made aware that patient having blackish stool, stable vital signs with no new order. Right hand peripheral line in place and patent with no signs of infection. Will endorse accordingly.
[2020-03-07 20:00] VITALS: BP 142/58
[2020-03-07] MEDS ORDERED: PANTOPRAZOLE ORAL SUSPENSION 40 MG SUSPDR.PKT GT SCH (21:00)
[2020-03-08 04:00] VITALS: BP 146/57
[2020-03-08] MEDS: METRONIDAZOLE 500 MG/NS 100ML 500 MG in PREMIXED 1 EACH IV SCH ×3 (05:52→21:48)
[2020-03-08] MEDS: MINOXIDIL 2.5 MG TABLET GT SCH ×3 (05:53→21:39)
[2020-03-08] MEDS: hydrALAZINE HCL 50 MG TABLET GT SCH ×3 (05:54→21:38)
[2020-03-08] MEDS: SUCRALFATE 1 G/10 ML LIQUID UDC GT SCH ×4 (06:13→21:34)
[2020-03-08] MEDS: LEVOTHYROXINE SODIUM 50 MCG TABLET GT SCH (06:13)
[2020-03-08] MEDS: ACIDOPHILUS/BULGARICUS CHEW TAB GT SCH ×2 (09:50→16:22)
[2020-03-08] MEDS: ZINC SULFATE 220 MG CAPSULE GT SCH (09:50)
[2020-03-08] MEDS: CHOLECALCIFEROL 1,000 UNIT TABLET GT SCH (09:50)
[2020-03-08] MEDS: FOLIC ACID/VITAMIN B COMP W-C TABLET GT SCH (09:50)
[2020-03-08] MEDS: PANTOPRAZOLE ORAL SUSPENSION 40 MG SUSPDR.PKT GT SCH ×2 (09:50→21:33)
[2020-03-08] MEDS: CLOTRIMAZOLE 1% CREAM 30 GM TUBE TOP SCH ×2 (09:51→16:28)
[2020-03-08] MEDS: SEVELAMER CARBONATE 800 MG POWD.PACK GT SCH ×3 (09:52→16:28)
[2020-03-08] MEDS: AMLODIPINE 10 MG TABLET GT SCH (09:52)
[2020-03-08] MEDS: LOSARTAN POTASSIUM 50 MG TABLET GT SCH ×2 (09:52→21:39)
[2020-03-08] MEDS: PROTEIN SUPPLEMENT (PROSTAT) 30 ML LIQUID GT SCH (09:52)
[2020-03-08] MEDS: CEFTRIAXONE 1 G in IV DEXTROSE 5% 50 ML IV SCH (09:58)
[2020-03-08 10:36] LABS: BASOPHILS # (AUTO) 0.1 K/uL (0.0-8.0); BASOPHILS % (AUTO) 0.5 % (0.0-2.0); EOSINOPHILS # (AUTO) 0.2 K/uL (0.0-0.7); EOSINOPHILS % (AUTO) 1.5 % (0.0-7.0); HEMATOCRIT 24.1 % (36.7-47.1); HEMOGLOBIN 7.7 g/dL (12.5-16.3); LYMPHOCYTES # (AUTO) 0.8 K/uL (20.0-40.0); LYMPHOCYTES % (AUTO) 7.1 % (20.5-51.5); MEAN CORPUSCULAR HEMOGLOBIN 27.7 uug (23.8-33.4); MEAN CORPUSCULAR HGB CONC 32 g/dL (32.5-36.3); MEAN CORPUSCULAR VOLUME 86.1 fL (73.0-96.2); MONOCYTES # (AUTO) 0.8 K/uL (2.0-10.0); MONOCYTES % (AUTO) 7.4 % (0.0-11.0); NEUTROPHILS # (AUTO) 9.4 K/uL (1.8-8.9); NEUTROPHILS % (AUTO) 83.5 % (38.5-71.5); PLATELET COUNT (AUTO) 324 K/uL (152-348); WHITE BLOOD COUNT (AUTO) 11.2 K/uL (3.6-10.2)
[2020-03-08 10:39] LABS: CREATININE 3.4 mg/dL (0.6-1.3); MAGNESIUM 2.3 mg/dL (1.8-2.4); PHOSPHOROUS 2.4 mg/dL (2.5-4.9); POTASSIUM 4.3 mmol/L (3.5-5.1)
[2020-03-08 12:01] VITALS: BP 138/36
[2020-03-08] MEDS: NEPRO 1000 ML GT PRN (13:37)
[2020-03-08 16:05] VITALS: BP 135/39
[2020-03-08 20:51] VITALS: BP 124/30
[2020-03-09 04:22] VITALS: BP 125/32
[2020-03-09] MEDS: MINOXIDIL 2.5 MG TABLET GT SCH ×2 (06:42→13:37)
[2020-03-09] MEDS: LEVOTHYROXINE SODIUM 50 MCG TABLET GT SCH (06:42)
[2020-03-09] MEDS: hydrALAZINE HCL 50 MG TABLET GT SCH ×3 (06:43→23:55)
[2020-03-09] MEDS: SUCRALFATE 1 G/10 ML LIQUID UDC GT SCH ×4 (06:43→23:51)
[2020-03-09] MEDS: METRONIDAZOLE 500 MG/NS 100ML 500 MG in PREMIXED 1 EACH IV SCH ×2 (06:48→17:34)
[2020-03-09 08:24] LABS: MAGNESIUM 2.4 mg/dL (1.8-2.4); PHOSPHOROUS 2.8 mg/dL (2.5-4.9); POTASSIUM 4.5 mmol/L (3.5-5.1)
[2020-03-09 09:08] LABS: BASOPHILS # (AUTO) 0.1 K/uL (0.0-8.0); BASOPHILS % (AUTO) 1.1 % (0.0-2.0); EOSINOPHILS # (AUTO) 0.2 K/uL (0.0-0.7); EOSINOPHILS % (AUTO) 2.4 % (0.0-7.0); HEMATOCRIT 23.6 % (36.7-47.1); HEMOGLOBIN 7.9 g/dL (12.5-16.3); LYMPHOCYTES # (AUTO) 0.9 K/uL (20.0-40.0); LYMPHOCYTES % (AUTO) 9.9 % (20.5-51.5); MEAN CORPUSCULAR HEMOGLOBIN 28.8 uug (23.8-33.4); MEAN CORPUSCULAR HGB CONC 34 g/dL (32.5-36.3); MEAN CORPUSCULAR VOLUME 86.1 fL (73.0-96.2); MONOCYTES # (AUTO) 0.7 K/uL (2.0-10.0); MONOCYTES % (AUTO) 7.7 % (0.0-11.0); NEUTROPHILS # (AUTO) 7.4 K/uL (1.8-8.9); NEUTROPHILS % (AUTO) 78.9 % (38.5-71.5); PLATELET COUNT (AUTO) 355 K/uL (152-348); RED BLOOD CELL COUNT(AUTO) 2.74 MIL/uL (4.06-5.63); WHITE BLOOD COUNT (AUTO) 9.3 K/uL (3.6-10.2)
[2020-03-09] MEDS: PROTEIN SUPPLEMENT (PROSTAT) 30 ML LIQUID GT SCH (11:13)
[2020-03-09] MEDS: ACIDOPHILUS/BULGARICUS CHEW TAB GT SCH ×2 (11:21→17:34)
[2020-03-09] MEDS: FOLIC ACID/VITAMIN B COMP W-C TABLET GT SCH (11:21)
[2020-03-09] MEDS: CHOLECALCIFEROL 1,000 UNIT TABLET GT SCH (11:22)
[2020-03-09] MEDS: PANTOPRAZOLE ORAL SUSPENSION 40 MG SUSPDR.PKT GT SCH ×2 (11:22→23:52)
[2020-03-09] MEDS: AMLODIPINE 10 MG TABLET GT SCH (11:22)
[2020-03-09] MEDS: ZINC SULFATE 220 MG CAPSULE GT SCH (11:22)
[2020-03-09] MEDS: LOSARTAN POTASSIUM 50 MG TABLET GT SCH (11:22)
[2020-03-09 11:23] VITALS: BP 117/55
[2020-03-09] MEDS: CLOTRIMAZOLE 1% CREAM 30 GM TUBE TOP SCH ×2 (11:23→17:35)
[2020-03-09] MEDS: SEVELAMER CARBONATE 800 MG POWD.PACK GT SCH ×3 (11:35→17:35)
[2020-03-09] MEDS: CEFTRIAXONE 1 G in IV DEXTROSE 5% 50 ML IV SCH (11:56)
[2020-03-09 20:00] VITALS: BP 139/67
[2020-03-10] MEDS: HYDROCODONE/APAP 5-325MG TABLET GT PRN (00:08)
[2020-03-10] MEDS: LOSARTAN POTASSIUM 50 MG TABLET GT SCH ×3 (00:24→23:25)
[2020-03-10] MEDS: MINOXIDIL 2.5 MG TABLET GT SCH ×4 (00:24→23:26)
[2020-03-10 04:00] VITALS: BP 131/58
[2020-03-10] MEDS: hydrALAZINE HCL 50 MG TABLET GT SCH ×3 (06:00→23:29)
[2020-03-10] MEDS: METRONIDAZOLE 500 MG/NS 100ML 500 MG in PREMIXED 1 EACH IV SCH ×4 (06:51→16:14)
[2020-03-10] MEDS: LEVOTHYROXINE SODIUM 50 MCG TABLET GT SCH (07:00)
[2020-03-10 07:19] LABS: BASOPHILS # (AUTO) 0.1 K/uL (0.0-8.0); BASOPHILS % (AUTO) 1.3 % (0.0-2.0); EOSINOPHILS # (AUTO) 0.2 K/uL (0.0-0.7); EOSINOPHILS % (AUTO) 1.9 % (0.0-7.0); HEMATOCRIT 22.5 % (36.7-47.1); HEMOGLOBIN 7.5 g/dL (12.5-16.3); LYMPHOCYTES # (AUTO) 0.8 K/uL (20.0-40.0); LYMPHOCYTES % (AUTO) 8.7 % (20.5-51.5); MEAN CORPUSCULAR HEMOGLOBIN 28.8 uug (23.8-33.4); MEAN CORPUSCULAR HGB CONC 33 g/dL (32.5-36.3); MEAN CORPUSCULAR VOLUME 86.5 fL (73.0-96.2); MONOCYTES # (AUTO) 0.8 K/uL (2.0-10.0); MONOCYTES % (AUTO) 8.8 % (0.0-11.0); NEUTROPHILS # (AUTO) 7.1 K/uL (1.8-8.9); NEUTROPHILS % (AUTO) 79.3 % (38.5-71.5); PLATELET COUNT (AUTO) 376 K/uL (152-348)
[2020-03-10 07:21] LABS: CREATININE 3.4 mg/dL (0.6-1.3); MAGNESIUM 2.5 mg/dL (1.8-2.4); POTASSIUM 4.2 mmol/L (3.5-5.1)
[2020-03-10] MEDS: SUCRALFATE 1 G/10 ML LIQUID UDC GT SCH ×4 (07:30→23:24)
[2020-03-10] MEDS: PROTEIN SUPPLEMENT (PROSTAT) 30 ML LIQUID GT SCH (08:00)
[2020-03-10] MEDS ORDERED: AMIKACIN 500 MG in IV DEXTROSE 5% 100 ML IV SCH (08:30)
[2020-03-10] MEDS: ZINC SULFATE 220 MG CAPSULE GT SCH (09:00)
[2020-03-10] MEDS: PANTOPRAZOLE ORAL SUSPENSION 40 MG SUSPDR.PKT GT SCH ×2 (09:00→21:00)
[2020-03-10] MEDS: AMLODIPINE 10 MG TABLET GT SCH (09:00)
[2020-03-10] MEDS: CHOLECALCIFEROL 1,000 UNIT TABLET GT SCH (09:00)
[2020-03-10] MEDS: ACIDOPHILUS/BULGARICUS CHEW TAB GT SCH ×2 (09:00→17:22)
[2020-03-10] MEDS ORDERED: DOSING PER PHARMACY-AMIKACIN IV IV PRN (09:00)
[2020-03-10] MEDS: SEVELAMER CARBONATE 800 MG POWD.PACK GT SCH ×3 (09:00→17:22)
[2020-03-10] MEDS: FOLIC ACID/VITAMIN B COMP W-C TABLET GT SCH (09:00)
[2020-03-10] MEDS: CLOTRIMAZOLE 1% CREAM 30 GM TUBE TOP SCH ×2 (10:36→17:22)
[2020-03-10] MEDS ORDERED: AMIKACIN 400 MG in IV DEXTROSE 5% 100 ML IV ONE (11:00)
--- NOTE | 2020-03-10 11:00 | NUR ---
PT left unit for surgery for debridement for infected left inner thigh wound. Consent received by PT. Gave report to OR nurse. PT in bed, awake AO X 4/ Safety measures provided, call light within reach. Procedure done by Dr. Navarrete.
[2020-03-10] MEDS ORDERED: BACITRACIN/POLYMYXIN B OINT 15 GM TUBE ONE (11:32)
[2020-03-10] MEDS ORDERED: SEVOFLURANE 250 ML BOTTLE IH ONE (11:39)
[2020-03-10] MEDS ORDERED: ETOMIDATE 20 MG/10 ML VIAL IV ONE (11:39)
[2020-03-10] MEDS ORDERED: FENTANYL CITRATE 100 MCG/2 ML AMPUL ONE (12:05)
--- NOTE | 2020-03-10 13:50 | NUR ---
PT came back to unit. Arrived in bed, awake AO X 4. PT is cooperative and happy. Report received from recovery nurse. Continue orders. Will continue to monitor.
[2020-03-10] MEDS: CEFTRIAXONE 1 G in IV DEXTROSE 5% 50 ML IV SCH (15:00)
[2020-03-10 17:42] VITALS: BP 143/85
--- NOTE | 2020-03-10 20:00 | NUR ---
IN BED, QUIETLY RESTING,NO VOICED COMPLAINTS, ALERT ,ORIENTEDX 4,TRACH AT MIDLINE. NO ACUTE RESP DISTRESS NOTED,AV SHUNTON LEFT UPPER ARM INTACT,IV SITE ON RT.DARSHAN PATENT AND NO SIGNS AND SYMPTOMS OF INFILTRATION.DUE MEDS GIVEN. GTUBE FUNCTIONING WELL NEPHRO RUNNING AT 50 ML/ HR, TOLERATED WELL BY PT, RESIDUAL CHECK DONE,4ML. NOTED.SLEPT ON AND OFF SUCTIONED AT TIMES,FOR SCANT AMOUNT OF WHITE SECTRETIONS.
[2020-03-10 20:35] VITALS: BP 139/53
[2020-03-10 23:14] VITALS: BP 139/53
[2020-03-11 04:20] VITALS: BP 132/31
[2020-03-11] MEDS: MINOXIDIL 2.5 MG TABLET GT SCH ×3 (06:00→23:10)
[2020-03-11] MEDS: hydrALAZINE HCL 50 MG TABLET GT SCH ×3 (06:00→23:10)
[2020-03-11] MEDS: LOSARTAN POTASSIUM 50 MG TABLET GT SCH ×3 (06:11→21:04)
[2020-03-11] MEDS: LEVOTHYROXINE SODIUM 50 MCG TABLET GT SCH (06:13)
[2020-03-11] MEDS: SUCRALFATE 1 G/10 ML LIQUID UDC GT SCH ×4 (06:18→21:00)
--- NOTE | 2020-03-11 07:30 | NUR ---
Received report from production supervisor off shift. Pt awake in bed, oriented, able to express needs. No signs of acute distress, no complaints of discomfort or pain at this time. Call light and belongings within reach. Safety precautions in place. Will continue to monitor.
[2020-03-11 07:52] LABS: BASOPHILS # (AUTO) 0.1 K/uL (0.0-8.0); BASOPHILS % (AUTO) 0.5 % (0.0-2.0); EOSINOPHILS # (AUTO) 0.2 K/uL (0.0-0.7); EOSINOPHILS % (AUTO) 1.2 % (0.0-7.0); LYMPHOCYTES # (AUTO) 0.9 K/uL (20.0-40.0); LYMPHOCYTES % (AUTO) 6.3 % (20.5-51.5); MEAN CORPUSCULAR HEMOGLOBIN 28.2 uug (23.8-33.4); MEAN CORPUSCULAR HGB CONC 33 g/dL (32.5-36.3); MEAN CORPUSCULAR VOLUME 86.6 fL (73.0-96.2); MONOCYTES # (AUTO) 0.8 K/uL (2.0-10.0); MONOCYTES % (AUTO) 6.1 % (0.0-11.0); NEUTROPHILS # (AUTO) 11.8 K/uL (1.8-8.9); NEUTROPHILS % (AUTO) 85.9 % (38.5-71.5); PLATELET COUNT (AUTO) 423 K/uL (152-348); RED BLOOD CELL COUNT(AUTO) 2.54 MIL/uL (4.06-5.63); WHITE BLOOD COUNT (AUTO) 13.8 K/uL (3.6-10.2)
[2020-03-11 07:59] LABS: MAGNESIUM 2.4 mg/dL (1.8-2.4); PHOSPHOROUS 3.4 mg/dL (2.5-4.9); POTASSIUM 4.6 mmol/L (3.5-5.1)
[2020-03-11 08:04] LABS: HEMOGLOBIN 7.2 g/dL (12.5-16.3)
[2020-03-11] MEDS: PROTEIN SUPPLEMENT (PROSTAT) 30 ML LIQUID GT SCH (09:40)
[2020-03-11] MEDS: PANTOPRAZOLE ORAL SUSPENSION 40 MG SUSPDR.PKT GT SCH ×2 (09:41→21:04)
[2020-03-11] MEDS: CHOLECALCIFEROL 1,000 UNIT TABLET GT SCH (09:41)
[2020-03-11] MEDS: ACIDOPHILUS/BULGARICUS CHEW TAB GT SCH ×2 (09:42→19:03)
[2020-03-11] MEDS: ZINC SULFATE 220 MG CAPSULE GT SCH (09:42)
[2020-03-11] MEDS: FOLIC ACID/VITAMIN B COMP W-C TABLET GT SCH (09:42)
[2020-03-11] MEDS: SEVELAMER CARBONATE 800 MG POWD.PACK GT SCH ×3 (09:43→19:08)
[2020-03-11] MEDS: AMLODIPINE 10 MG TABLET GT SCH (09:45)
[2020-03-11 11:30] VITALS: BP 160/53
[2020-03-11] MEDS: CEFTRIAXONE 1 G in IV DEXTROSE 5% 50 ML IV SCH (12:41)
--- NOTE | 2020-03-11 14:30 | NUR ---
1400 Hydralizine, 1400 Minoxidil, and 1300 Renvela held d/t pt receiving dialysis.
[2020-03-11 16:38] VITALS: BP 138/47
[2020-03-11] MEDS: CLOTRIMAZOLE 1% CREAM 30 GM TUBE TOP SCH ×2 (19:06→19:07)
[2020-03-11 20:03] VITALS: BP 161/47
--- NOTE | 2020-03-11 20:10 | NUR ---
Patient in bed. Awakeand alertx4 No S/s of acute distress at this time. Trach in place with shiley #[address] with 3LPM O2. Gt in place with Nepro running at 50cc/hr with 10mL residual noted. HOB elevated. Right upper arm IV patent and intact. Left arm Fistula intact with bruit present. Safety measures and aspiration precautions in place.
--- NOTE | 2020-03-11 20:35 | NUR ---
EOSS: Pt resting in bed. No signs of acute distress, no SOB. No complaints of pain or discomfort at this time. No acute changes during shift. GT patent, running Nephro at 50 cc/hr. LISA 20g saline lock patent throughout shift. Pt received dialysis during shift. Call light and belongings within reach, safety and fall precautions maintained throughout shift. Addendum: 03/11/20 at 2040 by SUN HOWARD RN RN Will endorse care to office machine installer.
--- NOTE | 2020-03-11 21:03 | NUR ---
Sucralfate held due to late administration from previous shift, too soon to give.
[2020-03-11] MEDS ORDERED: VANCOMYCIN IV 500 MG in IV DEXTROSE 5% 100 ML IV ONE (22:00)
[2020-03-12 04:03] VITALS: BP 144/76
[2020-03-12] MEDS: SUCRALFATE 1 G/10 ML LIQUID UDC GT SCH ×2 (06:35→10:49)
[2020-03-12] MEDS: MINOXIDIL 2.5 MG TABLET GT SCH (06:35)
[2020-03-12] MEDS: LEVOTHYROXINE SODIUM 50 MCG TABLET GT SCH (06:35)
[2020-03-12] MEDS: hydrALAZINE HCL 50 MG TABLET GT SCH (06:35)
--- NOTE | 2020-03-12 07:00 | NUR ---
Received report from police shift commander. Pt awake in bed, oriented, able to express needs. No signs of acute distress, no complaints of discomfort or pain at this time. Call light and belongings within reach. Safety precautions in place. Will continue to monitor.
[2020-03-12 08:07] LABS: BASOPHILS # (AUTO) 0.1 K/uL (0.0-8.0); BASOPHILS % (AUTO) 0.5 % (0.0-2.0); EOSINOPHILS # (AUTO) 0.1 K/uL (0.0-0.7); EOSINOPHILS % (AUTO) 0.7 % (0.0-7.0); HEMATOCRIT 22.3 % (36.7-47.1); LYMPHOCYTES # (AUTO) 0.7 K/uL (20.0-40.0); LYMPHOCYTES % (AUTO) 5.9 % (20.5-51.5); MEAN CORPUSCULAR HEMOGLOBIN 28.4 uug (23.8-33.4); MEAN CORPUSCULAR HGB CONC 32 g/dL (32.5-36.3); MEAN CORPUSCULAR VOLUME 87.8 fL (73.0-96.2); MONOCYTES # (AUTO) 0.8 K/uL (2.0-10.0); NEUTROPHILS # (AUTO) 10.2 K/uL (1.8-8.9); NEUTROPHILS % (AUTO) 85.9 % (38.5-71.5); PLATELET COUNT (AUTO) 390 K/uL (152-348); RED BLOOD CELL COUNT(AUTO) 2.53 MIL/uL (4.06-5.63); WHITE BLOOD COUNT (AUTO) 11.9 K/uL (3.6-10.2)
[2020-03-12] MEDS: FOLIC ACID/VITAMIN B COMP W-C TABLET GT SCH (08:19)
[2020-03-12] MEDS: ACIDOPHILUS/BULGARICUS CHEW TAB GT SCH (08:20)
[2020-03-12] MEDS: ZINC SULFATE 220 MG CAPSULE GT SCH (08:20)
[2020-03-12] MEDS: CHOLECALCIFEROL 1,000 UNIT TABLET GT SCH (08:20)
[2020-03-12] MEDS: LOSARTAN POTASSIUM 50 MG TABLET GT SCH (08:20)
[2020-03-12] MEDS: AMLODIPINE 10 MG TABLET GT SCH (08:20)
[2020-03-12] MEDS: PROTEIN SUPPLEMENT (PROSTAT) 30 ML LIQUID GT SCH (08:26)
[2020-03-12] MEDS: CLOTRIMAZOLE 1% CREAM 30 GM TUBE TOP SCH (08:26)
[2020-03-12] MEDS: SEVELAMER CARBONATE 800 MG POWD.PACK GT SCH ×2 (08:26→12:11)
[2020-03-12 08:39] LABS: CREATININE 3.1 mg/dL (0.6-1.3); MAGNESIUM 2.3 mg/dL (1.8-2.4); PHOSPHOROUS 2.5 mg/dL (2.5-4.9); POTASSIUM 4.1 mmol/L (3.5-5.1)
[2020-03-12] MEDS: PANTOPRAZOLE ORAL SUSPENSION 40 MG SUSPDR.PKT GT SCH (09:23)
[2020-03-12 09:42] LABS: HEMOGLOBIN 7.2 g/dL (12.5-16.3)
[2020-03-12] MEDS: CEFTRIAXONE 1 G in IV DEXTROSE 5% 50 ML IV SCH (10:23)
[2020-03-12] MEDS ORDERED: CEFT1VIA15 IV (11:37)
[2020-03-12 12:00] VITALS: BP 134/39
--- NOTE | 2020-03-12 14:12 | NUR ---
dc orders received noted and carried out.dc instruction and rn report given to the intermediate.pt left the facility via ambulances in stable condition.
--- NOTE | 2020-03-12 14:39 | NUR ---
8:50am This SW received a call from patient's Ayah [phone] regarding patient and patient's status. This SW to follow-up with corresponding SW Mike Perdue for an update regarding this patient. Patient's Ayah resides in [place], this SW asked patient's to call back at a later time for SW to follow-up. SW remains available for all needs regarding this patient.
--- NOTE | 2020-03-12 14:41 | NUR ---
12:50pm This SW received corresponding information regarding patient from EUGENIA Perdue. EUGENIA Mckeon informed this SW that the patient will be discharged back to Center at [address] [address] today 03/12/2020. Plan: EUGENIA to provide this update to patient's Ayah when she calls this SW. SW remains available for all needs regarding this patient.
--- NOTE | 2020-03-12 14:44 | NUR ---
2:45pm SW received an international call from patient's Ayah [phone], SW provided information regarding patient's discharge back [place] [address]. Patient's Ayah thanked this SW for this information. Ayah expressed that she became anxious that the patient would not be able to return to [facility] facility. SW remains available for all needs regarding this patient.
== END 2020-03-12 14:14 | DRG 981 ==
LOC: ER 16:40 → TELE3 21:22 → MEDSURG3 03-03 12:14
PROVIDERS: ADMIT Nurse Practitioner Acute Care; ATTEND Nurse Practitioner Acute Care
PROC: 30233N1 Transfusion of Nonautologous Red Blood Cells into Peripheral Vein, Percutaneous Approach (ICD-10-PCS; principal; 2020-02-27)
PROC: 5A1D70Z Performance of Urinary Filtration, Intermittent, Less than 6 Hours Per Day (ICD-10-PCS; 2020-02-28)
PROC: 0KBR0ZZ Excision of Left Upper Leg Muscle, Open Approach (ICD-10-PCS; 2020-03-10)
DX: K92.2 Gastrointestinal hemorrhage, unspecified (principal); I21.A1 Myocardial infarction type 2; I50.33 Acute on chronic diastolic (congestive) heart failure; N18.6 End stage renal disease; R53.2 Functional quadriplegia; G92 Toxic encephalopathy; D62 Acute posthemorrhagic anemia; I13.2 Hypertensive heart and chronic kidney disease with heart failure and with stage 5 chronic kidney disease, or end stage renal disease; G61.0 Guillain-Barre syndrome; J96.10 Chronic respiratory failure, unspecified whether with hypoxia or hypercapnia; L02.416 Cutaneous abscess of left lower limb; D68.69 Other thrombophilia; Z99.11 Dependence on respirator [ventilator] status; E44.0 Moderate protein-calorie malnutrition; E11.22 Type 2 diabetes mellitus with diabetic chronic kidney disease; Z99.2 Dependence on renal dialysis; D63.1 Anemia in chronic kidney disease; E87.6 Hypokalemia; E61.1 Iron deficiency; I25.10 Atherosclerotic heart disease of native coronary artery without angina pectoris; I48.91 Unspecified atrial fibrillation; M89.9 Disorder of bone, unspecified; R13.10 Dysphagia, unspecified; E03.9 Hypothyroidism, unspecified; E88.09 Other disorders of plasma-protein metabolism, not elsewhere classified; Z68.22 Body mass index [BMI] 22.0-22.9, adult; Z93.0 Tracheostomy status; Z86.74 Personal history of sudden cardiac arrest; S71.102A Unspecified open wound, left thigh, initial encounter; X58.XXXA Exposure to other specified factors, initial encounter; Y93.9 Activity, unspecified; Y92.89 Other specified places as the place of occurrence of the external cause; B96.4 Proteus (mirabilis) (morganii) as the cause of diseases classified elsewhere; B96.1 Klebsiella pneumoniae [K. pneumoniae] as the cause of diseases classified elsewhere; Z93.1 Gastrostomy status; K29.70 Gastritis, unspecified, without bleeding; K64.8 Other hemorrhoids; I25.2 Old myocardial infarction; Z87.891 Personal history of nicotine dependence; Z87.01 Personal history of pneumonia (recurrent); Z86.16 Personal history of COVID-19; Z20.822 Contact with and (suspected) exposure to COVID-19
CPT/HCPCS: 36415; 70030-TC; 71045; 83550; 83605; 83690; 83735; 84100; 84443; 85025; 85651; 85730; 86706; 86850; 86900; 86901; 86920; 87040; 87070; 87077; 87086; 87340; 88312-TC; 90937; 93005; A4217; A4649; A4663; C9113; G0378; J0278; J0696; J0885; J3010; J3370; J3480; J3490; J7030; J7040; J7050; J7060; P9016-BL; P9021; U0003

== ENCOUNTER 2020-03-14 22:38 | Inpatient (IN) | payer MEDICARE, OTHER ==
[~2020-03-14] VITALS: Ht 165.1 cm; Wt 61.4 kg
[~2020-03-14 22:38] MED LIST changes: +CEFT1VIA15 IV
--- NOTE | 2020-03-14 22:45 | NUR ---
Dr. Abreu at bedside for MSE.
[2020-03-14] MEDS ORDERED: NITROGLYCERIN OINT 1 GM PACKET TP ONE ×2 (23:00→23:10)
[2020-03-14] MEDS ORDERED: FUROSEMIDE 40 MG/4 ML VIAL IV ONE (23:00)
[2020-03-14] MEDS ORDERED: FUROSEMIDE 40 MG/4 ML VIAL ONE (23:10)
[2020-03-14 23:28] LABS: BASOPHILS # (AUTO) 0.1 K/uL (0.0-8.0); BASOPHILS % (AUTO) 0.9 % (0.0-2.0); EOSINOPHILS # (AUTO) 0.3 K/uL (0.0-0.7); LYMPHOCYTES # (AUTO) 0.6 K/uL (20.0-40.0); MONOCYTES # (AUTO) 0.6 K/uL (2.0-10.0); NEUTROPHILS # (AUTO) 9.7 K/uL (1.8-8.9); WHITE BLOOD COUNT (AUTO) 11.3 K/uL (3.6-10.2)
--- NOTE | 2020-03-14 23:29 | NUR ---
Pt out of ER for CT.
[2020-03-14 23:30] LABS: EOSINOPHILS % (AUTO) 2.7 % (0.0-7.0); HEMATOCRIT 21.4 % (36.7-47.1); LYMPHOCYTES % (AUTO) 5.3 % (20.5-51.5); MEAN CORPUSCULAR HEMOGLOBIN 26.5 uug (23.8-33.4); MEAN CORPUSCULAR HGB CONC 30 g/dL (32.5-36.3); MEAN CORPUSCULAR VOLUME 87.3 fL (73.0-96.2); MONOCYTES % (AUTO) 5.5 % (0.0-11.0); NEUTROPHILS % (AUTO) 85.6 % (38.5-71.5); PLATELET COUNT (AUTO) 359 K/uL (152-348)
[2020-03-14 23:32] LABS: RED BLOOD CELL COUNT(AUTO) 2.45 MIL/uL (4.06-5.63)
[2020-03-14 23:33] LABS: CREATININE 4.8 mg/dL (0.6-1.3)
[2020-03-14 23:35] LABS: HEMOGLOBIN 6.5 g/dL (12.5-16.3)
--- NOTE | 2020-03-14 23:39 | NUR ---
Patient back to ER from CT.
[2020-03-14 23:45] LABS: BILIRUBIN,DIRECT 0.1 mg/dL (0.0-0.2); BILIRUBIN,TOTAL 0.5 mg/dL (0.2-1.0); MAGNESIUM 2.8 mg/dL (1.8-2.4); PHOSPHOROUS 4.1 mg/dL (2.5-4.9); TOTAL PROTEIN, SERUM 7.8 g/dL (6.4-8.2)
[2020-03-15] VITALS (14 sets, daily range): BP systolic 137–178; BP diastolic 24–53
--- NOTE | 2020-03-15 00:19 | NUR ---
Called [facility] to page Catalino Delaney DNP.
[2020-03-15 00:21] LABS: *OCCULT BLOOD STOOL POSITIVE (NEGATIVE)
--- NOTE | 2020-03-15 00:24 | NUR ---
Dr. Abreu on panel call with Catalino Delaney DNP. Patient accepted for admission to [facility], diagnosis Upper GI Bleed.
[2020-03-15] MEDS ORDERED: ACETAMINOPHEN 325 MG TABLET PO PRN (00:30)
[2020-03-15] MEDS ORDERED: TEMAZEPAM 15 MG CAPSULE GT PRN (00:30)
[2020-03-15] MEDS ORDERED: HYDROCODONE/APAP 10-325 MG TABLET PO PRN (00:30)
[2020-03-15] MEDS ORDERED: TEMAZEPAM 15 MG CAPSULE PO PRN (00:30)
[2020-03-15] MEDS ORDERED: MAGNESIUM HYDROXIDE 30 ML LIQUID UDC PO PRN (00:30)
[2020-03-15] MEDS ORDERED: ONDANSETRON 4 MG/2 ML VIAL IV PRN (00:30)
[2020-03-15] MEDS ORDERED: Z GUARD REMEDY PASTE 57 GM TUBE TOP PRN (00:30)
[2020-03-15] MEDS ORDERED: HYDROCODONE/APAP 5-325MG TABLET PO PRN (00:30)
--- NOTE | 2020-03-15 01:12 | NUR ---
Called [facility] to page Dr. Aaron.
--- NOTE | 2020-03-15 01:15 | NUR ---
Dr. Abreu speaking with Dr. Aaron.
--- NOTE | 2020-03-15 01:23 | NUR ---
Report given to Zuleika ALEXANDRA Tele
--- NOTE | 2020-03-15 01:23 | NUR ---
Bing crandall in [facility] - 03/15/20 at 0238 by LACEY Report given to Daily Howell
[2020-03-15] MEDS ORDERED: HYDROCODONE/APAP 5-325MG TABLET GT PRN (01:39)
[2020-03-15] MEDS: PANTOPRAZOLE SODIUM 40 MG VIAL IV SCH ×3 (02:30→21:30)
[2020-03-15 02:33] LABS: EOSINOPHILS % (MANUAL) 4 % (0-8); LYMPHOCYTES % (MANUAL) 2 % (20-40); METAMYELOCYTES % 1 % (0-1); MONOCYTES % (MANUAL) 2 % (2-10); NEUTROPHILS % (MANUAL) 91 % (42-75)
--- NOTE | 2020-03-15 03:42 | NUR ---
Pt arrived in the unit at 0200 via gurney. AAO x3. On 3L trach collar. No acute distress noted. Pt is a dialysis pt with left AV shunt. IV on right upper arm. Pertinent assessment done. Oriented pt in room. Hemoglobin 6.5, with order to transfuse RBC, running at this time. Initial BP was elevated 178/24, notified Rhett with order to monitor as pt is asymptomatic. Consecutive BPs lower than initial. No adverse reactions noted. Pt has G-tube, patent and intact. Safety measures maintained. Call light and personal items within reach. Will continue to monitor.
--- NOTE | 2020-03-15 06:07 | NUR ---
1 unit PRBC infused. No hypertensive crisis. No adverse reactions. Pt asymptomatic. Denies dizziness, CP, SOB. Will endorse accordingly.
[2020-03-15 08:46] LABS: HEMATOCRIT 24.9 % (36.7-47.1); HEMOGLOBIN 7.9 g/dL (12.5-16.3)
--- NOTE | 2020-03-15 08:46 | NUR ---
spoke to rg lozano for another unit of blood, per lab H&H stat, ordered, charge nurse is aware
[2020-03-15] MEDS: NEPRO 1000 ML GT PRN (10:15)
[2020-03-15] MEDS: HYDROCODONE/APAP 10-325 MG TABLET GT PRN (11:18)
[2020-03-15] MEDS ORDERED: hydrALAZINE HCL 50 MG TABLET GT SCH (11:30)
[2020-03-15] MEDS ORDERED: SIMETHICONE 80 MG TAB.CHEW GT PRN (11:30)
[2020-03-15] MEDS: SUCRALFATE 1 G/10 ML LIQUID UDC GT SCH ×3 (11:46→21:30)
[2020-03-15] MEDS: FOLIC ACID/VITAMIN B COMP W-C TABLET GT SCH (11:46)
[2020-03-15] MEDS: LOSARTAN POTASSIUM 50 MG TABLET GT SCH ×2 (11:47→17:01)
[2020-03-15] MEDS: MINOXIDIL 2.5 MG TABLET GT SCH ×2 (11:47→18:34)
[2020-03-15] MEDS: CHOLECALCIFEROL 1,000 UNIT TABLET GT SCH (11:47)
[2020-03-15] MEDS: AMLODIPINE 10 MG TABLET GT SCH (11:47)
[2020-03-15] MEDS: ZINC SULFATE 220 MG CAPSULE GT SCH (11:55)
[2020-03-15] MEDS ORDERED: VANCOMYCIN IV 500 MG in IV DEXTROSE 5% 100 ML IV PRN (12:00)
--- NOTE | 2020-03-15 12:00 | NUR ---
second bag of PRBC was not infused patient hemoglobin 7.9, charge nurse, aware
[2020-03-15] MEDS: CEFTRIAXONE 1 G in IV DEXTROSE 5% 50 ML IV SCH (12:15)
[2020-03-15] MEDS: hydrALAZINE HCL 50 MG TABLET GT SCH ×2 (12:37→22:00)
[2020-03-15] MEDS ORDERED: VANCOMYCIN IV 1,000 MG in IV DEXTROSE 5% 250 ML IV ONE (13:00)
[2020-03-15] MEDS: SEVELAMER CARBONATE 800 MG POWD.PACK GT SCH ×2 (13:03→17:03)
[2020-03-15] MEDS: ALPRAZOLAM 0.5 MG TABLET GT PRN (14:19)
--- NOTE | 2020-03-15 15:05 | NUR ---
patient refused dialysis today, stating he wants to go to [facility], want to walk to [place], pull his g-tube, and stated that he wants to , however denied having plan, MD Barnett made aware, Dr Jain consult in place, made call to dr Jain and made him aware about consult, continue to monitor closely
--- NOTE | 2020-03-15 15:07 | NUR ---
charge nurse on duty is aware about patient current condition
--- NOTE | 2020-03-15 23:00 | NUR ---
DR. JANIA KEY, RE: PATIENT REFUSING HS MEDS, ALONG WITH TELE MONITOR. PATIENT HARD TO REDIRECT AND REFUSES . ACKNOWLEDGED THE REPORT, WITH NNO BUT F/UP WITH PSYCH CONSULT IN AM.
[2020-03-16] VITALS (14 sets, daily range): BP systolic 104–196; BP diastolic 37–92
[2020-03-16] MEDS: ALPRAZOLAM 0.5 MG TABLET GT PRN ×2 (03:00→08:23)
--- NOTE | 2020-03-16 03:00 | NUR ---
PATIENT NOTIFIED RN THAT FEELS UNEASY, AND RESTLESS. NOTED PATIENT COUGHING AND HAVING SOB. RN ADMINISTERED XANAX VIA GT PRN, ALONG WITH 3AM BP MEDICATION. TRACHEAL SUCTIONING ALSO PERFORMED, NOTED WITH THICK SECRETIONS. TRACHEAL DRESSING AND GT DRESSING CHANGED WELL.
[2020-03-16] MEDS: MINOXIDIL 2.5 MG TABLET GT SCH ×3 (03:30→19:56)
--- NOTE | 2020-03-16 04:15 | NUR ---
AT 0430 RN WAS NOTIFIED THAT PT HAS BEEN GOING IN AND OUT OF SINUS BRADYCARDIA. ASSESSMENT DONE AND NOTED PT SLEEPY AND LETHARGIC. VS TAKEN, WITH O2 SATURATION DROPPING TO THE 60%, TRACHEAL SUCTIONING DONE BY RT'S PRESENT. AND PATIENT WAS PLACED ON MANUAL ASSISTED BREATHING ON 100% O2. AFTER 15 MINUTES, PATIENT WENT BACK TO 100% spo2, and RESUMED BACK TO HIS O2 MIST VIA TRACH AT 4 LPM. PT NOW BACK TO SINUS RHYTHM AT THE 70-80S. PT ALSO RESPONDED AND IS MORE ALERT.
[2020-03-16] MEDS: hydrALAZINE HCL 50 MG TABLET GT SCH ×3 (06:30→21:32)
[2020-03-16] MEDS: SUCRALFATE 1 G/10 ML LIQUID UDC GT SCH ×4 (06:33→20:05)
[2020-03-16 06:55] LABS: CREATININE 5.4 mg/dL (0.6-1.3); MAGNESIUM 2.7 mg/dL (1.8-2.4); PHOSPHOROUS 6.3 mg/dL (2.5-4.9); POTASSIUM 5.4 mmol/L (3.5-5.1); VANCOMYCIN,RANDOM 26.4 ug/mL (18.0-26.0)
[2020-03-16 07:04] LABS: BASOPHILS # (AUTO) 0.1 K/uL (0.0-8.0); BASOPHILS % (AUTO) 0.9 % (0.0-2.0); EOSINOPHILS # (AUTO) 0.2 K/uL (0.0-0.7); EOSINOPHILS % (AUTO) 2.6 % (0.0-7.0); HEMATOCRIT 21.3 % (36.7-47.1); LYMPHOCYTES # (AUTO) 0.6 K/uL (20.0-40.0); LYMPHOCYTES % (AUTO) 6.5 % (20.5-51.5); MEAN CORPUSCULAR HEMOGLOBIN 28.4 uug (23.8-33.4); MEAN CORPUSCULAR HGB CONC 32 g/dL (32.5-36.3); MEAN CORPUSCULAR VOLUME 88.1 fL (73.0-96.2); MONOCYTES # (AUTO) 0.7 K/uL (2.0-10.0); MONOCYTES % (AUTO) 7.3 % (0.0-11.0); NEUTROPHILS # (AUTO) 7.8 K/uL (1.8-8.9); NEUTROPHILS % (AUTO) 82.7 % (38.5-71.5); PLATELET COUNT (AUTO) 314 K/uL (152-348); WHITE BLOOD COUNT (AUTO) 9.5 K/uL (3.6-10.2)
[2020-03-16 07:09] LABS: HEMOGLOBIN 6.9 g/dL (12.5-16.3); RED BLOOD CELL COUNT(AUTO) 2.42 MIL/uL (4.06-5.63)
[2020-03-16 07:59] LABS: NEUTROPHILS % (MANUAL) 82 % (42-75)
[2020-03-16 08:00] LABS: EOSINOPHILS % (MANUAL) 2 % (0-8); LYMPHOCYTES % (MANUAL) 8 % (20-40); MONOCYTES % (MANUAL) 8 % (2-10)
[2020-03-16] MEDS: AMLODIPINE 10 MG TABLET GT SCH (08:23)
[2020-03-16] MEDS: LOSARTAN POTASSIUM 50 MG TABLET GT SCH ×2 (08:23→17:01)
[2020-03-16] MEDS: FOLIC ACID/VITAMIN B COMP W-C TABLET GT SCH (08:23)
[2020-03-16] MEDS: ZINC SULFATE 220 MG CAPSULE GT SCH (08:23)
[2020-03-16] MEDS: CHOLECALCIFEROL 1,000 UNIT TABLET GT SCH (08:23)
[2020-03-16] MEDS: HYDROCODONE/APAP 10-325 MG TABLET GT PRN (08:24)
[2020-03-16] MEDS: PANTOPRAZOLE SODIUM 40 MG VIAL IV SCH ×2 (08:25→20:05)
[2020-03-16] MEDS: SEVELAMER CARBONATE 800 MG POWD.PACK GT SCH ×3 (08:26→17:03)
--- NOTE | 2020-03-16 08:30 | NUR ---
IN BED AWAKE ALERT P/VALVE APPLIED C/O PAIN IN BACK REQUEST PAIN MED. GTUBE FEEDING OFF AT THIS TIME
[2020-03-16] MEDS ORDERED: EPINEPHRINE 1:10,000 1 MG/10 ML DISP.SYRIN IV ONE (10:00)
[2020-03-16] MEDS ORDERED: CALCIUM CHLORIDE 1 GM/10 ML DISP.SYRIN IV ONE (10:10)
[2020-03-16] MEDS ORDERED: SODIUM BICARBONATE 8.4% 50 MEQ/50 ML DISP.SYRIN IV ONE (10:10)
--- NOTE | 2020-03-16 10:27 | NUR ---
0955 FOUND UNRESPONSIVE IN BED NOT BREATHING CODE SAMI CALLED AND INITIATED NOW SR ON MONITOR TRANSFER TO CCU. TRANSFER TO CCU ORDERED
[2020-03-16 10:50] LABS: ABG BASE EXCESS -2.6 mmol/L; ABG PCO2 43.5 mmHg (35.0-45.0); ABG PH 7.341 (7.350-7.450); ABG PO2 437.5 mmHg (75.0-100.0); ABG SITE RIGHT BRACHIAL; ABG TOTAL HEMOGLOBIN 8.5 G/dL (13.5-18.0); COHb 1.4 % (0.5-1.5); MetHb 0.3 % (0.0-1.5); VENT MODE VENT - A/C; VT, ABG 550 mL
--- NOTE | 2020-03-16 10:52 | NUR ---
Full telephone SBAR report received by 3rd floor IBRAHIMA Blunt.
[2020-03-16] MEDS: CEFTRIAXONE 1 G in IV DEXTROSE 5% 50 ML IV SCH (12:00)
--- NOTE | 2020-03-16 13:28 | NUR ---
Pt admitted to CCU-1 on mechanical ventilator (see flowsheet for settings). No IV access noted when pt was brought up to the unit. Looping Inspector notified and PICC line RN notified.
--- NOTE | 2020-03-16 14:06 | NUR ---
Telephone consent for blood transfusion signed by Lala Trammell () on the telephone: . alert and oriented during our phone conversation and is aware of the procedures to be done.
--- NOTE | 2020-03-16 14:11 | NUR ---
1 unit of PRBC started. Will closely monitor pt for any adverse blood transfusion reactions.
--- NOTE | 2020-03-16 14:30 | NUR ---
Pt tolerating 1 unit of PRBC. No adverse reactions or side effect noted during first 15 minutes. Will continue to monitor.
--- NOTE | 2020-03-16 16:30 | NUR ---
1 unit of PRBC completed. Pt tolerated transfusion well and no adverse reactions noted.
--- NOTE | 2020-03-16 19:10 | NUR ---
Received patient in bed trach to vent AC 18, Vt550, Fio2 50%, PEEP 5. Patient is currently very obtunded. Opens eyes to speech however does not have any meaningful response. No response to commands and no response to painful stimuli. When stimuli is ceased, he closes his eyes and resumes sleeping. Gtube present however tube feeding currently off s/p code blue resuscitation. Will resuming this evening @20mL/hr to see how he tolerates feeding. Flexi-seal in place, recently placed, so far no output seen. LISA midline present, currently locked, no IVF currently running.
[2020-03-17] VITALS (24 sets, daily range): BP systolic 99–185; BP diastolic 37–68
[2020-03-17] MEDS: MINOXIDIL 2.5 MG TABLET GT SCH ×3 (03:55→20:33)
[2020-03-17 06:22] LABS: BASOPHILS % (AUTO) 0.5 % (0.0-2.0); EOSINOPHILS # (AUTO) 0.1 K/uL (0.0-0.7); EOSINOPHILS % (AUTO) 0.6 % (0.0-7.0); HEMATOCRIT 25.8 % (36.7-47.1); HEMOGLOBIN 8.5 g/dL (12.5-16.3); LYMPHOCYTES # (AUTO) 0.6 K/uL (20.0-40.0); LYMPHOCYTES % (AUTO) 6.7 % (20.5-51.5); MEAN CORPUSCULAR HEMOGLOBIN 28.6 uug (23.8-33.4); MEAN CORPUSCULAR HGB CONC 33 g/dL (32.5-36.3); MEAN CORPUSCULAR VOLUME 86.5 fL (73.0-96.2); MONOCYTES # (AUTO) 0.6 K/uL (2.0-10.0); MONOCYTES % (AUTO) 6.3 % (0.0-11.0); NEUTROPHILS # (AUTO) 8.2 K/uL (1.8-8.9); NEUTROPHILS % (AUTO) 85.9 % (38.5-71.5); PLATELET COUNT (AUTO) 351 K/uL (152-348); RED BLOOD CELL COUNT(AUTO) 2.99 MIL/uL (4.06-5.63); WHITE BLOOD COUNT (AUTO) 9.5 K/uL (3.6-10.2)
[2020-03-17 06:32] LABS: BILIRUBIN,TOTAL 0.6 mg/dL (0.2-1.0); CREATININE 5.9 mg/dL (0.6-1.3); MAGNESIUM 2.8 mg/dL (1.8-2.4); PHOSPHOROUS 4.3 mg/dL (2.5-4.9); POTASSIUM 5.2 mmol/L (3.5-5.1); TOTAL PROTEIN, SERUM 7.5 g/dL (6.4-8.2)
[2020-03-17] MEDS: hydrALAZINE HCL 50 MG TABLET GT SCH ×3 (06:55→22:07)
[2020-03-17] MEDS ORDERED: DEXTROSE 50% 50 ML DISP.SYRIN IV ONE (07:15)
[2020-03-17] MEDS: LOSARTAN POTASSIUM 50 MG TABLET GT SCH ×2 (08:51→16:26)
[2020-03-17] MEDS: ZINC SULFATE 220 MG CAPSULE GT SCH (08:51)
[2020-03-17] MEDS: FOLIC ACID/VITAMIN B COMP W-C TABLET GT SCH (08:51)
[2020-03-17] MEDS: PANTOPRAZOLE SODIUM 40 MG VIAL IV SCH ×2 (08:52→20:38)
[2020-03-17] MEDS: SUCRALFATE 1 G/10 ML LIQUID UDC GT SCH ×4 (08:53→20:38)
[2020-03-17] MEDS: CHOLECALCIFEROL 1,000 UNIT TABLET GT SCH (08:54)
[2020-03-17] MEDS: AMLODIPINE 10 MG TABLET GT SCH (08:54)
[2020-03-17] MEDS: SEVELAMER CARBONATE 800 MG POWD.PACK GT SCH ×3 (08:55→16:26)
[2020-03-17] MEDS: NEPRO 1000 ML GT PRN (09:02)
--- NOTE | 2020-03-17 11:36 | NUR ---
A call from Pt's Lala Lerma she was updated on pt's status and care plan.
--- NOTE | 2020-03-17 11:40 | NUR ---
Cardiology services, Dr. Ann in to see pt. No new orders received. Will continue with care plan.
--- NOTE | 2020-03-17 12:00 | NUR ---
Pulmonary services, Dr. Cooper in the unit to see and examine pt. full report given, see orders.
[2020-03-17] MEDS: CEFTRIAXONE 1 G in IV DEXTROSE 5% 50 ML IV SCH (16:20)
--- NOTE | 2020-03-17 18:38 | NUR ---
Patient left in bed resting remains obtunded, hemodynamically stable. Remain on vent with no changes on vent setting no tachypnea or desaturation, A/C 18, tv550, Peep +5. G-t to nephro at 40 tolerating with no n/v. Over all skin remains with no new skin breakdown. ML to RUE patent. Safety precautions implemented at all times. Will endorse care to incoming shift.
--- NOTE | 2020-03-17 19:10 | NUR ---
Received patient in bed trach to vent AC 18, Vt550, Fio2 50%, PEEP 5. Patient remains obtunded. Opens eyes to speech however does not have any meaningful response. No response to commands and no response to painful stimuli. When stimuli is ceased, he closes his eyes and resumes sleeping. Gag reflex and cough reflex present. Gtube present with Nepro running at 40ml/hr. Flexi-seal in place, recently placed, so far no output seen. LISA midline present, currently locked, no IVF currently running.
--- NOTE | 2020-03-17 20:23 | NUR ---
Spoke with Dr. Hernandez regarding when the patient would next be receiving dialysis, expressing mine and the family's concern, also that there are no current active orders for dialysis. The informed me that they plan on doing dialysis tomorrow. He did not specify a time, nor did he tell me to input an order for dialysis.
[2020-03-18] VITALS (23 sets, daily range): BP systolic 85–168; BP diastolic 29–83
--- NOTE | 2020-03-18 | NUR ---
Patient has a fever of 100.2. Obtained Blood culture x 2. Spoke with Catalino Delaney, RAJAN, EMMANUELLE informed him of the elevated temp and report on current hospital stay and if he has further orders. No additional orders at this time.
[2020-03-18] MEDS: ACETAMINOPHEN 325 MG TABLET GT PRN (00:07)
[2020-03-18] MEDS: MINOXIDIL 2.5 MG TABLET GT SCH (03:30)
[2020-03-18 03:40] LABS: BASOPHILS # (AUTO) 0.1 K/uL (0.0-8.0); BASOPHILS % (AUTO) 0.7 % (0.0-2.0); EOSINOPHILS # (AUTO) 0.1 K/uL (0.0-0.7); EOSINOPHILS % (AUTO) 0.5 % (0.0-7.0); HEMATOCRIT 24.3 % (36.7-47.1); HEMOGLOBIN 8.1 g/dL (12.5-16.3); LYMPHOCYTES # (AUTO) 0.7 K/uL (20.0-40.0); LYMPHOCYTES % (AUTO) 6.7 % (20.5-51.5); MEAN CORPUSCULAR HEMOGLOBIN 28.8 uug (23.8-33.4); MEAN CORPUSCULAR HGB CONC 33 g/dL (32.5-36.3); MEAN CORPUSCULAR VOLUME 87.1 fL (73.0-96.2); MONOCYTES # (AUTO) 0.8 K/uL (2.0-10.0); MONOCYTES % (AUTO) 7.7 % (0.0-11.0); NEUTROPHILS # (AUTO) 8.6 K/uL (1.8-8.9); NEUTROPHILS % (AUTO) 84.4 % (38.5-71.5); PLATELET COUNT (AUTO) 316 K/uL (152-348); WHITE BLOOD COUNT (AUTO) 10.2 K/uL (3.6-10.2)
[2020-03-18 03:49] LABS: CREATININE 6.3 mg/dL (0.6-1.3); PHOSPHOROUS 3.5 mg/dL (2.5-4.9); VANCOMYCIN,RANDOM 25.1 ug/mL (18.0-26.0)
[2020-03-18 04:01] LABS: MAGNESIUM 2.6 mg/dL (1.8-2.4)
[2020-03-18] MEDS: hydrALAZINE HCL 50 MG TABLET GT SCH ×3 (06:50→20:43)
[2020-03-18] MEDS: FOLIC ACID/VITAMIN B COMP W-C TABLET GT SCH (07:57)
[2020-03-18] MEDS: LOSARTAN POTASSIUM 50 MG TABLET GT SCH ×2 (07:57→16:40)
[2020-03-18] MEDS: ZINC SULFATE 220 MG CAPSULE GT SCH (07:57)
[2020-03-18] MEDS: SUCRALFATE 1 G/10 ML LIQUID UDC GT SCH ×4 (07:59→20:42)
[2020-03-18] MEDS: CHOLECALCIFEROL 1,000 UNIT TABLET GT SCH (08:00)
[2020-03-18] MEDS: PANTOPRAZOLE SODIUM 40 MG VIAL IV SCH ×2 (08:00→20:42)
[2020-03-18] MEDS: SEVELAMER CARBONATE 800 MG POWD.PACK GT SCH ×3 (08:00→16:40)
[2020-03-18] MEDS: AMLODIPINE 10 MG TABLET GT SCH (08:00)
[2020-03-18 08:27] LABS: ABG BASE EXCESS 1.3 mmol/L; ABG HCO3 24.7 mmol/L; ABG PCO2 34.3 mmHg (35.0-45.0); ABG PH 7.476 (7.350-7.450); ABG PO2 214.9 mmHg (75.0-100.0); ABG SITE RIGHT RADIAL; ABG TOTAL HEMOGLOBIN 8.3 G/dL (13.5-18.0); MetHb 0.4 % (0.0-1.5); O2Hb 98.3 % (94.0-97.0); VENT MODE VENT - A/C; VT, ABG 550 mL
--- NOTE | 2020-03-18 10:33 | NUR ---
Dr. Orona here to see pt. Full report given. New orders received.
--- NOTE | 2020-03-18 11:37 | NUR ---
WOUND CARE CONSULT: PT PRESENTS WITH SACRAL SCARRING, OPEN WOUND TO LEFT HEEL AND PURULENT WOUND TO LEFT POSTERIOR THIGH, ALL PRESENT ON ADMISSION. RECOMMEND DPM AND SURGICAL CONSULTS. DR GILL AND DR KODI CARVAJAL NOTIFIED OF CONSULT REQUESTS. RECOMMENDATIONS MADE FOR WOUND CARE AND SKIN PROTECTION. DISCUSSED WITH NURSING STAFF. MD IN AGREEMENT WITH PLAN OF CARE. Addendum: 03/18/20 at 1141 by GABI NICHOLSON RN PT ALSO NOTED TO HAVE GENERALIZED EDEMA, INTACT BLISTERS TO RT SIDE OF BACK AND EDEMA TO SCROTUM.
[2020-03-18] MEDS: CEFTRIAXONE 1 G in IV DEXTROSE 5% 50 ML IV SCH (11:40)
[2020-03-18] MEDS: SODIUM HYPOCHLORITE 0.125% (QUARTER STRENGTH) 473 ML BOTTLE TP SCH (11:59)
--- NOTE | 2020-03-18 12:50 | NUR ---
Dr. Cooper here to see pt. Full report given. New orders received.
--- NOTE | 2020-03-18 16:00 | NUR ---
pot sander here to see pt for dialysis treatment.
--- NOTE | 2020-03-18 16:40 | NUR ---
Evening BP meds held. Pt receiving dialysis treatment at this time.
--- NOTE | 2020-03-18 18:25 | NUR ---
Dialysis completed. 2L of hemodialysis fluid removed. Pt stable and nad noted upon completion of dialysis treatment.
--- NOTE | 2020-03-18 19:30 | NUR ---
Report received. Patient with trache to vent; saturations above 94%. Opens eyes to pain; doesn't track. Assessment completed and documented.
[2020-03-18] MEDS: NEPRO 1000 ML GT PRN (21:02)
[2020-03-19] VITALS (22 sets, daily range): BP systolic 110–159; BP diastolic 46–74
[2020-03-19 05:28] LABS: BASOPHILS # (AUTO) 0.1 K/uL (0.0-8.0); BASOPHILS % (AUTO) 0.5 % (0.0-2.0); EOSINOPHILS # (AUTO) 0.2 K/uL (0.0-0.7); EOSINOPHILS % (AUTO) 2.1 % (0.0-7.0); HEMATOCRIT 25.1 % (36.7-47.1); HEMOGLOBIN 8.1 g/dL (12.5-16.3); LYMPHOCYTES # (AUTO) 0.5 K/uL (20.0-40.0); LYMPHOCYTES % (AUTO) 5.6 % (20.5-51.5); MEAN CORPUSCULAR HEMOGLOBIN 28.7 uug (23.8-33.4); MEAN CORPUSCULAR HGB CONC 32 g/dL (32.5-36.3); MEAN CORPUSCULAR VOLUME 88.5 fL (73.0-96.2); MONOCYTES # (AUTO) 0.8 K/uL (2.0-10.0); MONOCYTES % (AUTO) 8.1 % (0.0-11.0); NEUTROPHILS % (AUTO) 83.7 % (38.5-71.5); PLATELET COUNT (AUTO) 347 K/uL (152-348); RED BLOOD CELL COUNT(AUTO) 2.84 MIL/uL (4.06-5.63); WHITE BLOOD COUNT (AUTO) 9.6 K/uL (3.6-10.2)
[2020-03-19 05:46] LABS: CREATININE 4.7 mg/dL (0.6-1.3); MAGNESIUM 2.5 mg/dL (1.8-2.4); PHOSPHOROUS 3.2 mg/dL (2.5-4.9)
[2020-03-19] MEDS: hydrALAZINE HCL 50 MG TABLET GT SCH ×3 (05:53→21:39)
[2020-03-19] MEDS: SUCRALFATE 1 G/10 ML LIQUID UDC GT SCH ×4 (06:38→21:38)
--- NOTE | 2020-03-19 07:00 | NUR ---
Stable on current vent settings; O2 saturations above 95%.
[2020-03-19] MEDS: ZINC SULFATE 220 MG CAPSULE GT SCH (08:07)
[2020-03-19] MEDS: LOSARTAN POTASSIUM 50 MG TABLET GT SCH ×2 (08:08→16:51)
[2020-03-19] MEDS: CHOLECALCIFEROL 1,000 UNIT TABLET GT SCH (08:09)
[2020-03-19] MEDS: FOLIC ACID/VITAMIN B COMP W-C TABLET GT SCH (08:09)
[2020-03-19] MEDS: AMLODIPINE 10 MG TABLET GT SCH (08:10)
[2020-03-19] MEDS: SEVELAMER CARBONATE 800 MG POWD.PACK GT SCH ×3 (08:11→16:51)
[2020-03-19] MEDS: PANTOPRAZOLE SODIUM 40 MG VIAL IV SCH ×2 (08:12→21:38)
[2020-03-19] MEDS: SODIUM HYPOCHLORITE 0.125% (QUARTER STRENGTH) 473 ML BOTTLE TP SCH (09:01)
[2020-03-19 09:25] LABS: ABG BASE EXCESS 4.3 mmol/L; ABG PCO2 37.5 mmHg (35.0-45.0); ABG PH 7.491 (7.350-7.450); ABG SITE RIGHT RADIAL; COHb 1.1 % (0.5-1.5); MetHb 0.6 % (0.0-1.5); O2Hb 97.2 % (94.0-97.0); VENT MODE VENT - A/C; VT, ABG 550 mL
--- NOTE | 2020-03-19 09:30 | NUR ---
DOCTOR ARORA IS IN THE UNIT TO SEE PATIENT. PATIENT CAN BE DOWNGRADED TO TELE OR CRISS.
[2020-03-19] MEDS: CEFTRIAXONE 1 G in IV DEXTROSE 5% 50 ML IV SCH (11:54)
--- NOTE | 2020-03-19 14:30 | NUR ---
Dr. Kenneth warren for aurelia status.
--- NOTE | 2020-03-19 19:30 | NUR ---
Received patient lying in bed. Obtunded, opens his eyes to tactile stimuli. In no acute distress. No signs or symptoms of pain or SOB. NSR on tele at 81/min. Tracheostomy with vent intact. GT site intact and patent. GT feeding restarted. IV site on right upper arm intact and patent. Midline on right upper arm intact and patent. AV shunt to left arm. FlexeseaL in place. Safety measure initiated. Continue to monitor.
[2020-03-20] VITALS (7 sets, daily range): BP systolic 112–141; BP diastolic 25–50
[2020-03-20] MEDS: NEPRO 1000 ML GT PRN (03:24)
[2020-03-20] MEDS: hydrALAZINE HCL 50 MG TABLET GT SCH ×3 (06:00→22:43)
--- NOTE | 2020-03-20 06:16 | NUR ---
No adverse event noted through out the shift. Remans obtunded. No signs or symptoms of pain or SOB noted. NSR on tele at 78/min. GT feeding well hanh. Flexi seal remains intact. Safety measure maintained.
[2020-03-20] MEDS: SUCRALFATE 1 G/10 ML LIQUID UDC GT SCH ×4 (06:47→20:34)
[2020-03-20 07:25] LABS: BASOPHILS # (AUTO) 0.1 K/uL (0.0-8.0); BASOPHILS % (AUTO) 0.6 % (0.0-2.0); EOSINOPHILS # (AUTO) 0.3 K/uL (0.0-0.7); EOSINOPHILS % (AUTO) 2.7 % (0.0-7.0); HEMATOCRIT 25.2 % (36.7-47.1); LYMPHOCYTES # (AUTO) 0.6 K/uL (20.0-40.0); MEAN CORPUSCULAR HEMOGLOBIN 28.2 uug (23.8-33.4); MEAN CORPUSCULAR HGB CONC 32 g/dL (32.5-36.3); MEAN CORPUSCULAR VOLUME 88.6 fL (73.0-96.2); MONOCYTES # (AUTO) 0.7 K/uL (2.0-10.0); MONOCYTES % (AUTO) 6.8 % (0.0-11.0); NEUTROPHILS # (AUTO) 8.6 K/uL (1.8-8.9); NEUTROPHILS % (AUTO) 83.9 % (38.5-71.5); PLATELET COUNT (AUTO) 317 K/uL (152-348); RED BLOOD CELL COUNT(AUTO) 2.85 MIL/uL (4.06-5.63); WHITE BLOOD COUNT (AUTO) 10.2 K/uL (3.6-10.2)
[2020-03-20 07:36] LABS: CREATININE 5.1 mg/dL (0.6-1.3); VANCOMYCIN,RANDOM 17.8 ug/mL (18.0-26.0)
--- NOTE | 2020-03-20 08:00 | NUR ---
RESTING COMFORTABLY IN BED, WITH VENT SETTINGS AT 550-28-15-5 SHILEY#8. PATIENT SATURATING 96-100%. CONTINUE WITH PLAN OF CARE
[2020-03-20] MEDS: LOSARTAN POTASSIUM 50 MG TABLET GT SCH ×2 (08:33→16:56)
[2020-03-20] MEDS: AMLODIPINE 10 MG TABLET GT SCH (08:33)
[2020-03-20] MEDS: ZINC SULFATE 220 MG CAPSULE GT SCH (08:35)
[2020-03-20] MEDS: CHOLECALCIFEROL 1,000 UNIT TABLET GT SCH (08:35)
[2020-03-20] MEDS: PANTOPRAZOLE SODIUM 40 MG VIAL IV SCH ×2 (08:36→20:34)
[2020-03-20] MEDS: FOLIC ACID/VITAMIN B COMP W-C TABLET GT SCH (08:36)
[2020-03-20] MEDS: SODIUM HYPOCHLORITE 0.125% (QUARTER STRENGTH) 473 ML BOTTLE TP SCH (08:37)
[2020-03-20] MEDS: SEVELAMER CARBONATE 800 MG POWD.PACK GT SCH ×3 (08:39→16:55)
--- NOTE | 2020-03-20 12:00 | NUR ---
SEEN BY DR ESTRADA SEE NOTES. PATIENT TOLERATING FEEDING WELL. REQUIRES FREQUENT SUCTIONING AND ORAL CARE
--- NOTE | 2020-03-20 14:54 | NUR ---
NO ACUTE CHANGE FROM PREVIOUS ASSESSMENT, SR ON MONITOR. AFEBRILE
--- NOTE | 2020-03-20 19:15 | NUR ---
received patient with spontaneous eye opening , responsive to deep pain , unable t follow command , vent settings ac 15 , tv 550 , p 5 and fi2 of 28 % , gt nephro at 50 ml , no residual noted , flexi seal intact , yoselin av shunt bruits and thrill present , no fever noted
[2020-03-21] VITALS (7 sets, daily range): BP systolic 142–158; BP diastolic 31–42
[2020-03-21] MEDS: NEPRO 1000 ML GT PRN (04:39)
[2020-03-21] MEDS: SUCRALFATE 1 G/10 ML LIQUID UDC GT SCH ×4 (05:35→20:53)
[2020-03-21] MEDS: hydrALAZINE HCL 50 MG TABLET GT SCH ×3 (05:37→20:57)
--- NOTE | 2020-03-21 06:00 | NUR ---
same vent settings , tolerating well , gt feeding flushed and clamped as per order x 22 hours , off at 6am on at 8am , no residual no fever
[2020-03-21 07:02] LABS: BASOPHILS # (AUTO) 0.1 K/uL (0.0-8.0); EOSINOPHILS # (AUTO) 0.2 K/uL (0.0-0.7); EOSINOPHILS % (AUTO) 2.4 % (0.0-7.0); HEMATOCRIT 24.5 % (36.7-47.1); HEMOGLOBIN 7.6 g/dL (12.5-16.3); LYMPHOCYTES # (AUTO) 0.9 K/uL (20.0-40.0); LYMPHOCYTES % (AUTO) 10.9 % (20.5-51.5); MEAN CORPUSCULAR HEMOGLOBIN 27.9 uug (23.8-33.4); MEAN CORPUSCULAR HGB CONC 31 g/dL (32.5-36.3); MEAN CORPUSCULAR VOLUME 89.7 fL (73.0-96.2); MONOCYTES # (AUTO) 0.7 K/uL (2.0-10.0); MONOCYTES % (AUTO) 8.3 % (0.0-11.0); NEUTROPHILS # (AUTO) 6.6 K/uL (1.8-8.9); NEUTROPHILS % (AUTO) 77.4 % (38.5-71.5); PLATELET COUNT (AUTO) 282 K/uL (152-348); RED BLOOD CELL COUNT(AUTO) 2.73 MIL/uL (4.06-5.63); WHITE BLOOD COUNT (AUTO) 8.5 K/uL (3.6-10.2)
[2020-03-21 07:36] LABS: CREATININE 5.9 mg/dL (0.6-1.3); POTASSIUM 4.2 mmol/L (3.5-5.1)
[2020-03-21] MEDS: SEVELAMER CARBONATE 800 MG POWD.PACK GT SCH ×3 (08:12→17:26)
[2020-03-21] MEDS: PANTOPRAZOLE SODIUM 40 MG VIAL IV SCH ×2 (08:12→20:54)
[2020-03-21] MEDS: FOLIC ACID/VITAMIN B COMP W-C TABLET GT SCH (08:13)
[2020-03-21] MEDS: AMLODIPINE 10 MG TABLET GT SCH (08:13)
[2020-03-21] MEDS: CHOLECALCIFEROL 1,000 UNIT TABLET GT SCH (08:13)
[2020-03-21] MEDS: ZINC SULFATE 220 MG CAPSULE GT SCH (08:13)
[2020-03-21] MEDS: LOSARTAN POTASSIUM 50 MG TABLET GT SCH ×2 (08:13→17:27)
[2020-03-21] MEDS: SODIUM HYPOCHLORITE 0.125% (QUARTER STRENGTH) 473 ML BOTTLE TP SCH (08:14)
[2020-03-21] MEDS ORDERED: EPOETIN ALFA 10,000 UNITS/ML VIAL SQ SCH (15:00)
--- NOTE | 2020-03-21 20:00 | NUR ---
asleep,vitals sign stable on vent 100%pulse oximetry.nephro gt at 50cc/hr tolerating feeding well.reposition for comfort. sacrum cleanse with normal saline and right thigh dressings dry and intact.rectal tube intact, with loose bm.right midline intact.
[2020-03-22 01:36] VITALS: BP 148/39
[2020-03-22 05:10] VITALS: BP 158/48
[2020-03-22] MEDS: hydrALAZINE HCL 50 MG TABLET GT SCH ×3 (06:17→22:00)
[2020-03-22 09:12] LABS: POTASSIUM 4.6 mmol/L (3.5-5.1)
[2020-03-22] MEDS: PANTOPRAZOLE SODIUM 40 MG VIAL IV SCH ×2 (09:52→21:05)
[2020-03-22] MEDS: CHOLECALCIFEROL 1,000 UNIT TABLET GT SCH (09:52)
[2020-03-22] MEDS: ZINC SULFATE 220 MG CAPSULE GT SCH (09:52)
[2020-03-22] MEDS: SODIUM HYPOCHLORITE 0.125% (QUARTER STRENGTH) 473 ML BOTTLE TP SCH (09:52)
[2020-03-22] MEDS: FOLIC ACID/VITAMIN B COMP W-C TABLET GT SCH (09:53)
[2020-03-22] MEDS: SEVELAMER CARBONATE 800 MG POWD.PACK GT SCH ×3 (09:53→17:00)
[2020-03-22] MEDS: LOSARTAN POTASSIUM 50 MG TABLET GT SCH ×2 (09:53→17:00)
[2020-03-22] MEDS: SUCRALFATE 1 G/10 ML LIQUID UDC GT SCH ×4 (09:53→21:05)
[2020-03-22] MEDS: AMLODIPINE 10 MG TABLET GT SCH (09:53)
[2020-03-22 11:25] LABS: BASOPHILS # (AUTO) 0.1 K/uL (0.0-8.0); BASOPHILS % (AUTO) 1.1 % (0.0-2.0); EOSINOPHILS # (AUTO) 0.3 K/uL (0.0-0.7); EOSINOPHILS % (AUTO) 3.1 % (0.0-7.0); HEMATOCRIT 25.2 % (36.7-47.1); HEMOGLOBIN 7.9 g/dL (12.5-16.3); LYMPHOCYTES # (AUTO) 0.8 K/uL (20.0-40.0); LYMPHOCYTES % (AUTO) 9.2 % (20.5-51.5); MEAN CORPUSCULAR HEMOGLOBIN 27.9 uug (23.8-33.4); MEAN CORPUSCULAR HGB CONC 31 g/dL (32.5-36.3); MEAN CORPUSCULAR VOLUME 88.7 fL (73.0-96.2); MONOCYTES # (AUTO) 0.6 K/uL (2.0-10.0); MONOCYTES % (AUTO) 7.2 % (0.0-11.0); NEUTROPHILS # (AUTO) 6.8 K/uL (1.8-8.9); NEUTROPHILS % (AUTO) 79.4 % (38.5-71.5); PLATELET COUNT (AUTO) 292 K/uL (152-348); RED BLOOD CELL COUNT(AUTO) 2.84 MIL/uL (4.06-5.63); WHITE BLOOD COUNT (AUTO) 8.6 K/uL (3.6-10.2)
[2020-03-22 12:08] VITALS: BP 182/62
[2020-03-22 13:37] VITALS: BP 118/89
[2020-03-22 16:10] VITALS: BP 158/37
--- NOTE | 2020-03-22 18:00 | NUR ---
BLADDER SCAN DONE SHOWS 0-6ML OF URINE IN THE BLADDER. ST CATH ALSO MINIMAL URINE
--- NOTE | 2020-03-22 19:30 | NUR ---
Received patient lying in bed. Obtunded, opens his eyes to tactile stimuli. In no acute distress. No signs or symptoms of pain or SOB noted. NSR on tele at 83/min. Tracheostomy with vent intact. GT site intact and patent. GT feeding infusing. IV site on right upper arm intact and patent. Midline on right upper arm intact and patent. AV shunt to left arm. Flexi seaL in place. Safety measure initiated. Continue to monitor.
[2020-03-22 21:19] VITALS: BP 123/38
[2020-03-23] VITALS (10 sets, daily range): BP systolic 126–154; BP diastolic 24–57
[2020-03-23] MEDS: ACETAMINOPHEN 325 MG TABLET GT PRN (00:24)
[2020-03-23] MEDS: hydrALAZINE HCL 50 MG TABLET GT SCH ×3 (06:00→21:51)
[2020-03-23] MEDS: SUCRALFATE 1 G/10 ML LIQUID UDC GT SCH ×4 (06:45→20:32)
--- NOTE | 2020-03-23 06:50 | NUR ---
Pt opens eyes to tactile stimuli. No signs or symptoms of pain or SOB noted. NSR on tele at 74/min. Afebrile at this time. Cooling measures was provided. Tracheostomy with vent. GT site intact and patent. GT feeding/flushing hanh. well. Turned and reposition Q2 hrs. Suction secretions PRN. Safety measure maintained.
--- NOTE | 2020-03-23 08:00 | NUR ---
Dr smith Ordered 1 prbc to be transfused today. Lab stated that we need new type and screen order secondary to prior type and screen . Type and screen ordered. PT on Vent settings as ordered. PT is in no acute distress. Call light is within reach.
[2020-03-23 08:58] LABS: CREATININE 6.4 mg/dL (0.6-1.3); POTASSIUM 4.6 mmol/L (3.5-5.1)
[2020-03-23 09:05] LABS: BASOPHILS # (AUTO) 0.1 K/uL (0.0-8.0); BASOPHILS % (AUTO) 1.4 % (0.0-2.0); EOSINOPHILS # (AUTO) 0.2 K/uL (0.0-0.7); HEMATOCRIT 23.1 % (36.7-47.1); LYMPHOCYTES # (AUTO) 0.9 K/uL (20.0-40.0); LYMPHOCYTES % (AUTO) 11.4 % (20.5-51.5); MEAN CORPUSCULAR HEMOGLOBIN 28.3 uug (23.8-33.4); MEAN CORPUSCULAR HGB CONC 32 g/dL (32.5-36.3); MEAN CORPUSCULAR VOLUME 87.9 fL (73.0-96.2); MONOCYTES # (AUTO) 0.6 K/uL (2.0-10.0); NEUTROPHILS # (AUTO) 5.9 K/uL (1.8-8.9); NEUTROPHILS % (AUTO) 76.2 % (38.5-71.5); PLATELET COUNT (AUTO) 273 K/uL (152-348); RED BLOOD CELL COUNT(AUTO) 2.63 MIL/uL (4.06-5.63); WHITE BLOOD COUNT (AUTO) 7.8 K/uL (3.6-10.2)
[2020-03-23] MEDS: PANTOPRAZOLE SODIUM 40 MG VIAL IV SCH ×2 (09:20→20:32)
[2020-03-23] MEDS: ZINC SULFATE 220 MG CAPSULE GT SCH (09:21)
[2020-03-23] MEDS: AMLODIPINE 10 MG TABLET GT SCH (09:21)
[2020-03-23] MEDS: CHOLECALCIFEROL 1,000 UNIT TABLET GT SCH (09:21)
[2020-03-23] MEDS: LOSARTAN POTASSIUM 50 MG TABLET GT SCH ×2 (09:21→16:34)
[2020-03-23] MEDS: FOLIC ACID/VITAMIN B COMP W-C TABLET GT SCH (09:21)
[2020-03-23] MEDS: SODIUM HYPOCHLORITE 0.125% (QUARTER STRENGTH) 473 ML BOTTLE TP SCH (09:22)
[2020-03-23] MEDS: SEVELAMER CARBONATE 800 MG POWD.PACK GT SCH ×3 (09:22→16:34)
[2020-03-23 10:08] LABS: HEMOGLOBIN 7.4 g/dL (12.5-16.3)
[2020-03-23] MEDS: NEPRO 1000 ML GT PRN (12:24)
--- NOTE | 2020-03-23 19:14 | NUR ---
Blood 1 PRBC transfusion done. Pt tolerated blood transfusion. No wheezing or congestion noted. Will notify on coming shift to monitor for any congestion post transfusion.
--- NOTE | 2020-03-23 19:30 | NUR ---
Pt obtunded, opens his eyes to tactile stimuli. In no acute distress. No signs or symptoms of pain or SOB noted. NSR on tele at 78/min. Tracheostomy with vent intact. GT feeding infusing. IV site on right upper arm intact and patent. Midline on right upper arm intact and patent. AV shunt to left arm. Flexi seaL in place. Safety measure initiated.
--- NOTE | 2020-03-23 21:52 | NUR ---
Pt BP 154/22 HR 77, informed UNIVERSAL WINDING MACHINE OPERATOR Keh and instructed this nurse to hold Hydralazine dose for tonight. Order carried out.
[2020-03-24] VITALS: BP 156/27
[2020-03-24 04:00] VITALS: BP 151/24
[2020-03-24] MEDS: hydrALAZINE HCL 50 MG TABLET GT SCH ×3 (06:00→23:14)
[2020-03-24] MEDS: ACETAMINOPHEN 325 MG TABLET GT PRN ×2 (06:10→23:14)
--- NOTE | 2020-03-24 06:30 | NUR ---
No significant event through out the shift. Pt appears comfortable in bed. NSR on tele at 88/min. GT feeding/flushing well tolerated. Trach with vent. Flexiseal remains intact. Turned and reposition q2hrs. Safety measure maintained.
[2020-03-24] MEDS: SUCRALFATE 1 G/10 ML LIQUID UDC GT SCH ×4 (06:42→23:13)
[2020-03-24 07:39] VITALS: BP 153/34
[2020-03-24 07:53] LABS: BASOPHILS # (AUTO) 0.1 K/uL (0.0-8.0); BASOPHILS % (AUTO) 0.8 % (0.0-2.0); EOSINOPHILS # (AUTO) 0.2 K/uL (0.0-0.7); EOSINOPHILS % (AUTO) 1.9 % (0.0-7.0); HEMATOCRIT 23.3 % (36.7-47.1); HEMOGLOBIN 7.8 g/dL (12.5-16.3); LYMPHOCYTES # (AUTO) 0.9 K/uL (20.0-40.0); LYMPHOCYTES % (AUTO) 9.9 % (20.5-51.5); MEAN CORPUSCULAR HEMOGLOBIN 28.5 uug (23.8-33.4); MEAN CORPUSCULAR HGB CONC 33 g/dL (32.5-36.3); MEAN CORPUSCULAR VOLUME 85.5 fL (73.0-96.2); MONOCYTES # (AUTO) 0.7 K/uL (2.0-10.0); MONOCYTES % (AUTO) 7.4 % (0.0-11.0); NEUTROPHILS # (AUTO) 7.2 K/uL (1.8-8.9); PLATELET COUNT (AUTO) 268 K/uL (152-348); RED BLOOD CELL COUNT(AUTO) 2.73 MIL/uL (4.06-5.63)
--- NOTE | 2020-03-24 08:00 | NUR ---
Held AM meds secondary to HD nurse here to do Dialysis. Temp 98.6 no further fever. Cooling measure from prior shift effective.
[2020-03-24 08:08] LABS: CREATININE 6.9 mg/dL (0.6-1.3); POTASSIUM 4.8 mmol/L (3.5-5.1)
[2020-03-24] MEDS: ZINC SULFATE 220 MG CAPSULE GT SCH (08:48)
[2020-03-24] MEDS: FOLIC ACID/VITAMIN B COMP W-C TABLET GT SCH (08:48)
[2020-03-24] MEDS: CHOLECALCIFEROL 1,000 UNIT TABLET GT SCH (08:48)
[2020-03-24] MEDS: SODIUM HYPOCHLORITE 0.125% (QUARTER STRENGTH) 473 ML BOTTLE TP SCH (08:49)
[2020-03-24] MEDS: LOSARTAN POTASSIUM 50 MG TABLET GT SCH ×2 (08:49→18:04)
[2020-03-24] MEDS: PANTOPRAZOLE SODIUM 40 MG VIAL IV SCH ×2 (08:49→23:13)
[2020-03-24] MEDS: AMLODIPINE 10 MG TABLET GT SCH (08:50)
[2020-03-24] MEDS: SEVELAMER CARBONATE 800 MG POWD.PACK GT SCH ×3 (08:50→16:41)
[2020-03-24 11:10] VITALS: BP 130/18
--- NOTE | 2020-03-24 12:30 | NUR ---
HD done pt tolerated Dialysis. [facility] took out 2.1 liters of fluid. Pt is in no acute distress.
[2020-03-24 15:04] VITALS: BP 162/28
--- NOTE | 2020-03-24 18:11 | NUR ---
Clarified Parameter for Losartan and Apresoline secondary to consistent low diastolic pressures. New orders received to check bps at wrist instead of legs and to hold b/p meds with diastolic less than 30.
[2020-03-24 20:26] VITALS: BP 173/54
[2020-03-24] MEDS: NEPRO 1000 ML GT PRN (23:59)
[2020-03-25] VITALS (7 sets, daily range): BP systolic 150–179; BP diastolic 40–59
[2020-03-25] MEDS: hydrALAZINE HCL 50 MG TABLET GT SCH ×3 (06:54→21:10)
[2020-03-25] MEDS: SUCRALFATE 1 G/10 ML LIQUID UDC GT SCH ×4 (06:54→21:08)
[2020-03-25 07:46] LABS: BASOPHILS # (AUTO) 0.1 K/uL (0.0-8.0); BASOPHILS % (AUTO) 0.9 % (0.0-2.0); EOSINOPHILS # (AUTO) 0.1 K/uL (0.0-0.7); EOSINOPHILS % (AUTO) 1.6 % (0.0-7.0); HEMATOCRIT 23.5 % (36.7-47.1); HEMOGLOBIN 7.7 g/dL (12.5-16.3); LYMPHOCYTES # (AUTO) 0.7 K/uL (20.0-40.0); LYMPHOCYTES % (AUTO) 9.5 % (20.5-51.5); MEAN CORPUSCULAR HGB CONC 33 g/dL (32.5-36.3); MONOCYTES # (AUTO) 0.6 K/uL (2.0-10.0); MONOCYTES % (AUTO) 7.9 % (0.0-11.0); NEUTROPHILS # (AUTO) 6.3 K/uL (1.8-8.9); NEUTROPHILS % (AUTO) 80.1 % (38.5-71.5); PLATELET COUNT (AUTO) 265 K/uL (152-348); RED BLOOD CELL COUNT(AUTO) 2.77 MIL/uL (4.06-5.63); WHITE BLOOD COUNT (AUTO) 7.8 K/uL (3.6-10.2)
[2020-03-25 07:59] LABS: CREATININE 5.1 mg/dL (0.6-1.3)
[2020-03-25] MEDS: SEVELAMER CARBONATE 800 MG POWD.PACK GT SCH ×3 (09:10→16:28)
[2020-03-25] MEDS: LOSARTAN POTASSIUM 50 MG TABLET GT SCH ×2 (09:11→16:28)
[2020-03-25] MEDS: AMLODIPINE 10 MG TABLET GT SCH (09:11)
[2020-03-25] MEDS: ZINC SULFATE 220 MG CAPSULE GT SCH (09:12)
[2020-03-25] MEDS: CHOLECALCIFEROL 1,000 UNIT TABLET GT SCH (09:12)
[2020-03-25] MEDS: FOLIC ACID/VITAMIN B COMP W-C TABLET GT SCH (09:14)
[2020-03-25] MEDS: PANTOPRAZOLE SODIUM 40 MG VIAL IV SCH (09:14)
[2020-03-25] MEDS: SODIUM HYPOCHLORITE 0.125% (QUARTER STRENGTH) 473 ML BOTTLE TP SCH (09:31)
--- NOTE | 2020-03-25 10:00 | NUR ---
Patient more alert and responsive. Eyes are open and tracking but still non verbal. Edema on bilateral upper extremities noted +2. Elevated arms with pillows. Rectal tube draining black stool. On ventilator as ordered.
[2020-03-25] MEDS: PANTOPRAZOLE ORAL SUSPENSION 40 MG SUSPDR.PKT GT SCH (21:08)
[2020-03-25] MEDS: ACETAMINOPHEN 325 MG TABLET GT PRN (21:10)
[2020-03-26] VITALS: BP 143/46
[2020-03-26 04:00] VITALS: BP 163/52
[2020-03-26] MEDS: hydrALAZINE HCL 50 MG TABLET GT SCH ×2 (05:33→13:49)
[2020-03-26] MEDS: SUCRALFATE 1 G/10 ML LIQUID UDC GT SCH ×3 (05:33→17:57)
[2020-03-26 06:57] LABS: BASOPHILS # (AUTO) 0.1 K/uL (0.0-8.0); BASOPHILS % (AUTO) 0.5 % (0.0-2.0); EOSINOPHILS # (AUTO) 0.1 K/uL (0.0-0.7); EOSINOPHILS % (AUTO) 1.4 % (0.0-7.0); HEMATOCRIT 23.1 % (36.7-47.1); HEMOGLOBIN 7.7 g/dL (12.5-16.3); LYMPHOCYTES # (AUTO) 0.8 K/uL (20.0-40.0); LYMPHOCYTES % (AUTO) 7.6 % (20.5-51.5); MEAN CORPUSCULAR HEMOGLOBIN 28.4 uug (23.8-33.4); MEAN CORPUSCULAR HGB CONC 33 g/dL (32.5-36.3); MEAN CORPUSCULAR VOLUME 85.7 fL (73.0-96.2); MONOCYTES # (AUTO) 0.7 K/uL (2.0-10.0); MONOCYTES % (AUTO) 6.8 % (0.0-11.0); NEUTROPHILS # (AUTO) 8.8 K/uL (1.8-8.9); NEUTROPHILS % (AUTO) 83.7 % (38.5-71.5); PLATELET COUNT (AUTO) 273 K/uL (152-348); WHITE BLOOD COUNT (AUTO) 10.5 K/uL (3.6-10.2)
--- NOTE | 2020-03-26 07:10 | NUR ---
Received patient in bed, awake and responsive, still non verbal. No s/s of respiratory distress. Patient on ventilator as ordered, Gisela [phone]. Patients is currently comfortable with current setting saturating at 100%. Patient is with R arm midline IV access, intact and patent. with rectal tube draining black stool. Will continue to monitor.
[2020-03-26 07:28] LABS: CREATININE 5.7 mg/dL (0.6-1.3); MAGNESIUM 2.6 mg/dL (1.8-2.4); PHOSPHOROUS 2.2 mg/dL (2.5-4.9); POTASSIUM 4.2 mmol/L (3.5-5.1)
[2020-03-26] MEDS: LOSARTAN POTASSIUM 50 MG TABLET GT SCH ×2 (09:05→17:00)
[2020-03-26] MEDS: FOLIC ACID/VITAMIN B COMP W-C TABLET GT SCH (09:06)
[2020-03-26] MEDS: AMLODIPINE 10 MG TABLET GT SCH (09:06)
[2020-03-26] MEDS: PANTOPRAZOLE ORAL SUSPENSION 40 MG SUSPDR.PKT GT SCH (09:07)
[2020-03-26] MEDS: ZINC SULFATE 220 MG CAPSULE GT SCH (09:08)
[2020-03-26] MEDS: CHOLECALCIFEROL 1,000 UNIT TABLET GT SCH (09:11)
[2020-03-26] MEDS: SEVELAMER CARBONATE 800 MG POWD.PACK GT SCH ×3 (09:12→17:57)
[2020-03-26] MEDS: SODIUM HYPOCHLORITE 0.125% (QUARTER STRENGTH) 473 ML BOTTLE TP SCH (09:13)
[2020-03-26 12:00] VITALS: BP 171/37
[2020-03-26 16:00] VITALS: BP 126/36
[2020-03-26] MEDS ORDERED: TEMA15CA5 GT (16:51)
[2020-03-26] MEDS ORDERED: PANT40SU2 GT (16:51)
--- NOTE | 2020-03-26 17:06 | NUR ---
hemodialysis started at bedside
[2020-03-26 20:00] VITALS: BP 123/46
--- NOTE | 2020-03-26 22:20 | NUR ---
PAtient is discharged in improved condition; dayshift RN gave report at [facility]; IV HL and midline removed; GT flushed with 30 cc ml; dressing to sacrum, post thigh and heel intact; report given to ambulance personnel.
== END 2020-03-26 21:59 | DRG 356 ==
LOC: ER 22:42 → TELE3 03-15 01:28 → CCU 03-16 13:23 → TELE3 03-19 19:31 → TELE-TD3 03-20 04:44
PROVIDERS: ADMIT Internal Medicine; ATTEND Student in an Organized Health Care Education/Training Program
PROC: 30233N1 Transfusion of Nonautologous Red Blood Cells into Peripheral Vein, Percutaneous Approach (ICD-10-PCS; principal; 2020-03-15)
PROC: 5A1955Z Respiratory Ventilation, Greater than 96 Consecutive Hours (ICD-10-PCS; 2020-03-16)
PROC: 05HY33Z Insertion of Infusion Device into Upper Vein, Percutaneous Approach (ICD-10-PCS; 2020-03-16)
PROC: 5A2204Z Restoration of Cardiac Rhythm, Single (ICD-10-PCS; 2020-03-16)
PROC: 5A1D70Z Performance of Urinary Filtration, Intermittent, Less than 6 Hours Per Day (ICD-10-PCS; 2020-03-18)
PROC: 0JBR0ZZ Excision of Left Foot Subcutaneous Tissue and Fascia, Open Approach (ICD-10-PCS; 2020-03-20)
DX: K92.2 Gastrointestinal hemorrhage, unspecified (principal); I50.33 Acute on chronic diastolic (congestive) heart failure; N18.6 End stage renal disease; R53.2 Functional quadriplegia; E43 Unspecified severe protein-calorie malnutrition; J96.21 Acute and chronic respiratory failure with hypoxia; I21.A1 Myocardial infarction type 2; I46.9 Cardiac arrest, cause unspecified; D62 Acute posthemorrhagic anemia; I13.2 Hypertensive heart and chronic kidney disease with heart failure and with stage 5 chronic kidney disease, or end stage renal disease; G93.1 Anoxic brain damage, not elsewhere classified; L02.416 Cutaneous abscess of left lower limb; G61.0 Guillain-Barre syndrome; L97.428 Non-pressure chronic ulcer of left heel and midfoot with other specified severity; I47.2 Ventricular tachycardia; T17.990A Other foreign object in respiratory tract, part unspecified in causing asphyxiation, initial encounter; X58.XXXA Exposure to other specified factors, initial encounter; Y92.230 Patient room in hospital as the place of occurrence of the external cause; E03.9 Hypothyroidism, unspecified; E61.1 Iron deficiency; F41.9 Anxiety disorder, unspecified; F32.9 Major depressive disorder, single episode, unspecified; E78.5 Hyperlipidemia, unspecified; E11.22 Type 2 diabetes mellitus with diabetic chronic kidney disease; I25.10 Atherosclerotic heart disease of native coronary artery without angina pectoris; Z86.16 Personal history of COVID-19; Z93.0 Tracheostomy status; Z93.1 Gastrostomy status; Z99.2 Dependence on renal dialysis; I48.91 Unspecified atrial fibrillation; E88.09 Other disorders of plasma-protein metabolism, not elsewhere classified; L98.8 Other specified disorders of the skin and subcutaneous tissue; E11.621 Type 2 diabetes mellitus with foot ulcer; I25.2 Old myocardial infarction; Z87.01 Personal history of pneumonia (recurrent); Z91.15 Patient's noncompliance with renal dialysis; Z68.22 Body mass index [BMI] 22.0-22.9, adult
CPT/HCPCS: 36415; 36600; 70030-TC; 70450; 71045; 83735; 84100; 85018; 85025; 86850; 86900; 86901; 86920; 87040; 87070; 90937; 93005; 93307; 94002; 94003; A4217; A4663; C9113; G0378; J0171; J0696; J0885; J1940; J3370; J3490; J7030; J7040; J7050; J7060; P9016-BL; P9021

== ENCOUNTER 2020-04-02 20:02 | Inpatient (IN) | payer MEDICARE, OTHER ==
[~2020-04-02] VITALS: Ht 165.1 cm; Wt 62.7 kg
[~2020-04-02 20:02] MED LIST changes: -CEFT1VIA15 IV; -LEVO25TA9 GT; +PANT40SU2 GT; +SIME80TA16 GT; -SIME80TA45 GT; +TEMA15CA5 GT
[2020-04-02] MEDS ORDERED: PANTOPRAZOLE SODIUM IV 80 MG in IV DEXTROSE 5% 100 ML IV ONE (20:15)
[2020-04-02] MEDS ORDERED: methylPREDNISolone SOD SUCC 125 MG/2 ML VIAL IV ONE (20:30)
[2020-04-02] MEDS ORDERED: IPRATROPIUM BROMIDE 0.5 MG/2.5 ML NEBU NEB ONE (20:30)
[2020-04-02] MEDS ORDERED: ALBUTEROL SULFATE 2.5 MG/3 ML NEBU NEB ONE (20:30)
--- NOTE | 2020-04-02 20:30 | NUR ---
Patient BIB private ambulance from [facility] for low HGB 5.7. Patient upon arrival on trach vent with setting of A/C 15, tidal volume 550, PEEP 5, and FIO2 28. A/V shunt on left arm, G tube with abdominal binder. No distress noted.
[2020-04-02 20:35] LABS: *OCCULT BLOOD STOOL POSITIVE (NEGATIVE)
[2020-04-02] MEDS ORDERED: OMEP20TA5 GT (20:37)
[2020-04-02] MEDS ORDERED: ACET-2154 GT (20:37)
[2020-04-02] MEDS ORDERED: AMIN30LI25 GT (20:39)
[2020-04-02] MEDS ORDERED: PANTOPRAZOLE SODIUM 40 MG VIAL ONE (20:42)
[2020-04-02] MEDS ORDERED: methylPREDNISolone SOD SUCC 125 MG/2 ML VIAL ONE (20:42)
[2020-04-02 20:45] LABS: BASOPHILS # (AUTO) 0.1 K/uL (0.0-8.0); BASOPHILS % (AUTO) 1.4 % (0.0-2.0); EOSINOPHILS # (AUTO) 0.2 K/uL (0.0-0.7); EOSINOPHILS % (AUTO) 1.8 % (0.0-7.0); LYMPHOCYTES # (AUTO) 0.7 K/uL (20.0-40.0); LYMPHOCYTES % (AUTO) 7.7 % (20.5-51.5); MEAN CORPUSCULAR HEMOGLOBIN 28.3 uug (23.8-33.4); MEAN CORPUSCULAR HGB CONC 33 g/dL (32.5-36.3); MEAN CORPUSCULAR VOLUME 84.7 fL (73.0-96.2); MONOCYTES # (AUTO) 0.5 K/uL (2.0-10.0); MONOCYTES % (AUTO) 5.6 % (0.0-11.0); NEUTROPHILS # (AUTO) 7.9 K/uL (1.8-8.9); NEUTROPHILS % (AUTO) 83.5 % (38.5-71.5); PLATELET COUNT (AUTO) 340 K/uL (152-348); RED BLOOD CELL COUNT(AUTO) 2.29 MIL/uL (4.06-5.63); WHITE BLOOD COUNT (AUTO) 9.4 K/uL (3.6-10.2)
[2020-04-02 20:46] LABS: HEMATOCRIT 19.4 % (36.7-47.1)
[2020-04-02 20:47] LABS: HEMOGLOBIN 6.5 g/dL (12.5-16.3)
[2020-04-02 20:51] LABS: CREATININE 2.9 mg/dL (0.6-1.3); POTASSIUM 3.5 mmol/L (3.5-5.1)
[2020-04-02 20:53] LABS: MAGNESIUM 2.4 mg/dL (1.8-2.4); PHOSPHOROUS 2.5 mg/dL (2.5-4.9)
[2020-04-02 20:57] LABS: BILIRUBIN,DIRECT 0.2 mg/dL (0.0-0.2); BILIRUBIN,TOTAL 0.4 mg/dL (0.2-1.0); TOTAL PROTEIN, SERUM 8.3 g/dL (6.4-8.2)
[2020-04-02] MEDS ORDERED: ALBUTEROL SULFATE 2.5 MG/3 ML NEBU ONE (20:58)
[2020-04-02] MEDS ORDERED: IPRATROPIUM BROMIDE 0.5 MG/2.5 ML NEBU ONE (20:58)
[2020-04-02 21:06] LABS: EOSINOPHILS % (MANUAL) 4 % (0-8); LYMPHOCYTES % (MANUAL) 6 % (20-40); MONOCYTES % (MANUAL) 5 % (2-10); NEUTROPHILS % (MANUAL) 85 % (42-75)
--- NOTE | 2020-04-02 21:22 | NUR ---
Nanette Patiño from [facility] into eval patient.
[2020-04-02] MEDS ORDERED: HYDROCODONE/APAP 5-325MG TABLET PO PRN (22:30)
[2020-04-02] MEDS ORDERED: TEMAZEPAM 15 MG CAPSULE GT PRN (22:30)
[2020-04-02] MEDS ORDERED: SIMETHICONE 80 MG TAB.CHEW GT PRN (22:30)
[2020-04-02] MEDS ORDERED: ACETAMINOPHEN 325 MG TABLET PO PRN (22:30)
[2020-04-02] MEDS ORDERED: MAGNESIUM HYDROXIDE 30 ML LIQUID UDC PO PRN (22:30)
[2020-04-02] MEDS ORDERED: ONDANSETRON 4 MG/2 ML VIAL IV PRN (22:30)
--- NOTE | 2020-04-02 23:25 | NUR ---
Transfered to 3rd floor.
--- NOTE | 2020-04-02 23:30 | NUR ---
RECEIVED PT FROM ER VIA GURNEY. UNDER THE CARE OF SANDRA LINDA NP. DX: SEVERE ANEMIA. PT IN NO ACUTE RESPIRATORY DISTRESS. IV INTACT. PT RESTLESS AND CONFUSED. PT ON RECTAL TUBE. CORRECTION ASSESSMENT DONE. ADMISSION PROCESS AND CARE PLAN INITIATED.BELONGING LIST DONE. PT HAD MULTIPLE SKIN ISSUES LIKE SACRAL WOUND, LEFT POSTERIOR THIGH WOUND, LEFT HEEL SKIN ISSUE, LEFT FOREARM SKIN ISSUE . SAFETY AND COMFORT PROVIDED. WILL CONTINUE TO MONITOR.
[2020-04-02] MEDS ORDERED: LORAZEPAM 2 MG/1 ML VIAL IV PRN (23:45)
[2020-04-02] MEDS: MINOXIDIL 2.5 MG TABLET GT SCH (23:45)
[2020-04-03] VITALS (16 sets, daily range): BP systolic 126–178; BP diastolic 64–79
[2020-04-03] MEDS: ALBUTEROL SULFATE 2.5 MG/3 ML NEBU NEB SCH ×4 (01:43→19:52)
[2020-04-03] MEDS: IPRATROPIUM BROMIDE 0.5 MG/2.5 ML NEBU NEB SCH ×4 (01:43→19:52)
[2020-04-03] MEDS: MINOXIDIL 2.5 MG TABLET GT SCH (06:42)
[2020-04-03] MEDS: SUCRALFATE 1 G/10 ML LIQUID UDC GT SCH ×4 (06:42→21:02)
[2020-04-03] MEDS: hydrALAZINE HCL 50 MG TABLET GT SCH ×3 (06:42→21:04)
--- NOTE | 2020-04-03 06:45 | NUR ---
FIRST BLOOD TRANSFUSION NO REACTION. PT TOLERATED IT WELL. PT ONGOING SECOND TRANSFUSION. PT IN NO ACUTE DISTRESS. SAFETY AND COMFORT PROVIDED. WILL CONTINUE TO MONITOR.
--- NOTE | 2020-04-03 06:54 | NUR ---
PT DONE ON HIS SECOND TRANSFUSION. PT TOLERATED IT WELL. NO ADVERSE REACTION NOTED. PT IN NO ACUTE DISTRESS. IV INTACT. PRESCRIBED MEDICATION GIVEN AND PT TOLERATED IT WELL. SAFETY AND COMFORT PROVIDED. WILL ENDORSE TO INCOMING NURSE FOR CONTINUITY OF CARE.
[2020-04-03] MEDS ORDERED: Medication Not On Formulary EA (Protein Supplement (Prosource) 30 ML) PO SCH (08:00)
--- NOTE | 2020-04-03 08:00 | NUR ---
AWAKE AND ALERT BUT REMAINS CONFUSED, ON SOFT BILATERL RESTRAINTS DUE TO TENDENCY OF PULLING OUT TUBES. SR ON MONITOR. NO SS OF DISTRESS WITH CURRENT VENT SETTINGS TV 550- 28-15-5 SHILEY 8 SATURATING 100%
[2020-04-03] MEDS: LOSARTAN POTASSIUM 50 MG TABLET GT SCH ×2 (08:18→16:05)
[2020-04-03] MEDS: AMLODIPINE 10 MG TABLET GT SCH (08:18)
[2020-04-03] MEDS: ACIDOPHILUS/BULGARICUS CHEW TAB GT SCH ×2 (08:18→16:04)
[2020-04-03 08:21] LABS: BASOPHILS % (AUTO) 0.1 % (0.0-2.0); HEMATOCRIT 27.5 % (36.7-47.1); HEMOGLOBIN 9.3 g/dL (12.5-16.3); LYMPHOCYTES # (AUTO) 0.5 K/uL (20.0-40.0); LYMPHOCYTES % (AUTO) 4.1 % (20.5-51.5); MEAN CORPUSCULAR HEMOGLOBIN 28.8 uug (23.8-33.4); MEAN CORPUSCULAR HGB CONC 34 g/dL (32.5-36.3); MEAN CORPUSCULAR VOLUME 85.1 fL (73.0-96.2); MONOCYTES # (AUTO) 0.1 K/uL (2.0-10.0); MONOCYTES % (AUTO) 0.8 % (0.0-11.0); NEUTROPHILS # (AUTO) 11.1 K/uL (1.8-8.9); PLATELET COUNT (AUTO) 305 K/uL (152-348); RED BLOOD CELL COUNT(AUTO) 3.24 MIL/uL (4.06-5.63); WHITE BLOOD COUNT (AUTO) 11.7 K/uL (3.6-10.2)
[2020-04-03] MEDS ORDERED: PANTOPRAZOLE SODIUM 40 MG VIAL ONE (08:25)
--- NOTE | 2020-04-03 08:33 | NUR ---
protonix ivp not given patient on protonix drip
[2020-04-03] MEDS: PROTEIN SUPPLEMENT (PROSTAT) 30 ML LIQUID GT SCH (08:34)
[2020-04-03] MEDS: Z GUARD REMEDY PASTE 57 GM TUBE TOP PRN (08:35)
[2020-04-03 08:38] LABS: CREATININE 3.4 mg/dL (0.6-1.3); MAGNESIUM 2.5 mg/dL (1.8-2.4); PHOSPHOROUS 4.1 mg/dL (2.5-4.9); POTASSIUM 4.3 mmol/L (3.5-5.1)
[2020-04-03] MEDS ORDERED: PANTOPRAZOLE SODIUM IV 40 MG in IV DEXTROSE 5% 100 ML IV SCH (09:00)
[2020-04-03] MEDS: NEPRO 1000 ML GT PRN (09:16)
--- NOTE | 2020-04-03 13:02 | NUR ---
HEMODIALYSIS COMPLETED WITH HD FLUID OUT 1600 ML. TOLERATED HD WELL
[2020-04-03] MEDS ORDERED: SEVELAMER CARBONATE 800 MG POWD.PACK GT SCH (14:00)
[2020-04-03] MEDS: ALPRAZOLAM 0.5 MG TABLET GT PRN (15:17)
--- NOTE | 2020-04-03 19:30 | NUR ---
Received patient in bed, asleep. In no acute distress. No signs or symptoms of pain or discomfort. IV site on right FA intact and patent. AV shunt of left UA. Trach with vent in place. O2 sat at 100%. NSR on tele at 68/min. GT intact and patent. GT feeding infusing. Flexiseal intact. Will continue to monitor.
[2020-04-03] MEDS: SEVELAMER CARBONATE 800 MG POWD.PACK GT SCH (21:03)
[2020-04-03] MEDS: PANTOPRAZOLE SODIUM 40 MG VIAL IV SCH (21:03)
[2020-04-04 00:06] VITALS: BP 157/62
[2020-04-04] MEDS: ALBUTEROL SULFATE 2.5 MG/3 ML NEBU NEB SCH ×4 (01:36→19:34)
[2020-04-04] MEDS: IPRATROPIUM BROMIDE 0.5 MG/2.5 ML NEBU NEB SCH ×4 (01:36→19:34)
[2020-04-04 04:09] VITALS: BP 141/59
[2020-04-04] MEDS: hydrALAZINE HCL 50 MG TABLET GT SCH ×3 (06:30→22:04)
[2020-04-04] MEDS: SUCRALFATE 1 G/10 ML LIQUID UDC GT SCH ×4 (06:30→21:56)
[2020-04-04] MEDS: NEPRO 1000 ML GT PRN (06:42)
--- NOTE | 2020-04-04 06:57 | NUR ---
Patient slept through the night. No s/s of respiratory distress. No signs or symptoms of pain or discomfort. NSR on tele at 80/min IV site on right forearm intact and patent, AV shunt on left UA. Gtube feeding running at 50cc/hr. Patient tolerated medications well.
[2020-04-04 07:03] LABS: BILIRUBIN,TOTAL 0.6 mg/dL (0.2-1.0); CREATININE 2.9 mg/dL (0.6-1.3); MAGNESIUM 2.3 mg/dL (1.8-2.4); PHOSPHOROUS 2.9 mg/dL (2.5-4.9); POTASSIUM 3.1 mmol/L (3.5-5.1); TOTAL PROTEIN, SERUM 7.7 g/dL (6.4-8.2)
[2020-04-04] MEDS: PROTEIN SUPPLEMENT (PROSTAT) 30 ML LIQUID GT SCH (08:52)
[2020-04-04] MEDS: PANTOPRAZOLE SODIUM 40 MG VIAL IV SCH ×2 (08:54→21:56)
[2020-04-04] MEDS: LOSARTAN POTASSIUM 50 MG TABLET GT SCH ×2 (08:54→17:15)
[2020-04-04] MEDS: ACIDOPHILUS/BULGARICUS CHEW TAB GT SCH ×2 (08:54→17:15)
[2020-04-04] MEDS: AMLODIPINE 10 MG TABLET GT SCH (08:54)
[2020-04-04] MEDS: ALPRAZOLAM 0.5 MG TABLET GT PRN (08:54)
[2020-04-04] MEDS: SEVELAMER CARBONATE 800 MG POWD.PACK GT SCH (08:55)
[2020-04-04 09:37] LABS: BASOPHILS % (AUTO) 0.2 % (0.0-2.0); EOSINOPHILS % (AUTO) 0.1 % (0.0-7.0); HEMATOCRIT 26.2 % (36.7-47.1); LYMPHOCYTES # (AUTO) 0.8 K/uL (20.0-40.0); LYMPHOCYTES % (AUTO) 7.9 % (20.5-51.5); MEAN CORPUSCULAR HEMOGLOBIN 29.4 uug (23.8-33.4); MEAN CORPUSCULAR HGB CONC 35 g/dL (32.5-36.3); MEAN CORPUSCULAR VOLUME 85.3 fL (73.0-96.2); MONOCYTES # (AUTO) 0.8 K/uL (2.0-10.0); MONOCYTES % (AUTO) 7.9 % (0.0-11.0); NEUTROPHILS # (AUTO) 8.1 K/uL (1.8-8.9); NEUTROPHILS % (AUTO) 83.9 % (38.5-71.5); PLATELET COUNT (AUTO) 345 K/uL (152-348); RED BLOOD CELL COUNT(AUTO) 3.07 MIL/uL (4.06-5.63); WHITE BLOOD COUNT (AUTO) 9.6 K/uL (3.6-10.2)
[2020-04-04] MEDS ORDERED: POTASSIUM CHLORIDE 20 MEQ POWDER PACKET GT ONE (11:00)
--- NOTE | 2020-04-04 11:08 | NUR ---
WOUND CARE CONSULT: PT IS FOLLOWED BY SURGICAL AND PODIATRY TEAMS FOR WOUND CARE. DEFER TO SURGICAL TEAMS FOR WOUND TREATMENT PLAN. FIRST STEP LOW AIRLOSS MATTRESS IS ON ORDER. DISCUSSED SKIN PROTECTION WITH NURSING STAFF. MD IN AGREEMENT WITH PLAN OF CARE.
[2020-04-04 12:12] VITALS: BP 140/60
[2020-04-04] MEDS ORDERED: EPOETIN ALFA 10,000 UNITS/ML VIAL SQ SCH (14:00)
[2020-04-04 16:14] VITALS: BP 156/75
--- NOTE | 2020-04-04 19:45 | NUR ---
no changes noted during shift, patient kept comfortable, turned and repositioned every 2 hours, air mattress placed, meds administered as ordered.
--- NOTE | 2020-04-04 20:00 | NUR ---
ASLEEP,BILATERAL HANDS WITH MITTENS.ON VENT, GTUBE NEPHRO AT 50CC/HR TOLERATING FLUIDS WELL,RECTAL TUBE INTACT DRAINING GRENISH TO BROWNISH IN COLOR.HOB ELEVATED.
[2020-04-04 20:03] VITALS: BP 140/63
[2020-04-05] MEDS: IPRATROPIUM BROMIDE 0.5 MG/2.5 ML NEBU NEB SCH ×4 (00:31→19:18)
[2020-04-05] MEDS: ALBUTEROL SULFATE 2.5 MG/3 ML NEBU NEB SCH ×4 (00:32→19:18)
[2020-04-05 00:35] VITALS: BP 135/60
[2020-04-05 05:09] VITALS: BP 135/59
[2020-04-05 07:30] VITALS: BP 165/72
[2020-04-05] MEDS: hydrALAZINE HCL 50 MG TABLET GT SCH ×3 (07:52→21:13)
--- NOTE | 2020-04-05 08:00 | NUR ---
awake, non verbal, on vent with same settings, on continuous pulse ox 100% sat at this time, GT fdg nephro infusing at 50ml/hr- no residual noted, kept head of bed elevated, SR 95 on tele, continue to monitor
[2020-04-05] MEDS: SUCRALFATE 1 G/10 ML LIQUID UDC GT SCH ×4 (08:25→21:13)
[2020-04-05] MEDS: ACIDOPHILUS/BULGARICUS CHEW TAB GT SCH ×2 (08:25→16:50)
[2020-04-05] MEDS: PANTOPRAZOLE SODIUM 40 MG VIAL IV SCH ×2 (08:26→21:13)
[2020-04-05] MEDS: LOSARTAN POTASSIUM 50 MG TABLET GT SCH ×2 (08:26→16:50)
[2020-04-05] MEDS: AMLODIPINE 10 MG TABLET GT SCH (08:28)
[2020-04-05] MEDS: Z GUARD REMEDY PASTE 57 GM TUBE TOP PRN (08:29)
[2020-04-05] MEDS: PROTEIN SUPPLEMENT (PROSTAT) 30 ML LIQUID GT SCH (08:49)
[2020-04-05] MEDS ORDERED: SEVELAMER CARBONATE 800 MG POWD.PACK GT SCH (09:00)
[2020-04-05 09:17] LABS: BASOPHILS % (AUTO) 0.4 % (0.0-2.0); EOSINOPHILS # (AUTO) 0.1 K/uL (0.0-0.7); EOSINOPHILS % (AUTO) 0.9 % (0.0-7.0); HEMATOCRIT 26.4 % (36.7-47.1); LYMPHOCYTES # (AUTO) 0.7 K/uL (20.0-40.0); LYMPHOCYTES % (AUTO) 7.2 % (20.5-51.5); MEAN CORPUSCULAR HEMOGLOBIN 29.3 uug (23.8-33.4); MEAN CORPUSCULAR HGB CONC 34 g/dL (32.5-36.3); MEAN CORPUSCULAR VOLUME 85.6 fL (73.0-96.2); MONOCYTES # (AUTO) 0.7 K/uL (2.0-10.0); MONOCYTES % (AUTO) 7.2 % (0.0-11.0); NEUTROPHILS # (AUTO) 8.6 K/uL (1.8-8.9); NEUTROPHILS % (AUTO) 84.3 % (38.5-71.5); PLATELET COUNT (AUTO) 341 K/uL (152-348); RED BLOOD CELL COUNT(AUTO) 3.09 MIL/uL (4.06-5.63); WHITE BLOOD COUNT (AUTO) 10.2 K/uL (3.6-10.2)
[2020-04-05 09:24] LABS: CREATININE 3.5 mg/dL (0.6-1.3); MAGNESIUM 2.5 mg/dL (1.8-2.4); PHOSPHOROUS 2.2 mg/dL (2.5-4.9); POTASSIUM 3.3 mmol/L (3.5-5.1)
[2020-04-05 11:51] VITALS: BP 149/70
[2020-04-05 16:00] VITALS: BP 163/72
--- NOTE | 2020-04-05 17:44 | NUR ---
no change in condition, on vent with same settings saturating at 99-100 %, suctioned prn, tele SR, all needs attended and met, safety measures in place
--- NOTE | 2020-04-05 19:30 | NUR ---
Received patient in bed, awake. no s/s of acute distress. No pain or discomfort noted. IV site on right FA intact and patent. AV shunt of left UA. Trach with vent in place. O2 sat at 100%. GT intact and patent. Flexiseal intact. Will continue to monitor.
--- NOTE | 2020-04-05 19:45 | NUR ---
pt vomited; emesis care done; made sure pt did not aspirate; repositioned; zofran to be given
[2020-04-05 21:02] VITALS: BP 142/64
[2020-04-06 01:12] VITALS: BP 158/77
[2020-04-06] MEDS: ALBUTEROL SULFATE 2.5 MG/3 ML NEBU NEB SCH ×4 (01:31→19:42)
[2020-04-06] MEDS: IPRATROPIUM BROMIDE 0.5 MG/2.5 ML NEBU NEB SCH ×4 (01:31→19:42)
[2020-04-06] MEDS: hydrALAZINE HCL 50 MG TABLET GT SCH ×2 (05:43→14:07)
[2020-04-06 05:58] VITALS: BP 165/78
--- NOTE | 2020-04-06 06:45 | NUR ---
Patient slept through the night. No s/s of respiratory distress. No signs or symptoms of pain or discomfort. NSR on tele at 99/min. IV site on right forearm intact and patent, AV shunt on left UA. Gtube feeding running at 50cc/hr. Patient tolerated medications well. Will endorse to day shift nurse.
[2020-04-06 06:52] LABS: BASOPHILS # (AUTO) 0.1 K/uL (0.0-8.0); BASOPHILS % (AUTO) 0.5 % (0.0-2.0); EOSINOPHILS # (AUTO) 0.1 K/uL (0.0-0.7); HEMOGLOBIN 8.4 g/dL (12.5-16.3); LYMPHOCYTES # (AUTO) 0.7 K/uL (20.0-40.0); LYMPHOCYTES % (AUTO) 6.5 % (20.5-51.5); MEAN CORPUSCULAR HEMOGLOBIN 28.8 uug (23.8-33.4); MEAN CORPUSCULAR HGB CONC 34 g/dL (32.5-36.3); MEAN CORPUSCULAR VOLUME 85.6 fL (73.0-96.2); MONOCYTES # (AUTO) 0.6 K/uL (2.0-10.0); MONOCYTES % (AUTO) 5.2 % (0.0-11.0); NEUTROPHILS # (AUTO) 9.9 K/uL (1.8-8.9); NEUTROPHILS % (AUTO) 86.8 % (38.5-71.5); PLATELET COUNT (AUTO) 345 K/uL (152-348); RED BLOOD CELL COUNT(AUTO) 2.92 MIL/uL (4.06-5.63); WHITE BLOOD COUNT (AUTO) 11.4 K/uL (3.6-10.2)
[2020-04-06 07:10] LABS: MAGNESIUM 2.4 mg/dL (1.8-2.4); PHOSPHOROUS 1.8 mg/dL (2.5-4.9); POTASSIUM 3.2 mmol/L (3.5-5.1)
--- NOTE | 2020-04-06 08:00 | NUR ---
Pt cooperative. Pt's mittens off and not pulling on any of his tubing. Bed alarm on. Aspiration percaution. Pt on vent settings as ordered. Good bruit on left arm av shunt. IV on right forearm intact no s/s of infiltration. Pt on KCI bed. Call light is within reach. Tboi Garcia from nephrology pt is to have dialysis today.
[2020-04-06] MEDS: ACIDOPHILUS/BULGARICUS CHEW TAB GT SCH ×2 (09:29→16:56)
[2020-04-06] MEDS: AMLODIPINE 10 MG TABLET GT SCH (09:29)
[2020-04-06] MEDS: LOSARTAN POTASSIUM 50 MG TABLET GT SCH ×2 (09:29→16:55)
[2020-04-06] MEDS: PANTOPRAZOLE SODIUM 40 MG VIAL IV SCH (09:32)
[2020-04-06] MEDS: PROTEIN SUPPLEMENT (PROSTAT) 30 ML LIQUID GT SCH (09:35)
[2020-04-06] MEDS: SUCRALFATE 1 G/10 ML LIQUID UDC GT SCH ×3 (09:36→16:30)
[2020-04-06 12:00] VITALS: BP 155/66
[2020-04-06] MEDS ORDERED: CLONIDINE-TTS 1 PATCH TD SCH (13:30)
[2020-04-06] MEDS: NEPRO 1000 ML GT PRN (14:16)
[2020-04-06 16:55] VITALS: BP 136/67
[2020-04-06] MEDS ORDERED: MENT71OI TOP (17:19)
[2020-04-06] MEDS ORDERED: CLON1PAT TD (17:19)
[2020-04-06] MEDS ORDERED: ACET325T53 PO (17:19)
[2020-04-06] MEDS ORDERED: EPOE1VIA12 IJ (17:19)
--- NOTE | 2020-04-06 17:41 | NUR ---
Unable to give afternoon po meds secondary to pt having Hemodialysis.
--- NOTE | 2020-04-06 18:57 | NUR ---
HD taken out 1 liters. PT is in no acute distress. Pt comfortable and tolerated dialysis procedure. Call light is within reach.
--- NOTE | 2020-04-06 20:01 | NUR ---
Patient in bed .HOB elevated with trach in place vent setting as ordered.No s/s of distress noted.Rt was bedside.Patient was suctioned PRN .Iv on right FA 18 g patent and intact. gtube in place , onofre catheter and rectal tube. AV shunt on left upper arm,dialysis was done today per AM nurse report.Called [facility] and gave report to Roxana /RN .Patient picked up by [facility] ambulance to transport to [facility] rehab.VSS stable .NO belongings
== END 2020-04-06 21:00 | DRG 377 ==
LOC: ER 20:06 → TELE3 22:36 → TELE-TD3 04-03 07:42
PROVIDERS: ADMIT Internal Medicine; ATTEND Internal Medicine
PROC: 5A1945Z Respiratory Ventilation, 24-96 Consecutive Hours (ICD-10-PCS; 2020-04-02)
PROC: 30233N1 Transfusion of Nonautologous Red Blood Cells into Peripheral Vein, Percutaneous Approach (ICD-10-PCS; principal; 2020-04-03)
PROC: 5A1D70Z Performance of Urinary Filtration, Intermittent, Less than 6 Hours Per Day (ICD-10-PCS; 2020-04-03)
DX: K92.2 Gastrointestinal hemorrhage, unspecified (principal); N18.6 End stage renal disease; I50.33 Acute on chronic diastolic (congestive) heart failure; E43 Unspecified severe protein-calorie malnutrition; I13.2 Hypertensive heart and chronic kidney disease with heart failure and with stage 5 chronic kidney disease, or end stage renal disease; Z99.11 Dependence on respirator [ventilator] status; J96.10 Chronic respiratory failure, unspecified whether with hypoxia or hypercapnia; D68.69 Other thrombophilia; L97.429 Non-pressure chronic ulcer of left heel and midfoot with unspecified severity; G93.40 Encephalopathy, unspecified; E11.22 Type 2 diabetes mellitus with diabetic chronic kidney disease; Z99.2 Dependence on renal dialysis; Z68.22 Body mass index [BMI] 22.0-22.9, adult; Z86.74 Personal history of sudden cardiac arrest; Z20.822 Contact with and (suspected) exposure to COVID-19; Z86.16 Personal history of COVID-19; Z87.01 Personal history of pneumonia (recurrent); Z87.891 Personal history of nicotine dependence; G83.89 Other specified paralytic syndromes; G65.0 Sequelae of Guillain-Barre syndrome; Z91.15 Patient's noncompliance with renal dialysis; I48.91 Unspecified atrial fibrillation; E88.09 Other disorders of plasma-protein metabolism, not elsewhere classified; E03.9 Hypothyroidism, unspecified; E11.621 Type 2 diabetes mellitus with foot ulcer; L98.8 Other specified disorders of the skin and subcutaneous tissue; S71.102A Unspecified open wound, left thigh, initial encounter; X58.XXXA Exposure to other specified factors, initial encounter; Y93.9 Activity, unspecified; Y92.129 Unspecified place in nursing home as the place of occurrence of the external cause; I25.10 Atherosclerotic heart disease of native coronary artery without angina pectoris; I35.1 Nonrheumatic aortic (valve) insufficiency; D63.8 Anemia in other chronic diseases classified elsewhere; E78.5 Hyperlipidemia, unspecified; I25.2 Old myocardial infarction; M62.562 Muscle wasting and atrophy, not elsewhere classified, left lower leg; M62.561 Muscle wasting and atrophy, not elsewhere classified, right lower leg
CPT/HCPCS: 36415; 70030-TC; 71045; 83735; 84100; 85025; 85730; 86850; 86900; 86901; 86920; 93005; 94002; 94003; 94640; 94664; A4217; A4663; C9113; G0378; J0885; J2060; J2405; J2930; J3590; J7050; J7060; J7070; P9016-BL; P9021

== ENCOUNTER 2020-05-09 20:09 | Inpatient (IN) | payer MEDICARE, OTHER ==
[~2020-05-09] VITALS: Ht 165.1 cm; Wt 59.9 kg
[~2020-05-09 20:09] MED LIST changes: +ACET325T53 PO; -ACET650S26 NG; -ACID1TAB4 GT; +AMIN30LI25 GT; -AMIN887L GT; -CHOL10002 GT; +CLON1PAT TD; +EPOE1VIA12 IJ; -EPOE1VIA12 SQ; -FOLI0.8T2 GT; -IPRA3AMP22 HHN; +MENT71OI TOP; -Nepro GT; +OMEP20TA5 GT; -PANT40SU2 GT; -PROT30LI PO; -SUCR1ORA GT
--- NOTE | 2020-05-09 20:30 | NUR ---
Note raz in ED - 05/10/20 at 0040 by KARL pt on vent; settings are TV 550, PEEP 5, FIO2 40%, Rate 15.
--- NOTE | 2020-05-09 20:30 | NUR ---
pt on vent to trach settings are: TV 550, PEEP 5, FIO2 40%, Rate 15
[2020-05-09] MEDS ORDERED: ACID1TAB4 GT (20:37)
[2020-05-09] MEDS ORDERED: SUCR1TAB GT (20:37)
[2020-05-09 20:43] LABS: BASOPHILS # (AUTO) 0.1 K/uL (0.0-8.0); MEAN CORPUSCULAR VOLUME 83.4 fL (73.0-96.2); MONOCYTES # (AUTO) 0.8 K/uL (2.0-10.0); WHITE BLOOD COUNT (AUTO) 8.5 K/uL (3.6-10.2)
[2020-05-09 20:44] LABS: BASOPHILS % (AUTO) 0.9 % (0.0-2.0); EOSINOPHILS % (AUTO) 0.3 % (0.0-7.0); LYMPHOCYTES % (AUTO) 11.3 % (20.5-51.5); MEAN CORPUSCULAR HEMOGLOBIN 27.2 uug (23.8-33.4); MEAN CORPUSCULAR HGB CONC 33 g/dL (32.5-36.3); MONOCYTES % (AUTO) 9.3 % (0.0-11.0); NEUTROPHILS # (AUTO) 6.7 K/uL (1.8-8.9); NEUTROPHILS % (AUTO) 78.2 % (38.5-71.5); PLATELET COUNT (AUTO) 314 K/uL (152-348)
[2020-05-09 20:46] LABS: RED BLOOD CELL COUNT(AUTO) 2.35 MIL/uL (4.06-5.63)
[2020-05-09 20:47] LABS: BILIRUBIN,DIRECT 0.2 mg/dL (0.0-0.2); BILIRUBIN,TOTAL 0.5 mg/dL (0.2-1.0); CREATININE 2.3 mg/dL (0.6-1.3); POTASSIUM 4.1 mmol/L (3.5-5.1); TOTAL PROTEIN, SERUM 7.3 g/dL (6.4-8.2)
[2020-05-09 20:49] LABS: HEMATOCRIT 19.6 % (36.7-47.1); HEMOGLOBIN 6.4 g/dL (12.5-16.3)
--- NOTE | 2020-05-09 21:50 | NUR ---
Dr. Abreu on panel call with Santiago Jamison DNP. Patient accepted for admission to [facility], diagnosis: Anemia.
--- NOTE | 2020-05-09 22:00 | NUR ---
Patient resting on bed, eyes closed. No acute distress is noted.
--- NOTE | 2020-05-09 22:32 | NUR ---
Machine beeping stating high PIP, respiratory notified to come to bedside.
[2020-05-09 22:45] LABS: BAND % (MANUAL) 2 % (0-10); LYMPHOCYTES % (MANUAL) 12 % (20-40); METAMYELOCYTES % 1 % (0-1); MONOCYTES % (MANUAL) 4 % (2-10); NEUTROPHILS % (MANUAL) 81 % (42-75)
[2020-05-09] MEDS ORDERED: MINOXIDIL 2.5 MG TABLET GT SCH (23:00)
[2020-05-09] MEDS ORDERED: Z GUARD REMEDY PASTE 57 GM TUBE TOP PRN (23:00)
[2020-05-09] MEDS ORDERED: MAGNESIUM HYDROXIDE 30 ML LIQUID UDC PO PRN (23:00)
[2020-05-09] MEDS ORDERED: MORPHINE SULFATE 2 MG/1 ML DISP.SYRIN IV PRN (23:00)
[2020-05-09] MEDS ORDERED: SIMETHICONE 80 MG TAB.CHEW GT PRN (23:00)
[2020-05-09] MEDS ORDERED: ONDANSETRON 4 MG/2 ML VIAL IV PRN (23:00)
[2020-05-09] MEDS ORDERED: ACETAMINOPHEN 325 MG TABLET PO PRN (23:00)
[2020-05-09] MEDS ORDERED: CLONIDINE-TTS 1 PATCH TD SCH (23:00)
[2020-05-09] MEDS ORDERED: EPOETIN ALFA 10,000 UNITS/ML VIAL SQ SCH (23:00)
[2020-05-09] MEDS ORDERED: ONDANSETRON HCL 4 MG TABLET GT PRN (23:00)
--- NOTE | 2020-05-09 23:06 | NUR ---
Report given to IBRAHIMA Harding.
--- NOTE | 2020-05-09 23:25 | NUR ---
Pt. admitted to tele 312, under care of Dr. Jamison. Belongs List completed, transported with all original paperwork, with blood, via [place] w/ respiratory therapist.
--- NOTE | 2020-05-09 23:45 | NUR ---
ADMITTED PATIENT ON TELE FLOOR, UNDER THE CARE WILFRED ROBERTSON FIRE PROTECTION DESIGNER. PATIENT AWAKE VERBALLY RESPONSIVE, NO SOB NO CHEST NOTED, PATIENT ON TRACH WITH VENT PER MD ORDERED. PATIENT LEFT UPPER ARM AV SHUNT WITH DRESSING NO BLEEDING NOTED. PATIENT ON GT PATENT, PATIENT HAS SACRUM, LEFT GROIN WOUND, BILATERAL GROIN REDNESS, AND SCROTUM REDNESS. CONT TO MONITOR.
[2020-05-10] VITALS (12 sets, daily range): BP systolic 116–152; BP diastolic 30–62
--- NOTE | 2020-05-10 00:45 | NUR ---
PATIENT STARTED BLOOD TRANSFUSION, WITH ADVERSE REACTION NOTED, NO SOB NO CHEST PAIN, NO ITCHING NOTED. V/S STABLE, CONT TO MONITOR.
--- NOTE | 2020-05-10 02:48 | NUR ---
TRANSFUSED 1 UNIT PRBC TOLERATE WELL, NO ADVERSE REACTION NOTED, CONT TO MONITOR.
[2020-05-10] MEDS: hydrALAZINE HCL 50 MG TABLET GT SCH ×3 (06:00→22:00)
[2020-05-10 06:02] LABS: BASOPHILS # (AUTO) 0.1 K/uL (0.0-8.0); EOSINOPHILS % (AUTO) 0.5 % (0.0-7.0); HEMATOCRIT 24.5 % (36.7-47.1); HEMOGLOBIN 7.9 g/dL (12.5-16.3); LYMPHOCYTES # (AUTO) 0.8 K/uL (20.0-40.0); LYMPHOCYTES % (AUTO) 10.8 % (20.5-51.5); MEAN CORPUSCULAR HEMOGLOBIN 26.9 uug (23.8-33.4); MEAN CORPUSCULAR HGB CONC 32 g/dL (32.5-36.3); MEAN CORPUSCULAR VOLUME 83.3 fL (73.0-96.2); MONOCYTES # (AUTO) 0.6 K/uL (2.0-10.0); MONOCYTES % (AUTO) 8.8 % (0.0-11.0); NEUTROPHILS # (AUTO) 5.8 K/uL (1.8-8.9); NEUTROPHILS % (AUTO) 78.9 % (38.5-71.5); PLATELET COUNT (AUTO) 316 K/uL (152-348); RED BLOOD CELL COUNT(AUTO) 2.94 MIL/uL (4.06-5.63); WHITE BLOOD COUNT (AUTO) 7.4 K/uL (3.6-10.2)
[2020-05-10 06:21] LABS: BILIRUBIN,TOTAL 0.6 mg/dL (0.2-1.0); CREATININE 2.6 mg/dL (0.6-1.3); MAGNESIUM 2.3 mg/dL (1.8-2.4); POTASSIUM 4.1 mmol/L (3.5-5.1); TOTAL PROTEIN, SERUM 7.6 g/dL (6.4-8.2)
[2020-05-10] MEDS ORDERED: PANTOPRAZOLE SODIUM 40 MG TABLET.DR PO SCH (07:00)
[2020-05-10] MEDS ORDERED: SEVELAMER CARBONATE 800 MG POWD.PACK GT SCH ×2 (08:00)
[2020-05-10] MEDS: SUCRALFATE 1 G TABLET GT SCH ×4 (08:49→22:12)
[2020-05-10] MEDS: PANTOPRAZOLE ORAL SUSPENSION 40 MG SUSPDR.PKT GT SCH ×2 (08:49→17:32)
[2020-05-10] MEDS: ZINC SULFATE 220 MG CAPSULE GT SCH (08:49)
[2020-05-10] MEDS: ACIDOPHILUS/BULGARICUS CHEW TAB GT SCH ×2 (08:49→17:32)
[2020-05-10] MEDS: LOSARTAN POTASSIUM 50 MG TABLET GT SCH ×2 (08:50→17:00)
[2020-05-10] MEDS: PROTEIN SUPPLEMENT (PROSTAT) 30 ML LIQUID GT SCH (08:51)
[2020-05-10] MEDS: AMLODIPINE 10 MG TABLET GT SCH (08:51)
[2020-05-10] MEDS: Z GUARD REMEDY PASTE 57 GM TUBE TOP PRN (08:52)
[2020-05-10] MEDS ORDERED: Medication Not On Formulary EA (Omeprazole 40 MG) GT SCH (09:00)
[2020-05-10] MEDS ORDERED: CLONIDINE-TTS 1 PATCH TD SCH (09:00)
[2020-05-10] MEDS ORDERED: Medication Not On Formulary EA (Amino Acids/Protein Hydrolys (Prosource Liquid) 30 ML) GT SCH (09:00)
[2020-05-10] MEDS: NEPRO 1000 ML GT PRN (09:51)
--- NOTE | 2020-05-10 11:13 | NUR ---
Recieved patient in bed, nonverbal, able to follow simple commands. No s/s of distress. Patient on a Peg tube . Checked placement with no residual noted. Peg tube feeding of Nephro running at 30ml/hr, tolerating well. Head of bed @ 45 degrees. All due meds given as ordered. Patient on a ventilator with tidal volume of 550, PEEP of 5 , Fio2 of 40% and rate of 15. Call light placed within reach. All needs met promptly. Will continue to monitor.
[2020-05-10] MEDS: MINOXIDIL 2.5 MG TABLET GT SCH ×2 (14:35→22:14)
--- NOTE | 2020-05-10 15:54 | NUR ---
Seen by SUPERVISOR FILM PROCESSING for Nephro with order for dialysis. patient tolerating feeding at 30 cc /hr. Saturating 100% with current vent setting 15-550-40-5. Awaiting dialysis as ordered. Wound care done remain sinus rhythm on monitor.
[2020-05-10 15:59] LABS: *OCCULT BLOOD STOOL POSITIVE (NEGATIVE)
--- NOTE | 2020-05-10 19:30 | NUR ---
Report received. Patient awake with flat affect. Trache Shiley #8 to mechanical ventilator settings as follows: AC=15, MZ=856 ml, PEEP=5 and FIO2=40%. NAD noted. Dialysis started by Manny white RN. Addendum: 05/11/20 at 0008 by SERGIO GUTIERREZ RN Amended: Links added.
--- NOTE | 2020-05-10 20:30 | NUR ---
Patient's /family called; updated of patient's condition. Dialysis in progress.
--- NOTE | 2020-05-10 22:05 | NUR ---
Dialysis completed; 1.5L out as per hvac sales representative. Cleaned for moderate amount of semi soft brown stools. Turned and repositioned. HOB elevated above 30 degrees at all times. GT meds given. Tolerating Feedings fairly well; rate increased to 40 ml/H.
[2020-05-11] VITALS (7 sets, daily range): BP systolic 126–150; BP diastolic 51–56
[2020-05-11] MEDS: ACETAMINOPHEN 325 MG TABLET PO PRN (04:56)
[2020-05-11] MEDS: Z GUARD REMEDY PASTE 57 GM TUBE TOP PRN (04:56)
--- NOTE | 2020-05-11 05:00 | NUR ---
Tbwz=646.3. Cooling measures done; Tylenol given. Had another liquid yellow brown BM. Cleaned; skin care provided.
[2020-05-11] MEDS: MINOXIDIL 2.5 MG TABLET GT SCH ×3 (05:36→21:17)
[2020-05-11] MEDS: hydrALAZINE HCL 50 MG TABLET GT SCH ×3 (05:37→21:17)
--- NOTE | 2020-05-11 06:11 | NUR ---
Remains on the same vent settings: O2 sats above 94%. Addendum: 05/11/20 at 0611 by SERGIO GUTIERREZ RN Amended: Links added.
[2020-05-11] MEDS: PANTOPRAZOLE ORAL SUSPENSION 40 MG SUSPDR.PKT GT SCH ×2 (06:21→16:30)
[2020-05-11] MEDS: SUCRALFATE 1 G TABLET GT SCH ×4 (06:44→21:17)
[2020-05-11 07:26] LABS: BASOPHILS # (AUTO) 0.1 K/uL (0.0-8.0); EOSINOPHILS % (AUTO) 0.8 % (0.0-7.0); HEMATOCRIT 24.4 % (36.7-47.1); HEMOGLOBIN 7.9 g/dL (12.5-16.3); LYMPHOCYTES # (AUTO) 0.6 K/uL (20.0-40.0); LYMPHOCYTES % (AUTO) 10.4 % (20.5-51.5); MEAN CORPUSCULAR HGB CONC 32 g/dL (32.5-36.3); MEAN CORPUSCULAR VOLUME 83.5 fL (73.0-96.2); MONOCYTES # (AUTO) 0.6 K/uL (2.0-10.0); MONOCYTES % (AUTO) 10.3 % (0.0-11.0); NEUTROPHILS # (AUTO) 4.6 K/uL (1.8-8.9); NEUTROPHILS % (AUTO) 77.5 % (38.5-71.5); PLATELET COUNT (AUTO) 304 K/uL (152-348); RED BLOOD CELL COUNT(AUTO) 2.92 MIL/uL (4.06-5.63); WHITE BLOOD COUNT (AUTO) 5.9 K/uL (3.6-10.2)
[2020-05-11 07:36] LABS: CREATININE 2.3 mg/dL (0.6-1.3); MAGNESIUM 2.4 mg/dL (1.8-2.4); PHOSPHOROUS 2.6 mg/dL (2.5-4.9); POTASSIUM 3.5 mmol/L (3.5-5.1)
[2020-05-11] MEDS: ZINC SULFATE 220 MG CAPSULE GT SCH (08:39)
[2020-05-11] MEDS: AMLODIPINE 10 MG TABLET GT SCH (08:39)
[2020-05-11] MEDS: LOSARTAN POTASSIUM 50 MG TABLET GT SCH ×2 (08:39→16:33)
[2020-05-11] MEDS: ACIDOPHILUS/BULGARICUS CHEW TAB GT SCH ×2 (08:39→16:30)
[2020-05-11] MEDS: PROTEIN SUPPLEMENT (PROSTAT) 30 ML LIQUID GT SCH (08:42)
[2020-05-11] MEDS: ALPRAZOLAM 0.5 MG TABLET GT PRN ×2 (09:22→23:18)
--- NOTE | 2020-05-11 09:56 | NUR ---
Received patient in bed, open his eyes and make eye contact. Patient is non verbal. No s/s of distress. On Vent setting of 15-550-40-5 patient saturating at 100%. Turning and repositioning rendered. All due meds given as ordered and tolerated well. Call light placed within easy reach. All needs attended. Peg tube placement checked by auscultation and no gastric residual noted. At 1000 started the feeding of Nepro at a rate of 40ml/hr. Kept head of bed at 45 degrees. Will continue to monitor.
--- NOTE | 2020-05-11 20:40 | NUR ---
Patient Lala called, updated on pt current condition and also obtained consent for hemodialysis, witnessed by this nurse and RN Ralph.
--- NOTE | 2020-05-11 21:50 | NUR ---
Received patient lying in bed. Asleep at this time. In no apparent distress. Trach with vent in place. O2 sat at % at this time. Secretions suctioned by RT at bedside. PIV on right wrist intact and patent. Left upper arm AV shunt intact. NSR on tele at 87/min. GT feeding on going at 50cc/hr at this time. Safety measure initiated. Continue to monitor.
--- NOTE | 2020-05-11 22:00 | NUR ---
Increased GT feeding to 60cc/hr per order. Continue to monitor.
[2020-05-12] VITALS (9 sets, daily range): BP systolic 110–155; BP diastolic 37–68
--- NOTE | 2020-05-12 | NUR ---
Patient lying in bed comfortable. Awake and alert x1 only. Non-verbal. Xanax given for signs of anxiety. Suction secretions PRN and able to obtain whitish secretions. NSR on tele at 86/min. Turn and reposition for comfort. Continue to monitor.
[2020-05-12] MEDS: MINOXIDIL 2.5 MG TABLET GT SCH (05:18)
[2020-05-12] MEDS: ACETAMINOPHEN 325 MG TABLET PO PRN (05:18)
[2020-05-12] MEDS: hydrALAZINE HCL 50 MG TABLET GT SCH ×3 (05:52→21:02)
[2020-05-12] MEDS: PANTOPRAZOLE ORAL SUSPENSION 40 MG SUSPDR.PKT GT SCH ×2 (06:02→16:45)
--- NOTE | 2020-05-12 06:16 | NUR ---
Pt appears calm and comfortable. No further anxiety noted. Temp 99.8 axillary. Cooling measure and Tylenol 650mg via GT provided. Turned and reposition for comfort. Trach with vent in place. O2 sat at 99%. Suction secretions PRN. NSR on tele at 74/min. Needs anticipated to and met. Safety measure maintained.
[2020-05-12] MEDS: SUCRALFATE 1 G TABLET GT SCH ×4 (06:33→21:02)
[2020-05-12 07:12] LABS: CREATININE 2.9 mg/dL (0.6-1.3); POTASSIUM 3.8 mmol/L (3.5-5.1)
[2020-05-12 07:13] LABS: EOSINOPHILS # (AUTO) 0.1 K/uL (0.0-0.7); EOSINOPHILS % (AUTO) 1.7 % (0.0-7.0); HEMATOCRIT 22.5 % (36.7-47.1); LYMPHOCYTES # (AUTO) 0.8 K/uL (20.0-40.0); MONOCYTES # (AUTO) 0.6 K/uL (2.0-10.0); NEUTROPHILS % (AUTO) 72.8 % (38.5-71.5); RED BLOOD CELL COUNT(AUTO) 2.71 MIL/uL (4.06-5.63)
[2020-05-12 07:15] LABS: BASOPHILS # (AUTO) 0.1 K/uL (0.0-8.0); BASOPHILS % (AUTO) 0.9 % (0.0-2.0); MEAN CORPUSCULAR HEMOGLOBIN 27.2 uug (23.8-33.4); MEAN CORPUSCULAR HGB CONC 33 g/dL (32.5-36.3); MONOCYTES % (AUTO) 10.6 % (0.0-11.0); NEUTROPHILS # (AUTO) 4.4 K/uL (1.8-8.9); PLATELET COUNT (AUTO) 262 K/uL (152-348)
[2020-05-12 07:48] LABS: HEMOGLOBIN 7.4 g/dL (12.5-16.3)
--- NOTE | 2020-05-12 08:00 | NUR ---
Patient in bed, able to open his eyes and make eye contact. No s/s of distress. Trach intact with vent setting of TV-550, PEEP-5, FiO2 40 and rate of 15. Peg tube in place, head of bed at 45 degrees. Turning and repositioning rendered. All due meds given as ordered. Peg tube tolerating well at 65ml/hr . Will continue to monitor.
[2020-05-12] MEDS: ACIDOPHILUS/BULGARICUS CHEW TAB GT SCH ×2 (08:55→16:45)
[2020-05-12] MEDS: ZINC SULFATE 220 MG CAPSULE GT SCH (08:55)
[2020-05-12] MEDS: AMLODIPINE 10 MG TABLET GT SCH (08:57)
[2020-05-12] MEDS: LOSARTAN POTASSIUM 50 MG TABLET GT SCH ×2 (08:57→16:45)
[2020-05-12] MEDS: PROTEIN SUPPLEMENT (PROSTAT) 30 ML LIQUID GT SCH (08:58)
[2020-05-12] MEDS ORDERED: EPOETIN ALFA-EPBX 10,000 UNIT/ML VIAL SQ SCH (14:00)
--- NOTE | 2020-05-12 15:57 | NUR ---
lab bypassed form for kappa/lamda light chains beta 2 microglobulin sent to the lab
[2020-05-12] MEDS: ALPRAZOLAM 0.5 MG TABLET GT PRN (17:55)
--- NOTE | 2020-05-12 19:40 | NUR ---
Received patient lying in bed. Asleep. Hemodialysis on going. In no apparent distress. No signs or symptoms of pain or SOB. PIV on right wrist intact and patent. NSR on tele at 70/min. GT feeding on going at 65cc/hr. Safety measure initiated. Continue to monitor.
--- NOTE | 2020-05-12 20:20 | NUR ---
Patient done with dialysis with 1L out per dialysis nurse. Pt alert and awake at this time. In no acute distress. No signs of pain or discomfort. AV shunt with new dressing intact, clean and dry.
--- NOTE | 2020-05-12 20:22 | NUR ---
electronic warfare operator reported latest BP 155/68 with HR of 74.
[2020-05-12] MEDS: TEMAZEPAM 15 MG CAPSULE GT PRN (23:39)
[2020-05-13] VITALS (8 sets, daily range): BP systolic 103–151; BP diastolic 56–75
--- NOTE | 2020-05-13 06:14 | NUR ---
Patient Awake and alert x1 only. Non-verbal. Trach with vent in place. Suction secretions PRN and able to obtain small amount of whitish phlegm. HOB kept elevated. NSR on tele at 84/min. GT feeding and flushing well tolerated. Incontinent care provided. Turn and reposition for comfort. Safety measure maintained.
[2020-05-13] MEDS: hydrALAZINE HCL 50 MG TABLET GT SCH ×3 (06:25→21:01)
[2020-05-13] MEDS: PANTOPRAZOLE ORAL SUSPENSION 40 MG SUSPDR.PKT GT SCH ×2 (06:25→17:00)
[2020-05-13] MEDS: ALPRAZOLAM 0.5 MG TABLET GT PRN (06:25)
[2020-05-13] MEDS: SUCRALFATE 1 G TABLET GT SCH ×4 (06:32→20:53)
[2020-05-13 06:47] LABS: BASOPHILS # (AUTO) 0.1 K/uL (0.0-8.0); BASOPHILS % (AUTO) 0.7 % (0.0-2.0); EOSINOPHILS # (AUTO) 0.2 K/uL (0.0-0.7); EOSINOPHILS % (AUTO) 2.2 % (0.0-7.0); HEMOGLOBIN 8.9 g/dL (12.5-16.3); LYMPHOCYTES # (AUTO) 0.7 K/uL (20.0-40.0); LYMPHOCYTES % (AUTO) 8.9 % (20.5-51.5); MEAN CORPUSCULAR HEMOGLOBIN 26.7 uug (23.8-33.4); MEAN CORPUSCULAR HGB CONC 32 g/dL (32.5-36.3); MEAN CORPUSCULAR VOLUME 83.4 fL (73.0-96.2); MONOCYTES # (AUTO) 0.7 K/uL (2.0-10.0); MONOCYTES % (AUTO) 8.5 % (0.0-11.0); NEUTROPHILS # (AUTO) 6.5 K/uL (1.8-8.9); NEUTROPHILS % (AUTO) 79.7 % (38.5-71.5); PLATELET COUNT (AUTO) 309 K/uL (152-348); RED BLOOD CELL COUNT(AUTO) 3.35 MIL/uL (4.06-5.63); WHITE BLOOD COUNT (AUTO) 8.1 K/uL (3.6-10.2)
[2020-05-13 07:28] LABS: THYROID STIMULATING HORMONE 7.433 mIU/mL (0.358-3.740)
[2020-05-13 07:39] LABS: CREATININE 2.7 mg/dL (0.6-1.3); MAGNESIUM 2.4 mg/dL (1.8-2.4); PHOSPHOROUS 2.1 mg/dL (2.5-4.9); POTASSIUM 3.9 mmol/L (3.5-5.1)
--- NOTE | 2020-05-13 08:00 | NUR ---
Pt lethargic but arousable to touch. Pt follows commands - ie instructed pt to squeeze my hand. Vent settings as ordered. right arm iv flushing well. Pt on KCI bed, turning q 2 hrs implemented. heels floated. Noted L groin scarring from prior debridement. No drainage noted. Sacral wound noted with sloughing and dressing changed as ordered. Call light is within reach.
[2020-05-13] MEDS: ZINC SULFATE 220 MG CAPSULE GT SCH (08:17)
[2020-05-13] MEDS: LOSARTAN POTASSIUM 50 MG TABLET GT SCH ×2 (08:20→17:00)
[2020-05-13] MEDS: ACIDOPHILUS/BULGARICUS CHEW TAB GT SCH ×2 (08:20→17:00)
[2020-05-13] MEDS: AMLODIPINE 10 MG TABLET GT SCH (08:21)
[2020-05-13] MEDS: PROTEIN SUPPLEMENT (PROSTAT) 30 ML LIQUID GT SCH (08:21)
[2020-05-13] MEDS: NEPRO 1000 ML GT PRN (08:26)
--- NOTE | 2020-05-13 11:30 | NUR ---
Dr Foote P. called for nursing to get consent for possible EGD and Colonoscopy and NPO P MN final decision to proceed will be called in.
--- NOTE | 2020-05-13 13:48 | NUR ---
WOUND CARE CONSULT: PT PRESENTS WITH SACRAL UNSTAGEABLE ULCER, RASH TO GROIN AREAS AND PERINEUM, SCAR TO LEFT POSTERIOR THIGH AND HEEL SCARS WITH DISCOLORATION, PRESENT ON ADMISSION. RECOMMEND SURGICAL CONSULT. DR KUMAR NOTIFIED OF CONSULT REQUEST. PT IS ON FIRST STEP [facility]. RECOMMENDATIONS MADE FOR SKIN PROTECTION. DISCUSSED WITH NURSING STAFF. Addendum: 05/13/20 at 1350 by GABI NICHOLSON RN Amended: Links added.
--- NOTE | 2020-05-13 16:00 | NUR ---
From face sheets contact. Dialed [phone] for angel keller -spouse to get for consent for possible EGD/ COLONOSCOPY with [employer] phone sanitary aide # [phone] Yessenia. No answering machine and nobody answered phone. Attempted to call for [place] [place] [phone] no answer and no answering machine available. Attempted to call [phone] Lala ortiz's cousin spoke with cousins left message to call back at [phone] and that were trying to get consent. Awaiting call back.
--- NOTE | 2020-05-13 18:32 | NUR ---
Consent received from Valeri keller for egd/colonoscopy for dr foote. Spoke with warehouse specialist and DR Foote hasn't called in the procedure with warehouse specialist.
--- NOTE | 2020-05-13 20:23 | NUR ---
Telephone call to Dr Foote regarding order for EGD with colonoscopy. Per Dr Foote, just obtain consent for now but pt will not have procedure yet at this time and no need to place pt on NPO tonight. Instructions read back and verified. Informed Dr. Foote that consent has already been obtained.
--- NOTE | 2020-05-13 20:37 | NUR ---
Received patient lying in bed. Asleep but easily arouse to verbal stimuli. Non -verbal but is able to make eye contact when spoke to. In no apparent distress. No signs or symptoms of pain or SOB. PIV on right wrist intact and patent. NSR on tele at 78/min. GT feeding on going at 65cc/hr. Safety measure initiated. Continue to monitor.
[2020-05-13] MEDS: TEMAZEPAM 15 MG CAPSULE GT PRN (20:53)
[2020-05-14] VITALS (7 sets, daily range): BP systolic 90–171; BP diastolic 40–58
--- NOTE | 2020-05-14 | NUR ---
Noted patient IV dislodge on right wrist. Started new IV on right AC #20G.
--- NOTE | 2020-05-14 03:18 | NUR ---
PATIENT ON CONT MEJIA VENT WITH SHILEY # [address] AND SECURED, SUCTION, CHECK CUFF, TRACH CARE , ALL VENT ALARMS GOOD, NO VENT CHANGES MADE, VENT SETTINGS, A/C 15, VT 550ML, PEEP 5, 30% . Grace THURMAN RCP Addendum: 05/14/20 at 0320 by VICKY THURMAN RT Amended: Links added.
--- NOTE | 2020-05-14 06:21 | NUR ---
Patient slept well after having Restoril last night. Remains alert x1 only. Non-verbal. Trach with vent in place. Suction secretions PRN and able to obtain small amount of whitish phlegm. HOB kept elevated. NSR on tele at 77/min. GT feeding and flushing well tolerated. Incontinent care provided. Turn and reposition for comfort. Kept clean and dry. Safety measure maintained.
[2020-05-14] MEDS: PANTOPRAZOLE ORAL SUSPENSION 40 MG SUSPDR.PKT GT SCH (06:35)
[2020-05-14] MEDS: SUCRALFATE 1 G TABLET GT SCH ×2 (06:35→11:45)
[2020-05-14] MEDS: hydrALAZINE HCL 50 MG TABLET GT SCH ×2 (06:35→14:47)
[2020-05-14 06:57] LABS: BASOPHILS # (AUTO) 0.1 K/uL (0.0-8.0); BASOPHILS % (AUTO) 1.1 % (0.0-2.0); EOSINOPHILS # (AUTO) 0.1 K/uL (0.0-0.7); EOSINOPHILS % (AUTO) 1.8 % (0.0-7.0); HEMATOCRIT 25.5 % (36.7-47.1); HEMOGLOBIN 8.4 g/dL (12.5-16.3); LYMPHOCYTES # (AUTO) 0.9 K/uL (20.0-40.0); LYMPHOCYTES % (AUTO) 11.4 % (20.5-51.5); MEAN CORPUSCULAR HEMOGLOBIN 27.2 uug (23.8-33.4); MEAN CORPUSCULAR HGB CONC 33 g/dL (32.5-36.3); MEAN CORPUSCULAR VOLUME 82.8 fL (73.0-96.2); MONOCYTES # (AUTO) 0.6 K/uL (2.0-10.0); MONOCYTES % (AUTO) 7.9 % (0.0-11.0); NEUTROPHILS # (AUTO) 5.8 K/uL (1.8-8.9); NEUTROPHILS % (AUTO) 77.8 % (38.5-71.5); PLATELET COUNT (AUTO) 305 K/uL (152-348); RED BLOOD CELL COUNT(AUTO) 3.08 MIL/uL (4.06-5.63); WHITE BLOOD COUNT (AUTO) 7.5 K/uL (3.6-10.2)
[2020-05-14 07:41] LABS: CREATININE 3.2 mg/dL (0.6-1.3); MAGNESIUM 2.5 mg/dL (1.8-2.4); PHOSPHOROUS 1.9 mg/dL (2.5-4.9); POTASSIUM 4.1 mmol/L (3.5-5.1)
[2020-05-14] MEDS: ZINC SULFATE 220 MG CAPSULE GT SCH (08:59)
[2020-05-14] MEDS: ACIDOPHILUS/BULGARICUS CHEW TAB GT SCH (08:59)
[2020-05-14] MEDS: AMLODIPINE 10 MG TABLET GT SCH (09:00)
[2020-05-14] MEDS: LOSARTAN POTASSIUM 50 MG TABLET GT SCH (09:00)
--- NOTE | 2020-05-14 09:00 | NUR ---
Patient seen by hospitalist and CUSTOMER EXPERIENCE ASSOCIATE for nephrology. Both agreed to discharge patient back to [facility] after dialysis.
[2020-05-14] MEDS: ALPRAZOLAM 0.5 MG TABLET GT PRN (09:13)
[2020-05-14] MEDS: HYDROCODONE/APAP 5-325MG TABLET PO PRN ×2 (09:15→14:46)
[2020-05-14] MEDS: PROTEIN SUPPLEMENT (PROSTAT) 30 ML LIQUID GT SCH (09:16)
--- NOTE | 2020-05-14 10:00 | NUR ---
Hemodialysis nurse in and dialyzed patient from 1000 to 1230. Patient tolerated well and removed 1100 cc of fluids.
[2020-05-14 11:07] LABS: *IMMUNOGLOBULIN G, SERUM 2849 mg/dL (603-1613); IMMUNOGLOBULIN A, SERUM 459 mg/dL (90-386); IMMUNOGLOBULIN M, SERUM 99 mg/dL (20-172)
--- NOTE | 2020-05-14 13:30 | NUR ---
[facility] Staff notified about patient going back to facility. Report given to Marta Pardo.
--- NOTE | 2020-05-14 15:45 | NUR ---
Patient discharged to [facility]. Patient transported via ambulance with respiratory on board for ventilator management. Report given to ambulance staff.
[2020-05-15 10:06] LABS: A/G RATIO 0.4 (0.7-1.7); ALBUMIN 2.2 g/dL (2.9-4.4); ALPHA-1-GLOBULIN 0.4 g/dL (0.0-0.4); GAMMA GLOBULIN 2.8 g/dL (0.4-1.8); GLOBULIN, TOTAL 5.1 g/dL (2.2-3.9); M-SPIKE Not Observed g/dL (Not Observed)
[2020-05-16 05:06] LABS: BETA-2 MICROGLOBULIN, SERUM 32.7 mg/L (0.6-2.4)
== END 2020-05-14 16:06 | DRG 377 ==
LOC: ER 20:09 → TELE3 23:16 → TELE-TD3 05-10 08:00
PROVIDERS: ADMIT Nurse Practitioner Acute Care; ATTEND Nurse Practitioner Family
PROC: 5A1955Z Respiratory Ventilation, Greater than 96 Consecutive Hours (ICD-10-PCS; 2020-05-09)
PROC: 5A1D70Z Performance of Urinary Filtration, Intermittent, Less than 6 Hours Per Day (ICD-10-PCS; principal; 2020-05-10)
PROC: 30233N1 Transfusion of Nonautologous Red Blood Cells into Peripheral Vein, Percutaneous Approach (ICD-10-PCS; 2020-05-10)
DX: K92.2 Gastrointestinal hemorrhage, unspecified (principal); N18.6 End stage renal disease; I50.33 Acute on chronic diastolic (congestive) heart failure; E43 Unspecified severe protein-calorie malnutrition; I13.2 Hypertensive heart and chronic kidney disease with heart failure and with stage 5 chronic kidney disease, or end stage renal disease; I50.32 Chronic diastolic (congestive) heart failure; J96.10 Chronic respiratory failure, unspecified whether with hypoxia or hypercapnia; D68.69 Other thrombophilia; Z99.11 Dependence on respirator [ventilator] status; L97.419 Non-pressure chronic ulcer of right heel and midfoot with unspecified severity; L97.429 Non-pressure chronic ulcer of left heel and midfoot with unspecified severity; G93.40 Encephalopathy, unspecified; L02.416 Cutaneous abscess of left lower limb; E11.22 Type 2 diabetes mellitus with diabetic chronic kidney disease; Z99.2 Dependence on renal dialysis; D63.1 Anemia in chronic kidney disease; D50.0 Iron deficiency anemia secondary to blood loss (chronic); Z86.16 Personal history of COVID-19; Z93.0 Tracheostomy status; D47.2 Monoclonal gammopathy; E03.9 Hypothyroidism, unspecified; I48.91 Unspecified atrial fibrillation; Z20.822 Contact with and (suspected) exposure to COVID-19; Z93.1 Gastrostomy status; I25.10 Atherosclerotic heart disease of native coronary artery without angina pectoris; Z86.74 Personal history of sudden cardiac arrest; E11.621 Type 2 diabetes mellitus with foot ulcer; E11.40 Type 2 diabetes mellitus with diabetic neuropathy, unspecified; I25.2 Old myocardial infarction; L89.150 Pressure ulcer of sacral region, unstageable; K44.9 Diaphragmatic hernia without obstruction or gangrene; K29.70 Gastritis, unspecified, without bleeding; K64.9 Unspecified hemorrhoids; R13.10 Dysphagia, unspecified; Z68.22 Body mass index [BMI] 22.0-22.9, adult; L98.8 Other specified disorders of the skin and subcutaneous tissue
CPT/HCPCS: 36415; 70030-TC; 71045; 82784; 83550; 83690; 83735; 84100; 84155; 84165; 84443; 85025; 85730; 86334; 86850; 86900; 86901; 86920; 87040; 94002; 94003; A4217; A4663; G0378; J0885; J3490; P9016-BL; P9021

== ENCOUNTER 2020-05-27 17:16 | Inpatient (IN) | payer MEDICARE, MEDICAID ==
[~2020-05-27] VITALS: Ht 165.1 cm; Wt 59.0 kg
[~2020-05-27 17:16] MED LIST changes: +ACID1TAB4 GT; -CLON1PAT TD; +SUCR1TAB GT
[2020-05-27 18:17] LABS: BASOPHILS # (AUTO) 0.1 K/uL (0.0-8.0); EOSINOPHILS # (AUTO) 0.1 K/uL (0.0-0.7); LYMPHOCYTES # (AUTO) 0.6 K/uL (20.0-40.0); MEAN CORPUSCULAR HEMOGLOBIN 26.8 uug (23.8-33.4); MEAN CORPUSCULAR VOLUME 81.8 fL (73.0-96.2); NEUTROPHILS # (AUTO) 4.2 K/uL (1.8-8.9); WHITE BLOOD COUNT (AUTO) 5.4 K/uL (3.6-10.2)
[2020-05-27 18:19] LABS: BASOPHILS % (AUTO) 1.9 % (0.0-2.0); LYMPHOCYTES % (AUTO) 10.3 % (20.5-51.5); MEAN CORPUSCULAR HGB CONC 33 g/dL (32.5-36.3); MONOCYTES # (AUTO) 0.4 K/uL (2.0-10.0); MONOCYTES % (AUTO) 7.8 % (0.0-11.0); PLATELET COUNT (AUTO) 319 K/uL (152-348)
[2020-05-27 18:22] LABS: *OCCULT BLOOD STOOL NEGATIVE (NEGATIVE); RED BLOOD CELL COUNT(AUTO) 2.33 MIL/uL (4.06-5.63)
[2020-05-27 18:23] LABS: HEMATOCRIT 19.1 % (36.7-47.1); HEMOGLOBIN 6.2 g/dL (12.5-16.3)
[2020-05-27 18:24] LABS: CREATININE 1.7 mg/dL (0.6-1.3); POTASSIUM 2.9 mmol/L (3.5-5.1)
[2020-05-27 18:29] LABS: BILIRUBIN,DIRECT 0.2 mg/dL (0.0-0.2); BILIRUBIN,TOTAL 0.6 mg/dL (0.2-1.0); TOTAL PROTEIN, SERUM 8.4 g/dL (6.4-8.2)
[2020-05-27] MEDS ORDERED: ACET-2154 GT ×3 (18:30)
[2020-05-27] MEDS ORDERED: FOLI0.8T2 GT (18:30)
[2020-05-27] MEDS ORDERED: EPOE1VIA12 SQ (18:30)
[2020-05-27] MEDS ORDERED: LEVO25TA2 GT (18:30)
[2020-05-27] MEDS ORDERED: PANT40TA49 GT (18:30)
[2020-05-27] MEDS ORDERED: HYDR-3972 GT (18:30)
[2020-05-27] MEDS ORDERED: CEFEPIME HCL 1 G in IV DEXTROSE 5% 50 ML IV ONE (18:30)
[2020-05-27] MEDS ORDERED: POTASSIUM CHLORIDE 20 MEQ POWDER PACKET GT ONE (18:30)
[2020-05-27] MEDS ORDERED: AZITHROMYCIN IV 500 MG in IV DEXTROSE 5% 250 ML IV ONE (18:30)
--- NOTE | 2020-05-27 18:32 | NUR ---
PT IS IN ROOM #1B. DR GIFFORD EVALUATED THE PT.
[2020-05-27 18:45] LABS: MAGNESIUM 2.2 mg/dL (1.8-2.4); PHOSPHOROUS 1.5 mg/dL (2.5-4.9)
[2020-05-27] MEDS ORDERED: CEFEPIME HCL 1 G VIAL ONE (18:51)
--- NOTE | 2020-05-27 18:55 | NUR ---
AFTER INSERTION I&O F/C NO URINE CAME OUT. DR CURIEL WAS NOTIFIED. PT TOLERATED TO PROCEDURE WITHOUT COMPLICATIONS.
--- NOTE | 2020-05-27 19:00 | NUR ---
Patient is a 59 male who has admitted to [facility] numerous times of the past 6-10 months. Previously COVID + and was coded two times. He was brought into the ED this time for "Abnormal Labs". Blood Pressure elevated on my intial assessment (197/77). All other vital signs wnls. HGB lab results = 6.2 Trach to Vent - Settings: AC:18 TV:550 Fio2:30% PEEP:5 Day shift ED RN catheterized the patient for a straight cath and was not able to get any urine.
[2020-05-27 19:01] LABS: THYROID STIMULATING HORMONE 6.798 mIU/mL (0.358-3.740)
[2020-05-27] MEDS ORDERED: hydrALAZINE HCL 20 MG/1 ML VIAL ONE ×3 (19:10→20:32)
[2020-05-27] MEDS ORDERED: hydrALAZINE HCL 20 MG/1 ML VIAL IV ONE ×3 (19:15→20:30)
[2020-05-27] MEDS ORDERED: POTASSIUM CHLORIDE 20 MEQ POWDER PACKET ONE (19:18)
--- NOTE | 2020-05-27 20:00 | NUR ---
Blood transfusion initiated. IBRAHIMA Talamantes verified blood.
[2020-05-27] MEDS ORDERED: SIMETHICONE 80 MG TAB.CHEW GT PRN (21:00)
[2020-05-27] MEDS ORDERED: HYDROCODONE/APAP 5-325MG TABLET PO PRN (21:00)
[2020-05-27] MEDS ORDERED: Z GUARD REMEDY PASTE 57 GM TUBE TOP PRN (21:00)
[2020-05-27] MEDS ORDERED: EPOETIN ALFA 10,000 UNITS/ML VIAL SQ SCH (21:00)
[2020-05-27] MEDS ORDERED: ALPRAZOLAM 0.5 MG TABLET GT PRN (21:00)
[2020-05-27] MEDS ORDERED: TEMAZEPAM 15 MG CAPSULE GT PRN (21:00)
[2020-05-27] MEDS ORDERED: MAGNESIUM HYDROXIDE 30 ML LIQUID UDC PO PRN (21:00)
[2020-05-27] MEDS ORDERED: ONDANSETRON 4 MG/2 ML VIAL IV PRN (21:00)
[2020-05-27] MEDS ORDERED: NEUTRA PHOS PACKET PO ONE (21:00)
[2020-05-27] MEDS ORDERED: HYDROCODONE/APAP 5-325MG TABLET GT PRN (21:00)
[2020-05-27] MEDS ORDERED: ACETAMINOPHEN 325 MG TABLET PO PRN (21:00)
[2020-05-27 22:00] VITALS: BP 145/65
--- NOTE | 2020-05-27 22:07 | NUR ---
Patient transferred to room 310 - [facility] admission. Under the care of Jose David ALEXANDRA.
[2020-05-27 22:22] LABS: EOSINOPHILS % (MANUAL) 2 % (0-8); LYMPHOCYTES % (MANUAL) 9 % (20-40); MONOCYTES % (MANUAL) 4 % (2-10); NEUTROPHILS % (MANUAL) 85 % (42-75)
[2020-05-27 22:30] VITALS: BP 149/49
--- NOTE | 2020-05-27 22:30 | NUR ---
REceived pt from ER with ongoing blood transfusion; RT placed pt on vent; dressing change to sacral and heel wounds; suctioned pt's secretion;
[2020-05-27] MEDS: hydrALAZINE HCL 50 MG TABLET GT SCH (23:33)
[2020-05-27] MEDS: ALPRAZOLAM 0.5 MG TABLET GT PRN (23:34)
[2020-05-27] MEDS: SUCRALFATE 1 G TABLET GT SCH (23:39)
[2020-05-27] MEDS ORDERED: NEPRO 1000 ML GT PRN (23:45)
[2020-05-28] VITALS: BP 138/35
[2020-05-28] MEDS ORDERED: AZITHROMYCIN 500MG/ D5W 250ML IVPB **ER PYXIS ONLY IV ONE (00:43)
--- NOTE | 2020-05-28 03:57 | NUR ---
PATIENT ANJELICA UP TO RM# 310 WITH RT ASSIST , AMBU BAG VIA SHILEY # 8 TRACH, PT BACK ON MEJIA VENT ,APPROX 22:15, WITH SETTINGS, A/C 18, VT 550ML, PEEP5, FIO2 2 30%, PT DOES ASSIST, AND AWAKE AT TIMES, SUCTION, CHECK CUFF, NO VENT CHANGES MADE, PULSE OXY CONT AT BEDSDE.Grace THURMAN VALUE ENGINEER Addendum: 05/28/20 at 0359 by VICKY THURMAN RT Amended: Links added.
[2020-05-28 04:06] VITALS: BP 162/44
[2020-05-28] MEDS: hydrALAZINE HCL 50 MG TABLET GT SCH ×3 (05:35→22:55)
[2020-05-28] MEDS: LEVOTHYROXINE SODIUM 25 MCG TABLET GT SCH (05:35)
[2020-05-28] MEDS: SUCRALFATE 1 G TABLET GT SCH ×4 (05:35→21:25)
--- NOTE | 2020-05-28 06:28 | NUR ---
Pt rested well in between care; WCRN consult and dietary consult ordered as well as Low air loss mattress; pt had a small BM, remains anuric; continue to monitor; continue plan of care.
[2020-05-28 07:01] LABS: BASOPHILS # (AUTO) 0.1 K/uL (0.0-8.0); BASOPHILS % (AUTO) 1.7 % (0.0-2.0); EOSINOPHILS # (AUTO) 0.1 K/uL (0.0-0.7); EOSINOPHILS % (AUTO) 2.3 % (0.0-7.0); HEMATOCRIT 24.5 % (36.7-47.1); HEMOGLOBIN 8.2 g/dL (12.5-16.3); LYMPHOCYTES # (AUTO) 0.6 K/uL (20.0-40.0); LYMPHOCYTES % (AUTO) 10.2 % (20.5-51.5); MEAN CORPUSCULAR HEMOGLOBIN 28.2 uug (23.8-33.4); MEAN CORPUSCULAR HGB CONC 34 g/dL (32.5-36.3); MEAN CORPUSCULAR VOLUME 84.4 fL (73.0-96.2); MONOCYTES # (AUTO) 0.6 K/uL (2.0-10.0); MONOCYTES % (AUTO) 10.4 % (0.0-11.0); NEUTROPHILS # (AUTO) 4.5 K/uL (1.8-8.9); NEUTROPHILS % (AUTO) 75.4 % (38.5-71.5); PLATELET COUNT (AUTO) 332 K/uL (152-348); WHITE BLOOD COUNT (AUTO) 5.9 K/uL (3.6-10.2)
[2020-05-28 07:46] LABS: CREATININE 2.2 mg/dL (0.6-1.3); MAGNESIUM 2.1 mg/dL (1.8-2.4); PHOSPHOROUS 2.2 mg/dL (2.5-4.9); POTASSIUM 4.1 mmol/L (3.5-5.1)
[2020-05-28] MEDS: PROTEIN SUPPLEMENT (PROSTAT) 30 ML LIQUID GT SCH (08:34)
[2020-05-28] MEDS: ZINC SULFATE 220 MG CAPSULE GT SCH (08:39)
[2020-05-28] MEDS: FOLIC ACID/VITAMIN B COMP W-C TABLET GT SCH (08:40)
[2020-05-28] MEDS: LOSARTAN POTASSIUM 50 MG TABLET GT SCH ×2 (08:40→16:12)
[2020-05-28] MEDS: ACIDOPHILUS/BULGARICUS CHEW TAB GT SCH ×2 (08:40→16:12)
[2020-05-28] MEDS: AMLODIPINE 10 MG TABLET GT SCH (08:40)
[2020-05-28] MEDS ORDERED: PANTOPRAZOLE SODIUM 40 MG TABLET.DR PO SCH (09:00)
--- NOTE | 2020-05-28 09:55 | NUR ---
WOUND CARE CONSULT: PT PRESENTS WITH RT HEEL SCARRING, LEFT HEEL WOUND AND SACRAL UNSTAGEABLE ULCER, PRESENT ON ADMISSION. RECOMMEND DPM CONSULT AND SURGICAL CONSULT. DR GILL AND DR KUMAR NOTIFIED OF CONSULT REQUESTS. RECOMMENDATIONS MADE FOR SKIN PROTECTION. DISCUSSED WITH NURSING STAFF. PT TO BE PLACED ON FIRST STEP [facility]. IN AGREEMENT WITH PLAN OF CARE. Addendum: 05/28/20 at 0958 by GABI NICHOLSON RN Amended: Links added.
[2020-05-28 11:43] VITALS: BP_SYST 118; BP_SYST 126; BP_DIAS 86; BP_DIAS 88
[2020-05-28] MEDS ORDERED: NEUTRA PHOS PACKET PO ONE (15:15)
[2020-05-28] MEDS: PANTOPRAZOLE ORAL SUSPENSION 40 MG SUSPDR.PKT GT SCH (16:13)
[2020-05-28] MEDS ORDERED: EPOETIN ALFA 10,000 UNITS/ML VIAL SQ SCH (18:00)
[2020-05-28 20:12] VITALS: BP 147/25
--- NOTE | 2020-05-28 21:58 | NUR ---
PATIENT AWAKE EYES OPEN, NO SOB NO CHEST PAIN NOTED. PATIENT ON TELE MONITOR SINUS RHYTHM AT THIS TIME. TOLERATE GTF, NO RESIDUAL NOTED, TRACH INTACT, ON VENT WITH PRESCRIBE SETTING, NO S/S OF DESATURATION NOTED. PATIENT HAS EPISODE OF COUGHING SUCTION Q2 AND NEEDED. PATIENT HGH 8.2 WNL, LAB IN AM. CONT TO [facility].
[2020-05-29 00:04] VITALS: BP 144/21
[2020-05-29 04:12] VITALS: BP 167/49
[2020-05-29] MEDS: hydrALAZINE HCL 50 MG TABLET GT SCH ×3 (05:33→21:07)
[2020-05-29] MEDS: PANTOPRAZOLE ORAL SUSPENSION 40 MG SUSPDR.PKT GT SCH ×2 (05:33→16:00)
[2020-05-29 06:16] LABS: BASOPHILS # (AUTO) 0.1 K/uL (0.0-8.0); BASOPHILS % (AUTO) 1.1 % (0.0-2.0); EOSINOPHILS # (AUTO) 0.1 K/uL (0.0-0.7); EOSINOPHILS % (AUTO) 1.4 % (0.0-7.0); HEMATOCRIT 24.2 % (36.7-47.1); HEMOGLOBIN 7.9 g/dL (12.5-16.3); LYMPHOCYTES # (AUTO) 0.6 K/uL (20.0-40.0); MEAN CORPUSCULAR HEMOGLOBIN 27.5 uug (23.8-33.4); MEAN CORPUSCULAR HGB CONC 33 g/dL (32.5-36.3); MEAN CORPUSCULAR VOLUME 84.3 fL (73.0-96.2); MONOCYTES # (AUTO) 0.9 K/uL (2.0-10.0); MONOCYTES % (AUTO) 8.5 % (0.0-11.0); NEUTROPHILS # (AUTO) 8.4 K/uL (1.8-8.9); PLATELET COUNT (AUTO) 366 K/uL (152-348); RED BLOOD CELL COUNT(AUTO) 2.87 MIL/uL (4.06-5.63); WHITE BLOOD COUNT (AUTO) 10.1 K/uL (3.6-10.2)
[2020-05-29] MEDS: LEVOTHYROXINE SODIUM 25 MCG TABLET GT SCH (06:29)
[2020-05-29] MEDS: SUCRALFATE 1 G TABLET GT SCH ×4 (06:29→21:06)
[2020-05-29 06:32] LABS: CREATININE 2.6 mg/dL (0.6-1.3); POTASSIUM 4.1 mmol/L (3.5-5.1)
--- NOTE | 2020-05-29 06:48 | NUR ---
Patient awake, no complain of pain at this time, turned and reposition. tx done on sacrum sores, kept clean and dry. cont to monitor.
--- NOTE | 2020-05-29 07:30 | NUR ---
Patient report received from tube closing machine operator. Patient is seen in bed resting. He is awake. Oriented to person. Pt is controlled a fib on monitor. Mechanical vent 18BPM, 550/30/5 with patient saturating at 99%. Patient scheduled for dialysis. No pain noted. Patient comfortable. Will continue to monitor.
[2020-05-29] MEDS ORDERED: NEUTRA PHOS PACKET PO ONE (08:00)
[2020-05-29] MEDS: ALPRAZOLAM 0.5 MG TABLET GT PRN (08:24)
[2020-05-29] MEDS: ZINC SULFATE 220 MG CAPSULE GT SCH (08:24)
[2020-05-29] MEDS: AMLODIPINE 10 MG TABLET GT SCH (08:24)
[2020-05-29] MEDS: ACIDOPHILUS/BULGARICUS CHEW TAB GT SCH ×2 (08:24→16:00)
[2020-05-29] MEDS: LOSARTAN POTASSIUM 50 MG TABLET GT SCH ×2 (08:25→16:01)
[2020-05-29] MEDS: FOLIC ACID/VITAMIN B COMP W-C TABLET GT SCH (08:25)
[2020-05-29] MEDS: PROTEIN SUPPLEMENT (PROSTAT) 30 ML LIQUID GT SCH (08:25)
[2020-05-29] MEDS ORDERED: NEPRO 1000 ML GT PRN ×2 (10:45→10:52)
[2020-05-29 11:51] VITALS: BP 154/71
[2020-05-29 16:00] VITALS: BP 168/29
[2020-05-29 20:00] VITALS: BP 150/25
--- NOTE | 2020-05-29 20:00 | NUR ---
Received patient lying in bed. Asleep but arouse to tactile stimuli. Opens his eyes briefly, but non-verbal. In no apparent distress. Trach to vent in place. No signs or symptoms is pain or SOB. O2 sat at 100% at this time. Gt feeding ongoing. NSR on tele at 75/min. Iv site on right upper arm intact and patent. Left upper arm with AV shunt. Turned and reposition for comfort. Safety measure initiated. Continue to monitor.
[2020-05-29 20:12] VITALS: BP 150/25
--- NOTE | 2020-05-29 21:36 | NUR ---
Verbal consent over the telephone obtain from patient Ayah Trammell for wound debridement, witnessed by this nurse and smelter charger nurse Daily.
[2020-05-30] VITALS (8 sets, daily range): BP systolic 133–179; BP diastolic 31–47
[2020-05-30] MEDS: ALPRAZOLAM 0.5 MG TABLET GT PRN ×2 (00:32→18:44)
[2020-05-30] MEDS: ACETAMINOPHEN 650 MG/20.3 ML LIQUID UDC GT PRN ×2 (00:32→18:44)
[2020-05-30] MEDS: hydrALAZINE HCL 50 MG TABLET GT SCH ×2 (05:09→13:24)
[2020-05-30] MEDS: PANTOPRAZOLE ORAL SUSPENSION 40 MG SUSPDR.PKT GT SCH ×2 (05:09→16:54)
--- NOTE | 2020-05-30 06:21 | NUR ---
Asleep but arouse to tactile stimuli. Opens his eyes, but non-verbal. In no apparent distress. Trach to vent in place. No signs or symptoms of pain or SOB. Suction secretions PRN and able to obtain moderate amount of whitish secretions. GF feeding and flushing well tolerated. NSR on tele at 72/min. IV site on right upper arm intact and patent. Left upper arm with AV shunt. Safety measure maintained.
[2020-05-30 06:23] LABS: BASOPHILS # (AUTO) 0.1 K/uL (0.0-8.0); BASOPHILS % (AUTO) 0.9 % (0.0-2.0); EOSINOPHILS # (AUTO) 0.1 K/uL (0.0-0.7); EOSINOPHILS % (AUTO) 1.4 % (0.0-7.0); HEMATOCRIT 22.9 % (36.7-47.1); HEMOGLOBIN 7.6 g/dL (12.5-16.3); LYMPHOCYTES # (AUTO) 0.8 K/uL (20.0-40.0); LYMPHOCYTES % (AUTO) 10.5 % (20.5-51.5); MEAN CORPUSCULAR HEMOGLOBIN 28.1 uug (23.8-33.4); MEAN CORPUSCULAR HGB CONC 33 g/dL (32.5-36.3); MONOCYTES # (AUTO) 0.7 K/uL (2.0-10.0); NEUTROPHILS # (AUTO) 6.3 K/uL (1.8-8.9); NEUTROPHILS % (AUTO) 78.2 % (38.5-71.5); PLATELET COUNT (AUTO) 365 K/uL (152-348)
[2020-05-30] MEDS: SUCRALFATE 1 G TABLET GT SCH ×3 (06:34→16:53)
[2020-05-30] MEDS: LEVOTHYROXINE SODIUM 25 MCG TABLET GT SCH (06:34)
[2020-05-30 06:43] LABS: CREATININE 2.4 mg/dL (0.6-1.3); PHOSPHOROUS 2.2 mg/dL (2.5-4.9); POTASSIUM 3.6 mmol/L (3.5-5.1)
--- NOTE | 2020-05-30 07:30 | NUR ---
Awake, opens eyes spontaneously. Trach to vent with settings TV 550, AC 28, FIO2 30%, PEEP 5, O2 SAT 100%. G tube feeding off.
[2020-05-30] MEDS: MINOXIDIL 2.5 MG TABLET PO SCH ×2 (09:17→13:23)
[2020-05-30] MEDS: ACIDOPHILUS/BULGARICUS CHEW TAB GT SCH ×2 (09:17→16:53)
[2020-05-30] MEDS: LOSARTAN POTASSIUM 50 MG TABLET GT SCH ×2 (09:17→16:53)
[2020-05-30] MEDS: FOLIC ACID/VITAMIN B COMP W-C TABLET GT SCH (09:17)
[2020-05-30] MEDS: PROTEIN SUPPLEMENT (PROSTAT) 30 ML LIQUID GT SCH (09:18)
[2020-05-30] MEDS: AMLODIPINE 10 MG TABLET GT SCH (09:18)
[2020-05-30] MEDS: ZINC SULFATE 220 MG CAPSULE GT SCH (09:18)
--- NOTE | 2020-05-30 12:00 | NUR ---
Oral care and trach care done. Secretions suctioned. Repositioned comfortably
[2020-05-30] MEDS ORDERED: NEPRO 1000 ML GT PRN (15:15)
[2020-05-30] MEDS ORDERED: NEUTRA PHOS PACKET NG ONE (15:30)
[2020-05-30] MEDS ORDERED: EPOETIN ALFA-EPBX 10,000 UNIT/ML VIAL SQ SCH (18:00)
--- NOTE | 2020-05-30 19:24 | NUR ---
With discharge order to [facility], report given to Jose Carlos. Saline lock removed. Tele removed. Patient anxious and feeling pain. Xanax and Tylenol given. Discharged with trach to vent; Gtube clamped
[2020-05-31] MEDS ORDERED: THERAHONEY GEL 1.5 OZ TUBE TOP SCH (09:00)
== END 2020-05-30 19:20 | DRG 377 ==
LOC: ER 17:18 → TELE-TD3 21:44 → TELE3 21:44 → UNDOADMIN 21:44 → TELE-TD3 05-29 15:33
PROVIDERS: ADMIT Family Medicine; ATTEND Family Medicine
PROC: 5A1945Z Respiratory Ventilation, 24-96 Consecutive Hours (ICD-10-PCS; principal; 2020-05-27)
PROC: 30233N1 Transfusion of Nonautologous Red Blood Cells into Peripheral Vein, Percutaneous Approach (ICD-10-PCS; 2020-05-27)
PROC: 5A1D70Z Performance of Urinary Filtration, Intermittent, Less than 6 Hours Per Day (ICD-10-PCS; 2020-05-29)
DX: K92.2 Gastrointestinal hemorrhage, unspecified (principal); E43 Unspecified severe protein-calorie malnutrition; N18.6 End stage renal disease; I50.33 Acute on chronic diastolic (congestive) heart failure; G93.41 Metabolic encephalopathy; R53.2 Functional quadriplegia; D62 Acute posthemorrhagic anemia; I13.2 Hypertensive heart and chronic kidney disease with heart failure and with stage 5 chronic kidney disease, or end stage renal disease; G61.0 Guillain-Barre syndrome; Z99.11 Dependence on respirator [ventilator] status; L02.416 Cutaneous abscess of left lower limb; E87.1 Hypo-osmolality and hyponatremia; J96.12 Chronic respiratory failure with hypercapnia; J96.11 Chronic respiratory failure with hypoxia; G93.1 Anoxic brain damage, not elsewhere classified; J98.11 Atelectasis; L97.429 Non-pressure chronic ulcer of left heel and midfoot with unspecified severity; Z68.21 Body mass index [BMI] 21.0-21.9, adult; Z86.16 Personal history of COVID-19; E03.9 Hypothyroidism, unspecified; E11.22 Type 2 diabetes mellitus with diabetic chronic kidney disease; E11.40 Type 2 diabetes mellitus with diabetic neuropathy, unspecified; E78.5 Hyperlipidemia, unspecified; E83.39 Other disorders of phosphorus metabolism; E86.1 Hypovolemia; E87.6 Hypokalemia; I48.91 Unspecified atrial fibrillation; Z93.1 Gastrostomy status; Z99.2 Dependence on renal dialysis; E88.09 Other disorders of plasma-protein metabolism, not elsewhere classified; I25.10 Atherosclerotic heart disease of native coronary artery without angina pectoris; Z87.11 Personal history of peptic ulcer disease; Z86.73 Personal history of transient ischemic attack (TIA), and cerebral infarction without residual deficits; Z74.01 Bed confinement status; L89.150 Pressure ulcer of sacral region, unstageable; Z93.0 Tracheostomy status; Z86.74 Personal history of sudden cardiac arrest; R13.10 Dysphagia, unspecified; Z87.01 Personal history of pneumonia (recurrent); I35.0 Nonrheumatic aortic (valve) stenosis; I25.2 Old myocardial infarction; Z20.822 Contact with and (suspected) exposure to COVID-19; E11.621 Type 2 diabetes mellitus with foot ulcer
CPT/HCPCS: 36415; 70030-TC; 71045; 83605; 83690; 83735; 84100; 84443; 85025; 85730; 86850; 86900; 86901; 86920; 87040; 93005; 94002; 94003; A4217; A4663; C1758; G0378; J0360; J0456; J0692; J0885; J7040; J7050; J7060; P9016-BL; P9021